=== PATIENT | male | born 1965 | race African-American/Black ===

== ENCOUNTER 2018-01-08 02:46 | Inpatient (IN) | payer OTHER ==
[2018-01-08] VITALS (28 sets, daily range): BP systolic 122–192; BP diastolic 58–96; PULSE 48–85; RESP 16–20; TEMP 98.1–98.7; O2SAT 98–100
[~2018-01-08] VITALS: Ht 190.5 cm; Wt 177.5 kg
[2018-01-08] MEDS ORDERED: METF500T PO (03:04)
[2018-01-08] MEDS ORDERED: LISI-515 PO (03:04)
[2018-01-08] MEDS ORDERED: ATOR20TA15 PO (03:04)
[2018-01-08] MEDS ORDERED: SODIUM CHLORIDE 0.9% FLUSH 10 ML FLUSH IVF PRN (03:30)
[2018-01-08] MEDS ORDERED: ASPIRIN 81 MG CHEW TAB PO ONE (03:30)
[2018-01-08] MEDS ORDERED: ONDANSETRON HCL 4 MG/2 ML VIAL IV PUSH ONE (03:30)
[2018-01-08] MEDS ORDERED: MORPHINE SULFATE 4 MG/ML INJ IV PUSH ONE (03:30)
[2018-01-08] MEDS ORDERED: NALOXONE HCL 0.4 MG/ML AMP ONE (03:46)
--- NOTE | 2018-01-08 03:53 | RADRPT ---
EXAM DATE/TIME: 01/08/2018 03:23 [place] COMPARISON: No previous studies available for comparison. INDICATIONS : Chest pain MEDICAL HISTORY : Hypercholesterolemia. Hypertension Diabetes. SURGICAL HISTORY : None. ENCOUNTER: Initial ACUITY: 1 day PAIN SCORE: 9/10 LOCATION: Bilateral chest Middle. FINDINGS: A single view of the chest demonstrates the lungs to be symmetrically aerated without evidence of mas s, infiltrate or effusion. The cardiomediastinal contours are unremarkable. Osseous structures are intact. CONCLUSION: 1. No acute cardiopulmonary disease. Fredy Packer MD on January 08, 2018 at 3:52 Board Certified Radiologist. This report was verified electronically.
[2018-01-08 04:22] LABS: BICARBONATE 27.3 MEQ/L (21.0-32.0); CALCIUM 8.7 MG/DL (8.5-10.1); CREATININE 1.32 MG/DL (0.60-1.30); MAGNESIUM 1.5 MG/DL (1.5-2.5)
[2018-01-08 04:27] LABS: TROPONIN I 0.03 NG/ML (0.02-0.05)
[2018-01-08 04:30] LABS: AUTOMATED NEUTROPHIL # 5.1 TH/MM3 (1.8-7.7); BASOPHIL % 0.6 % (0.0-2.0); EOSINOPHIL # 0.1 TH/MM3 (0-0.4); HEMATOCRIT 41.3 % (39.0-51.0); HEMOGLOBIN 13.9 GM/DL (13.0-17.0); LYMPH % 15.4 % (9.0-44.0); MEAN CELL VOLUME 81.7 FL (80.0-100.0); MEAN CORPUSCULAR HEMOGLOBIN 27.4 PG (27.0-34.0); MEAN CORPUSCULAR HGB CONC 33.5 % (32.0-36.0); MEAN PLATELET VOLUME 9.3 FL (7.0-11.0); MONO % 6.7 % (0.0-8.0); MONOCYTE # 0.5 TH/MM3 (0-0.9); NEUT % 75.3 % (16.0-70.0); PLATELET COUNT 138 TH/MM3 (150-450); RED BLOOD COUNT 5.05 MIL/MM3 (4.50-5.90); RED CELL DISTRIBUTION WIDTH 15.7 % (11.6-17.2); WHITE BLOOD COUNT 6.8 TH/MM3 (4.0-11.0)
[2018-01-08] MEDS ORDERED: HEPARIN SODIUM - IV 10,000 UNITS/10 ML VIAL IV PUSH ONE (04:30)
[2018-01-08] MEDS ORDERED: NITROGLYCERIN 2% OINT 1 GM PACKET TOPICAL ONE (04:45)
[2018-01-08 04:52] LABS: HEMATOCRIT 41.5 % (39.0-51.0); MEAN CELL VOLUME 82.5 FL (80.0-100.0); MEAN CORPUSCULAR HEMOGLOBIN 27.8 PG (27.0-34.0); MEAN CORPUSCULAR HGB CONC 33.8 % (32.0-36.0); MEAN PLATELET VOLUME 9.3 FL (7.0-11.0); PLATELET COUNT 132 TH/MM3 (150-450); RED BLOOD COUNT 5.03 MIL/MM3 (4.50-5.90); RED CELL DISTRIBUTION WIDTH 15.4 % (11.6-17.2); WHITE BLOOD COUNT 7.3 TH/MM3 (4.0-11.0)
[2018-01-08 04:59] LABS: INTERNATIONAL NORMALIZED RATIO 1.1 RATIO; PROTHROMBIN TIME - PATIENT 11.4 SEC (9.8-11.6)
--- NOTE | 2018-01-08 05:27 | PD ---
HPI . Chest pain Chief Complaint: Cardiac Complaint Time Seen by Provider: 03:18 Travel History International Travel<30 days: No Contact w/Intl Traveler<30days: No Traveled to known affect area: No History of Present Illness HPI Patient presents with a chief complaint of chest pain. Onset was about 2 hours prior to presentation. Patient states that it awakened him from sleep. He states he tried to get up and "walk it off" but was unable to do so. He rates the pain at 8/10. He subsequently presented to us for evaluation. He states that he did have some diaphoresis at the onset of his symptoms. The patient further reports that he has been having some chest pain with exertion for quite some time now. He states that he was evaluated by his primary care provider and underwent a stress test a few months ago which was negative. [facility] Past Medical History High Cholesterol: Yes Diabetes: Yes Patient Takes Glucophage: Yes Hypertension: Yes Past Surgical History Surgical History: No Previous Surgery Social History Alcohol Use: No Tobacco Use: No Substance Use: No Allergies-Medications (Allergen,Severity, Reaction): Coded Allergies: morphine (Verified Adverse Reaction, Severe, Bradycardia , 01/08/18) Hr dropped from 70's to mid 40's-50's along with sweating after 4mg Morphine IV given (01/08/18) Reported Meds & Prescriptions Reported Meds & Active Scripts Active Reported Atorvastatin (Atorvastatin Calcium) 20 Mg Tab Unknown Dose PO HS Lisinopril 20 Mg Tab 20 Mg PO DAILY Metformin (Metformin HCl) 500 Mg Tab 500 Mg PO DAILY With a meal Review of Systems Except as stated in HPI: all other systems reviewed are Neg Cardiovascular: Positive: Chest Pain or Discomfort Respiratory: No: Shortness of Breath Gastrointestinal: No: Nausea, Vomiting Physical Exam Narrative GENERAL: Awake and alert. SKIN: Initially warm/dry. He became diaphoretic following morphine. HEAD: Normocephalic. Atraumatic. EYES: Pupils equal and round. No scleral icterus. No injection or drainage. ENT: No nasal bleeding or discharge. Mucous membranes pink and moist. NECK: Trachea midline. Full range of motion without pain.. CARDIOVASCULAR: Regular rate and rhythm. Heart sounds are normal. RESPIRATORY: No accessory muscle use. Clear to auscultation. Breath sounds equal bilaterally. MUSCULOSKELETAL: No obvious deformities. NEUROLOGICAL: Awake and alert. No obvious cranial nerve deficits. Motor grossly within normal limits. Normal speech. PSYCHIATRIC: Appropriate mood and affect; insight and judgment normal. Data Data Last Documented VS Vital Signs Date Time Temp Pulse Resp B/P (MAP) Pulse Ox O2 Delivery O2 Flow Rate FiO2 01/08/18 06:30 65 20 159/77 (104) 98 Nasal Cannula 2.00 01/08/18 03:01 98.1 Orders Orders Basic Metabolic Panel (Bmp) (01/08/18 03:18) Complete Blood Count With Diff (01/08/18 03:18) Magnesium (Mg) (01/08/18 03:18) Troponin I (01/08/18 03:18) Chest, Single Ap (01/08/18 03:18) Ecg Monitoring (01/08/18 03:18) Iv Access Insert/Monitor (01/08/18 03:18) Oximetry (01/08/18 03:18) Aspirin Chew (Aspirin Chew) (01/08/18 03:30) Sodium Chloride 0.9% Flush (Ns Flush) (01/08/18 03:30) Morphine Inj (Morphine Inj) (01/08/18 03:30) Ondansetron Inj (Zofran Inj) (01/08/18 03:30) Naloxone Inj (Narcan Inj) (01/08/18 03:46) Electrocardiogram (01/08/18 05:15) Heparin Inj (Heparin Inj) (01/08/18 04:30) Heparin Inj (Heparin Inj) (01/08/18 10:30) Heparin Inj (Heparin Inj) (01/08/18 10:30) Heparin-D5w 25,000 U/250 Ml (Heparin-D5w (01/08/18 04:30) Act Partial Throm Time (Ptt) (01/08/18 04:22) Prothrombin Time / Inr (Pt) (01/08/18 04:22) Cbc No Diff, Includes Plts (01/08/18 04:22) Cbc No Diff, Includes Plts (01/11/18 06:00) Act Partial Throm Time (Ptt) (01/08/18 11:22) Occult Blood (Hemoccult) Stool (01/08/18 04:22) Nitroglycerin 2% Oint (Nitroglycerin 2% (01/08/18 04:45) Troponin I (01/08/18 05:04) Potassium Chloride (Kcl) (01/08/18 06:00) Consult Cardiology (01/08/18 ) Admit Order (Ed Use Only) (01/08/18 ) Labs Laboratory Tests Test 01/08/18 03:35 01/08/18 06:00 White Blood Count 7.3 TH/MM3 Red Blood Count 5.03 MIL/MM3 Hemoglobin 14.0 GM/DL Hematocrit 41.5 % Mean Corpuscular Volume 82.5 FL Mean Corpuscular Hemoglobin 27.8 PG Mean Corpuscular Hemoglobin Concent 33.8 % Red Cell Distribution Width 15.4 % Platelet Count 132 TH/MM3 Mean Platelet Volume 9.3 FL Neutrophils (%) (Auto) 75.3 % Lymphocytes (%) (Auto) 15.4 % Monocytes (%) (Auto) 6.7 % Eosinophils (%) (Auto) 2.0 % Basophils (%) (Auto) 0.6 % Neutrophils # (Auto) 5.1 TH/MM3 Lymphocytes # (Auto) 1.0 TH/MM3 Monocytes # (Auto) 0.5 TH/MM3 Eosinophils # (Auto) 0.1 TH/MM3 Basophils # (Auto) 0.0 TH/MM3 CBC Comment DIFF FINAL Differential Comment Prothrombin Time 11.4 SEC Prothromb Time International Ratio 1.1 RATIO Activated Partial Thromboplast Time 21.2 SEC Blood Urea Nitrogen 16 MG/DL Creatinine 1.32 MG/DL Random Glucose 185 MG/DL Calcium Level 8.7 MG/DL Magnesium Level 1.5 MG/DL Sodium Level 141 MEQ/L Potassium Level 3.2 MEQ/L Chloride Level 107 MEQ/L Carbon Dioxide Level 27.3 MEQ/L Anion Gap 7 MEQ/L Estimat Glomerular Filtration Rate 69 ML/MIN Troponin I 0.03 NG/ML 8.16 NG/ML [facility] Medical Decision Making Medical Screen Exam Complete: Yes Emergency Medical Condition: Yes Interpretation(s) His EKG had an intraventricular conduction delay. He has some nonspecific STT wave changes laterally. Differential Diagnosis Differential diagnosis of chest pain includes but is not limited to musculoskeletal pain, pulmonary embolism, acute coronary syndrome, pneumonia, pleurisy Narrative Course The patient presented for chest pain. Chest pain protocol was initiated. He was given aspirin. He was also given morphine. He became diaphoretic and bradycardic following the morphine. A second EKG was done. The second EKG shows some minimal ST segment L in the anterior leads with some reciprocal T- wave inversion. At that point, a STEMI alert was called. However, the patient then reported that he was pain-free. A third EKG was done. The third EKG does show persistence of the minimal ST segment elevation anteriorly with T-wave inversion. Dr. Naylor was then consulted. Since the patient had become pain-free , she asked that he be heparinized and that the EKG be repeated in an hour. This patient's fourth EKG has normalized with the exception of the conduction delay. The patient is pain-free. CBC & BMP Diagram 01/08/18 03:35 Calcium Level 8.7, Magnesium Level 1.5 Initial troponin is 0.03. 2nd trop was 8.16. Dr. Naylor was made aware of this. Arrangements were being made for the patient to be admitted with plans to take him to the [facility]. However, we learned that the patient's insurance had changed from [employer] to [employer]. So, the patient needed to be admitted to [facility] with a consult to the non-CP manager council. I called Dr. Guillen. He asked that I put in a consult to Dr. Fraga. This has been done. In the meantime, the patient has remained pain-free. He has had ASA, NTG and is on heparin. Critical Care Narrative Aggregate critical care time was 60 minutes. Time to perform other separately billable procedures was not included in the critical care time. My time did not include minutes spent treating any other patients simultaneously or on activities that did not directly contribute to the patient's treatment. The services I provided to this patient were to treat and/or prevent clinically significant deterioration due to acute DE I provided critical care services requiring my management, as noted below: Chart data review, documentation time, medication orders and management, vital sign assessments/reviewing monitor data, ordering and reviewing lab tests, ordering and interpreting/reviewing x-rays and diagnostic studies, care of the patient and discussion of the patient with the admitting physicians Diagnosis Primary Impression: Chest pain Qualified Codes: R07.9 - Chest pain, unspecified Additional Impression: NSTEMI (non-ST elevated myocardial infarction) Admitting Information Admitting Physician Requests: Admit Condition: Stable Destinee Henriquez MD Jan 08, 2018 05:27
[2018-01-08] MEDS ORDERED: POTASSIUM CHLORIDE 20 MEQ CONTROLLED RELEASE TAB PO ONE ×2 (06:00→12:30)
[2018-01-08] MEDS: HEPARIN-D5W 25,000 U/250 ML 250 ML IV PRN (06:02)
[2018-01-08] MEDS ORDERED: ATORVASTATIN 40 MG TAB PO ONE (09:15)
[2018-01-08] MEDS ORDERED: GLUCAGON 1 MG/ML VIAL OTHER PRN (09:15)
[2018-01-08] MEDS ORDERED: ALPRAZolam 0.25 MG TAB PO PRN (09:15)
[2018-01-08] MEDS ORDERED: ACETAMINOPHEN 325 MG TAB PO PRN (09:15)
[2018-01-08] MEDS ORDERED: MAGNESIUM HYDROXIDE SUSP 30 ML CUP PO PRN (09:15)
[2018-01-08] MEDS ORDERED: BISACODYL 10 MG SUPP RECTAL PRN (09:15)
[2018-01-08] MEDS ORDERED: NITROGLYCERIN 0.4 MG SL 25 TABS/BTL SL PRN (09:15)
[2018-01-08] MEDS ORDERED: SENNOSIDES 8.6 MG TAB PO PRN (09:15)
[2018-01-08] MEDS ORDERED: NALOXONE HCL 0.4 MG/ML AMP IV PUSH PRN (09:15)
[2018-01-08] MEDS ORDERED: ONDANSETRON HCL 4 MG/2 ML VIAL IV PUSH PRN (09:15)
[2018-01-08] MEDS ORDERED: ZOLPIDEM TARTRATE 5 MG TAB PO PRN (09:15)
[2018-01-08] MEDS ORDERED: SODIUM CHLORIDE 0.9% FLUSH 10 ML FLUSH IV FLUSH PRN ×2 (09:15)
[2018-01-08] MEDS ORDERED: DEXTROSE 50% IN WATER 50 ML VIAL(D50) IV PUSH PRN (09:15)
[2018-01-08] MEDS ORDERED: LACTULOSE SYRUP 20 GM/30 ML CUP PO PRN (09:15)
[2018-01-08] MEDS ORDERED: METOCLOPRAMIDE HCL 10 MG/2 ML VIAL IV PUSH PRN (09:15)
[2018-01-08] MEDS ORDERED: HYDROmorphone HCL PF 0.5 MG/0.5 ML SYRINGE IV PUSH PRN (09:30)
[2018-01-08] MEDS ORDERED: HYDROmorphone HCL PF 2 MG/ML VIAL IV PUSH PRN ×2 (09:30)
[2018-01-08] MEDS: NITROGLYCERIN 2% OINT 1 GM PACKET TOP SCH ×3 (09:55→22:06)
[2018-01-08] MEDS ORDERED: diphenhydrAMINE HCL 50 MG CAP PO SCH (10:00)
[2018-01-08] MEDS ORDERED: DIAZEPAM 10 MG TAB PO SCH (10:00)
[2018-01-08] MEDS ORDERED: MIDAZOLAM HCL 2 MG/2 ML VIAL IV PUSH SCH (10:00)
[2018-01-08 10:16] LABS: ALBUMIN 3.4 GM/DL (3.4-5.0); ALT (GPT) 50 U/L (12-78); AST (GOT) 156 U/L (15-37); BICARBONATE 28.5 MEQ/L (21.0-32.0); BLOOD UREA NITROGEN 15 MG/DL (7-18); CHLORIDE 108 MEQ/L (98-107); CREATININE 1.21 MG/DL (0.60-1.30); GLOMERULAR FILTRATION RATE 77 ML/MIN (>89); GLUCOSE,RANDOM 112 MG/DL (74-106); SODIUM (NA) 141 MEQ/L (136-145)
[2018-01-08 10:18] LABS: ALKALINE PHOSPHATASE 59 U/L (45-117); TOTAL BILIRUBIN ADULT 0.5 MG/DL (0.2-1.0)
--- NOTE | 2018-01-08 10:18 | MB ---
cc: Yefri Guillen MD DATE: 01/08/2018 REASON FOR CONSULTATION: Acute non-ST elevation myocardial infarction. HISTORY OF PRESENT ILLNESS: The patient is a pleasant 52-year-old male with a history of hypertension, diabetes, hyperlipidemia, who was in his usual state of health up until 1 a.m. this morning when he developed fairly severe substernal chest discomfort described as "pressure" associated with diaphoresis. He came to the emergency department for further evaluation and treatment. En route to the emergency department, he was given aspirin and sublingual nitroglycerin with considerable relief of his symptoms, although it persisted. In the emergency department, the chest discomfort once again escalated in intensity. He was given morphine and had an allergic reaction to the drug. The episode of chest discomfort probably lasted about 2-1/2 hours. In retrospect, he notes similar chest discomforts over the past year, although much less intensity and usually never lasting more than a few minutes. He denies pleurisy, dizziness, syncope, near syncope, palpitations, pedal edema, paroxysmal nocturnal dyspnea. Currently, he is resting comfortably, denying any chest discomfort. PAST MEDICAL HISTORY: 1. Hyperlipidemia. 2. Hypertension. 3. Diabetes. CARDIAC MEDICATIONS AT HOME: Atorvastatin 20 mg at bedtime, lisinopril 20 mg daily. ALLERGIES: MORPHINE. FAMILY HISTORY: There is no significant family history of early myocardial infarction. SOCIAL HISTORY: The patient denies any history of alcohol or tobacco abuse. REVIEW OF SYSTEMS: As in the history of present illness, otherwise negative or noncontributory. He also denies headache, visual changes, abdominal pain, melena, dyspepsia, bright red blood per rectum, flu symptoms. PHYSICAL EXAMINATION: VITAL SIGNS: His blood pressure 148/76 with a pulse of 60, respirations 18. GENERAL: He is a well-developed, well-nourished male in no acute distress. NECK: Jugular venous pressure is normal. Carotid pulses are 2+ bilaterally and without bruits. CHEST: Reveals clear lungs gaviria. CARDIAC: He has a bradycardic, regular rhythm without S3, S4, or murmur. ABDOMEN: He has a soft, nontender abdomen. Bowel sounds are present. There is no definite hepatosplenomegaly. EXTREMITIES: Reveals no clubbing, cyanosis or edema. Peripheral pulses are normal throughout. DATA: EKG from 01/08/2018 at 3 a.m. shows normal sinus rhythm, nonspecific ST and T-wave changes. EKG from 01/08/2018 at 3:47 a.m. shows sinus rhythm with anterolateral T-wave inversion suggestive of ischemia. EKG from 01/08/2018 at 5:31 a.m. shows complete resolution of the anterolateral T-wave inversion. LABORATORY DATA: Includes normal CBC, potassium 3.2, BUN 16, creatinine 1.32. Troponin 8.16. Chest x-ray shows no acute disease. IMPRESSION: Acute non-ST elevation myocardial infarction in his A 52-year-old male with a history of hypertension, diabetes, hyperlipidemia. EKGs and cardiac enzymes are consistent with acute myocardial infarction. He is currently chest pain free. There has been no evidence for arrhythmias or congestive heart failure so far. Because of the instability of his symptoms and his multiple risk factors for coronary disease, he has been recommended cardiac catheterization with probable percutaneous coronary intervention, the risks of which have been explained to him including, but not limited to , myocardial infarction, stroke, arrhythmia, bleeding, infection, renal failure. He agrees to proceed. RECOMMENDATIONS: 1. Start low-dose beta keila therapy with monitoring of his heart rate, which at times has been relatively low. 2. Continue his PADMINI inhibitor. 3. Check a fasting lipid profile and continue statin therapy. 4. Cardiac catheterization tomorrow morning. MD TRACY Kinsey/VIMAL , 09:58 AM , 10:17 AM [place]
[2018-01-08] MEDS ORDERED: HEPARIN SODIUM - IV 10,000 UNITS/10 ML VIAL IV PUSH PRN ×2 (10:30)
[2018-01-08] MEDS: CARVEDILOL 3.125 MG TAB PO SCH ×2 (11:03→22:06)
[2018-01-08] MEDS: SODIUM CHLOR 0.9% 1000 ML INJ 1,000 ML IV SCH ×2 (11:04→20:42)
[2018-01-08 11:36] LABS: TROPONIN I GREATER THAN 40.00 NG/ML (0.02-0.05)
[2018-01-08] MEDS: INSULIN ASPART SUPPLEMENTAL SCALE SQ SCH ×3 (12:10→21:00)
--- NOTE | 2018-01-08 12:23 | HHI.HP ---
[facility] Unknown Admission Diagnosis NSTEMI Diagnoses: (1) NSTEMI (non-ST elevated myocardial infarction) Diagnosis: Principal (2) Hypertension Diagnosis: Principal (3) Hyperlipidemia Diagnosis: Principal (4) Diabetes Diagnosis: Principal (5) Obese Diagnosis: Secondary (6) Chest pain Diagnosis: Principal Chief Complaint: Chest pain Travel History International Travel<30 Days: No Contact w/Intl Traveler <30 Da: No Traveled to Known Affected Are: No History of Present Illness Patient is a 52-year-old -[place] gentleman. He presented to the emergency department chief complaint chest pain. Onset was a couple hours prior to presentation. Patient states that it awakened him from sleep. He tried to get up and "walk it off". But was unable to do so. His pain was 8 out of 10 at the most. Therefore he decided to come to the emergency department for evaluation. He did have some diaphoresis at the time of onset his troponins have been positive now. Patient has been having some chest pain with exertion for some time now. Was evaluated by his primary care provider and underwent a stress test he states that was negative Patient now has positive troponins has been seen by cardiology and is scheduled for cardiac catheterization tomorrow Review of Systems Constitutional: COMPLAINS OF: Diaphoretic episodes, Fatigue, DENIES: Fever, Weight gain, Weight loss, Chills, Dizziness, Change in appetite, Night Sweats Endocrine: DENIES: Heat/cold intolerance, Polydipsia, Polyuria, Polyphagia Eyes: DENIES: Blurred vision, Diplopia, Eye inflammation, Eye pain, Vision loss , Photosensitivity, Double Vision Ears, nose, mouth, throat: DENIES: Tinnitus, Hearing loss, Vertigo, Nasal discharge, Oral lesions, Throat pain, Hoarseness, Ear Pain, Running Nose, Epistaxis, Sinus Pain, Toothache Respiratory: DENIES: Apneas, Cough, Snoring, Wheezing, Hemoptysis, Sputum production, Shortness of breath Cardiovascular: COMPLAINS OF: Chest pain, Dyspnea on Exertion, Orthopnea, DENIES: Palpitations, Syncope, PND, Lower Extremity Edema, Claudication Gastrointestinal: DENIES: Abdominal pain, Black stools, Bloody stools, Constipation, Diarrhea, Nausea, Vomiting, Difficulty Swallowing, Anorexia Genitourinary: DENIES: Sexual dysfunction, Urinary frequency, Urinary incontinence, Urgency, Hematuria, Dysuria, Nocturia Musculoskeletal: DENIES: Joint pain, Muscle aches, Stiffness, Joint Swelling, Back pain Integumentary: DENIES: Abnormal pigmentation, Nail changes, Pruritus Hematologic/lymphatic: DENIES: Bruising, Lymphadenopathy Immunologic/allergic: DENIES: Eczema, Urticaria Neurologic: DENIES: Abnormal gait, Headache, Localized weakness, Paresthesias, Seizures, Speech Problems, Tremor Psychiatric: DENIES: Anxiety, Confusion, Mood changes, Depression, Hallucinations, Agitation, Suicidal Ideation Except as stated in HPI: all other systems reviewed are Neg Past Family Social History Past Medical History Diabetes on metformin Hypertension Hyperlipidemia Obesity Chest pain Past Surgical History Denies any procedure Reported Medications Reported Meds & Active Scripts Active Reported Atorvastatin (Atorvastatin Calcium) 20 Mg Tab Unknown Dose PO HS Lisinopril 20 Mg Tab 20 Mg PO DAILY Metformin (Metformin HCl) 500 Mg Tab 500 Mg PO DAILY With a meal Allergies: Coded Allergies: morphine (Verified Adverse Reaction, Severe, Bradycardia , 01/08/18) Hr dropped from 70's to mid 40's-50's along with sweating after 4mg Morphine IV given (01/08/18) Active Ordered Medications Current Medications Aspirin (Aspirin Chew) 324 mg ONCE ONCE PO ; Start 01/08/18 at 03:30; Stop at 03:31; Status DC Sodium Chloride (NS Flush) 2 ml UNSCH PRN IVF FLUSH AFTER USING IV ACCESS Last administered on 01/08/18at 03:36; Start 01/08/18 at 03:30; Stop 01/08/18 at 09:14 ; Status DC Morphine Sulfate (Morphine Inj) 4 mg ONCE ONCE IV PUSH Last administered on at 03:35; Start 01/08/18 at 03:30; Stop 01/08/18 at 03:31; Status DC Ondansetron HCl (Zofran Inj) 4 mg ONCE ONCE IV PUSH Last administered on at 03:36; Start 01/08/18 at 03:30; Stop 01/08/18 at 03:31; Status DC Naloxone HCl (Narcan Inj) 0.4 mg STK-MED ONCE .ROUTE Last administered on at 03:48; Start 01/08/18 at 03:46; Stop 01/08/18 at 03:47; Status DC Heparin Sodium (Porcine) (Heparin Inj) 4,000 units ONCE ONCE IV PUSH Last administered on 01/08/18at 06:01; Start 01/08/18 at 04:30; Stop 01/08/18 at 04:31 ; Status DC Heparin Sodium (Porcine) (Heparin Inj) 5,000 units UNSCH PRN IV PUSH APTT LESS THAN 25; Start 01/08/18 at 10:30 Heparin Sodium (Porcine) (Heparin Inj) 2,500 units UNSCH PRN IV PUSH APTT 25 TO 39; Start 01/08/18 at 10:30 Heparin Sodium/ Dextrose 250 ml @ 10 mls/hr TITRATE PRN IV Coagulation Management Last administered on 01/08/18at 06:02; Start 01/08/18 at 04:30 Nitroglycerin (Nitroglycerin 2% Oint) 1 inch ONCE ONCE TOPICAL Last administered on 01/08/18at 04:54; Start 01/08/18 at 04:45; Stop 01/08/18 at 04:46 ; Status DC Potassium Chloride (KCl) 40 meq ONCE ONCE PO Last administered on 01/08/18at 06 :49; Start 01/08/18 at 06:00; Stop 01/08/18 at 06:01; Status DC Dextrose (D50w (Vial) Inj) 50 ml UNSCH PRN IV PUSH HYPOGLYCEMIA-SEE COMMENTS; Start 01/08/18 at 09:15 Glucagon (Glucagon Inj) 1 mg UNSCH PRN OTHER HYPOGLYCEMIA-SEE COMMENTS; Start 01/08/18 at 09:15 Insulin Aspart (NovoLOG SUPPLEMENTAL SCALE) 1 ACHS SLIDING SCALE SQ ; Start at 12:00 Sodium Chloride (NS Flush) 2 ml BID IV FLUSH ; Start 01/08/18 at 21:00; Stop at 21:00; Status DC Sodium Chloride (NS Flush) 2 ml UNSCH PRN IV FLUSH FLUSH AFTER USING IV ACCESS ; Start 01/08/18 at 09:15; Stop 01/08/18 at 09:15; Status DC Aspirin (Ecotrin Ec) 325 mg DAILY PO ; Start 01/09/18 at 09:00 Nitroglycerin (Nitroglycerin 2% Oint) 1 inch Q6H TOP Last administered on at 09:55; Start 01/08/18 at 10:00 Nitroglycerin (Nitrostat Sl) 0.4 mg Q5M PRN SL CHEST PAIN; Start 01/08/18 at 09 :15 Acetaminophen (Tylenol) 650 mg Q6H PRN PO HEADACHE OR TEMP > 101 F; Start 01/08 at 09:15 Alprazolam (Xanax) 0.25 mg Q8H PRN PO ANXIETY; Start 01/08/18 at 09:15 Ondansetron HCl (Zofran Inj) 4 mg Q6H PRN IV PUSH NAUSEA OR VOMITING; Start at 09:15 Sodium Chloride (NS Flush) 2 ml UNSCH PRN IV FLUSH FLUSH AFTER USING IV ACCESS ; Start 01/08/18 at 09:15 Sodium Chloride (NS Flush) 2 ml BID IV FLUSH ; Start 01/08/18 at 21:00 Metoclopramide HCl (Reglan Inj) 5 mg Q6H PRN IV PUSH NAUSEA OR VOMITING; Start 01/08/18 at 09:15 Zolpidem Tartrate (Ambien) 5 mg HS PRN PO INSOMNIA; Start 01/08/18 at 09:15 Acetaminophen (Tylenol) 650 mg Q6H PRN PO PAIN SCALE 1 TO 2; Start 01/08/18 at 09:15 Oxycodone/ Acetaminophen (Percocet 5-325 Mg) 1 tab Q6H PRN PO PAIN SCALE 3 TO 5; Start 01/08/18 at 09:15 Oxycodone/ Acetaminophen (Percocet 10-325 Mg) 1 tab Q6H PRN PO PAIN SCALE 6 TO 10; Start 01/08/18 at 09:15 Hydromorphone HCl (Dilaudid Pf Inj) 0.5 mg Q3H PRN IV PUSH Pain 3-5; if unable to take PO; Start 01/08/18 at 09:30 Hydromorphone HCl (Dilaudid Pf Inj) 1 mg Q3H PRN IV PUSH Pain 6-10;if unable to take PO; Start 01/08/18 at 09:30 Hydromorphone HCl (Dilaudid Pf Inj) 1 mg Q3H PRN IV PUSH BREAKTHROUGH PAIN; Start 01/08/18 at 09:30 Naloxone HCl (Narcan Inj) 0.4 mg UNSCH PRN IV PUSH SEE LABEL COMMENTS; Start at 09:15 Senna/Docusate Sodium (Rosa-Colace) 1 tab BID PO ; Start 01/08/18 at 21:00 Magnesium Hydroxide (Milk Of Magnesia Liq) 30 ml Q12H PRN PO Mild constipation ; Start 01/08/18 at 09:15 Sennosides (Senokot) 17.2 mg Q12H PRN PO Moderate constipation; Start 01/08/18 at 09:15 Bisacodyl (Dulcolax Supp) 10 mg DAILY PRN RECTAL SEVERE CONSITIPATION; Start at 09:15 Lactulose (Lactulose Liq) 30 ml DAILY PRN PO SEVERE CONSITIPATION; Start at 09:15 Atorvastatin Calcium (Lipitor) 40 mg DAILY PO ; Start 01/09/18 at 09:00 Atorvastatin Calcium (Lipitor) 40 mg ONCE ONCE PO ; Start 01/08/18 at 09:15; Stop 01/08/18 at 09:16; Status DC Lisinopril (Prinivil) 20 mg DAILY PO ; Start 01/09/18 at 09:00 Carvedilol (Coreg) 3.125 mg Q12HR PO Last administered on 01/08/18at 11:03; Start 01/08/18 at 10:00 Sodium Chloride 1,000 ml @ 100 mls/hr Q10H IV Last administered on 01/08/18at 11:04; Start 01/08/18 at 09:58; Stop 01/13/18 at 09:57 Diphenhydramine HCl (Benadryl) 50 mg DIRECTOR OF NUCLEAR MEDICINE PO ; Start 01/08/18 at 10:00; Stop 01/12/18 at 09:59 Diazepam (Valium) 10 mg DIRECTOR OF NUCLEAR MEDICINE PO ; Start 01/08/18 at 10:00; Stop 01/12/18 at 09:59 Midazolam HCl (Versed Inj) 1 mg [employer]OR OF NUCLEAR MEDICINE IV PUSH ; Start 01/08/18 at 10:00; Stop 01/12/18 at 09:59 Family History Mother has diabetes and hypertension Father has no medical problems according to patient Social History Works at the [place] [facility] Denies any tobacco or alcohol or illicit Physical Exam Vital Signs Vital Signs Date Time Temp Pulse Resp B/P (MAP) Pulse Ox O2 Delivery O2 Flow Rate FiO2 01/08/18 11:32 01/08/18 09:50 60 18 148/76 (100) 100 Room Air 01/08/18 09:18 99 Nasal Cannula 2.00 01/08/18 06:30 65 20 159/77 (104) 98 Nasal Cannula 2.00 01/08/18 05:06 73 19 172/89 (116) 100 Nasal Cannula 2.00 01/08/18 04:41 70 20 192/96 (128) 100 Nasal Cannula 2.00 01/08/18 04:01 48 20 130/59 (82) 100 Nasal Cannula 2.00 01/08/18 03:55 100 Nasal Cannula 3.00 01/08/18 03:55 100 3.00 01/08/18 03:53 55 17 126/60 (82) 100 Nasal Cannula 2.00 01/08/18 03:48 54 17 122/58 (79) 100 Nasal Cannula 2.00 01/08/18 03:42 55 20 128/86 (100) 98 Nasal Cannula 2.00 01/08/18 03:40 Room Air 01/08/18 03:01 98.1 71 20 128/66 (86) 99 Room Air Physical Exam GENERAL: This is a well-nourished, well-developed patient, in no apparent distress. Awake alert and oriented 3 talkative and cooperative SKIN: No rashes, ecchymoses or lesions. Cool and dry. HEAD: Atraumatic. Normocephalic. No temporal or scalp tenderness. EYES: Pupils equal round and reactive. Extraocular motions intact. No scleral icterus. No injection or drainage. ENT: Nose without bleeding, purulent drainage or septal hematoma. Throat without erythema, tonsillar hypertrophy or exudate. Uvula midline. Airway patent. NECK: Trachea midline. No JVD or lymphadenopathy. Supple, nontender, no meningeal signs. CARDIOVASCULAR: Regular rate and rhythm without murmurs, gallops, or rubs. S1- S2 no S3 or S4 RESPIRATORY: Clear to auscultation. Breath sounds equal bilaterally. No wheezes , rales, or rhonchi. GASTROINTESTINAL: Abdomen soft, non-tender, nondistended. No hepato-splenomegaly , or palpable masses. No guarding. MUSCULOSKELETAL: Extremities without clubbing, cyanosis, or edema. No joint tenderness, effusion, or edema noted. No calf tenderness. Negative Homans sign bilaterally. NEUROLOGICAL: Awake and alert. Cranial nerves II through XII intact. Motor and sensory grossly within normal limits. Five out of 5 muscle strength in all muscle groups. Normal speech. Insight and judgment is good Mood and behaviors appropriate Laboratory Laboratory Tests Test 01/08/18 03:35 01/08/18 06:00 01/08/18 09:31 White Blood Count 7.3 Red Blood Count 5.03 Hemoglobin 14.0 Hematocrit 41.5 Mean Corpuscular Volume 82.5 Mean Corpuscular Hemoglobin 27.8 Mean Corpuscular Hemoglobin Concent 33.8 Red Cell Distribution Width 15.4 Platelet Count 132 Mean Platelet Volume 9.3 Neutrophils (%) (Auto) 75.3 Lymphocytes (%) (Auto) 15.4 Monocytes (%) (Auto) 6.7 Eosinophils (%) (Auto) 2.0 Basophils (%) (Auto) 0.6 Neutrophils # (Auto) 5.1 Lymphocytes # (Auto) 1.0 Monocytes # (Auto) 0.5 Eosinophils # (Auto) 0.1 Basophils # (Auto) 0.0 CBC Comment DIFF FINAL Differential Comment Prothrombin Time 11.4 Prothromb Time International Ratio 1.1 Activated Partial Thromboplast Time 21.2 Blood Urea Nitrogen 16 15 Creatinine 1.32 1.21 Random Glucose 185 112 Calcium Level 8.7 9.0 Magnesium Level 1.5 Sodium Level 141 141 Potassium Level 3.2 4.0 Chloride Level 107 108 Carbon Dioxide Level 27.3 28.5 Anion Gap 7 5 Estimat Glomerular Filtration Rate 69 77 Troponin I 0.03 8.16 GREATER THAN 40.00 Total Protein 8.0 Albumin 3.4 Alkaline Phosphatase 59 Aspartate Amino Transf (AST/SGOT) 156 Alanine Aminotransferase (ALT/SGPT) 50 Total Bilirubin 0.5 Total Creatine Kinase 970 Creatine Kinase MB 74.1 Creatine Kinase MB % 7.6 Result Diagram: 01/08/18 0335 01/08/18 0931 Imaging Last Impressions Chest X-Ray 01/08/188 Signed Impressions: Service Date/Time: Monday, January 08, 2018 03:23 - CONCLUSION: 1. No acute cardiopulmonary disease. MD Thomas Hendrickson VTE Risk Assessment Caprinandre VTE Risk Assessment: Mod/High Risk (score >= 2) Caprini Risk Assessment Model Point Value = 1 Point Value = 2 Point Value = 3 Point Value = 5 Age 41-60 Minor surgery BMI > 25 kg/m2 Swollen legs Varicose veins or History of unexplained or recurrent spontaneous Oral contraceptives or hormone replacement Sepsis (< 1 month) Serious lung disease, including pneumonia (< 1 month) Abnormal pulmonary function Acute myocardial infarction Congestive heart failure (< 1 month) History of inflammatory bowel disease Medical patient at bed rest Age 61-74 Arthroscopic surgery Major open surgery (> 45 min) Laparoscopic surgery (> 45 min) Malignancy Confined to bed (> 72 hours) Immobilizing plaster cast Central venous access Age >= 75 History of VTE Family history of VTE Factor V Leiden Prothrombin [id number] Lupus anticoagulant Anticardiolipin antibodies Elevated serum homocysteine Heparin-induced thrombocytopenia Other congenital or acquired thrombophilia Stroke (< 1 month) Elective arthroplasty Hip, pelvis, or leg fracture Acute spinal cord injury (< 1 month) Prophylaxis Regimen Total Risk Factor Score Risk Level Prophylaxis Regimen 0-1 Low Early ambulation 2 Moderate Order ONE of the following: *Sequential Compression Device (SCD) *Heparin 5000 units SQ BID 3-4 Higher Order ONE of the following medications: *Heparin 5000 units SQ TID *Enoxaparin/Lovenox 40 mg SQ daily (WT < 150 kg, CrCl > 30 mL/min) *Enoxaparin/Lovenox 30 mg SQ daily (WT < 150 kg, CrCl > 10-29 mL/min) *Enoxaparin/Lovenox 30 mg SQ BID (WT < 150 kg, CrCl > 30 mL/min) AND/OR *Sequential Compression Device (SCD) 5 or more Highest Order ONE of the following medications: *Heparin 5000 units SQ TID (Preferred with Epidurals) *Enoxaparin/Lovenox 40 mg SQ daily (WT < 150 kg, CrCl > 30 mL/min) *Enoxaparin/Lovenox 30 mg SQ daily (WT < 150 kg, CrCl > 10-29 mL/min) *Enoxaparin/Lovenox 30 mg SQ BID (WT < 150 kg, CrCl > 30 mL/min) AND *Sequential Compression Device (SCD) Assessment and Plan Problem List: (1) NSTEMI (non-ST elevated myocardial infarction) ICD Code: I21.4 - Non-ST elevation (NSTEMI) myocardial infarction (2) Hypertension ICD Code: I10 - Essential (primary) hypertension (3) Obese ICD Code: E66.9 - Obesity, unspecified (4) Hyperlipidemia ICD Code: E78.5 - Hyperlipidemia, unspecified (5) Diabetes ICD Code: E11.9 - Type 2 diabetes mellitus without complications Assessment and Plan Non-ST elevation NH scheduled to undergo cardiac catheterization tomorrow with cardiology Has already had positive troponins that have gone up twice already in the 40s now Continue morphine as needed continue nitrates as needed continue on aspirin. Hypertension resume home medications Hyperlipidemia continue on statin Diabetes mellitus continue on sliding scale coverage with Accu-Cheks before meals and at bedtime and diabetic diet N.p.o. after midnight for cardiac catheterization Obesity weight loss recommended Renal insufficiency monitor labs Continue on sliding scale coverage and Accu-Cheks before meals and at bedtime Hypokalemia will replace Code Status FULL CODE Discussed Condition With RN AND PT AND ER AND FAMILY Physician Certification 2 Midnight Certification Type: Admission for Inpatient Services Order for Inpatient Services The services are ordered in accordance with Medicare regulations or non- Medicare payer requirements, as applicable. In the case of services not specified as inpatient-only, they are appropriately provided as inpatient services in accordance with the 2-midnight benchmark. Estimated LOS (days): 2 days is the estimated time the patient will need to remain in the hospital, assuming treatment plan goals are met and no additional complications. Post-Hospital Plan: Home Problem Qualifiers (1) Chest pain: Qualified Codes: R07.9 - Chest pain, unspecified Renard King DO Jan 08, 2018 12:23
[2018-01-08] MEDS ORDERED: PANTOPRAZOLE SOD 40 MG DELAYED RELEASE TAB PO ONE (12:45)
--- NOTE | 2018-01-08 15:53 | EKG ---
Date Performed: 01/08/2018 Time Performed: 03:56:40 PTAGE: 52 years EKG: SINUS BRADYCARDIA MODERATE INTRAVENTRICULAR CONDUCTION DELAY MODERATE T-WAVE ABNORMALITY, C ONSIDER ANTEROLATERAL ISCHEMIA ABNORMAL ECG There is questionable anterior ST elevation. Clinical cor relation suggested. Likely no significant change. PREVIOUS TRACING : 01/08/2018 03.47.51 DOCTOR: Wendy Fraga Interpretating Date/Time 01/08/2018 15:53:10
--- NOTE | 2018-01-08 15:53 | EKG ---
Date Performed: 01/08/2018 Time Performed: 03:47:51 PTAGE: 52 years EKG: SINUS BRADYCARDIA MODERATE INTRAVENTRICULAR CONDUCTION DELAY MODERATE T-WAVE ABNORMALITY, C ONSIDER ANTEROLATERAL ISCHEMIA ABNORMAL ECG Compared to PREVIOUS TRACING , the patient now has what appears to be biphasic anterior T-waves, conc erning for an involving PA. PREVIOUS TRACIN01/08/2018 03.00.21 DOCTOR: Wendy Fraga Interpretating Date/Time 01/08/2018 15:52:14
--- NOTE | 2018-01-08 15:53 | EKG ---
Date Performed: 01/08/2018 Time Performed: 03:00:21 PTAGE: 52 years EKG: Normal Sinus rhythm Intraventricular conduction delay Nonspecific ST & T wave abnormality ABNORMAL ECG NO PREVIOUS TRACING DOCTOR: Wendy Fraga Interpretating Date/Time 01/08/2018 15:51:24
--- NOTE | 2018-01-08 15:55 | EKG ---
Date Performed: 01/08/2018 Time Performed: 09:58:23 PTAGE: 52 years EKG: Sinus rhythm MODERATE INTRAVENTRICULAR CONDUCTION DELAY NONSPECIFIC ST & T-WAVE ABNORMALITY BORDERLINE ECG Since PREVIOUS TRACING , no significant change noted PREVIOUS TRACIN01/08/2018 05.31 DOCTOR: Wendy Fraga Interpretating Date/Time 01/08/2018 15:54:05
--- NOTE | 2018-01-08 15:55 | EKG ---
Date Performed: 01/08/2018 Time Performed: 05:31:05 PTAGE: 52 years EKG: Sinus rhythm MODERATE INTRAVENTRICULAR CONDUCTION DELAY BORDERLINE ECG Compared to PREVIOUS TRACING , the ST segments have improved and are back to baseline. PREVIOUS LEROY N01/08/2018 03.56.40 DOCTOR: Wendy Fraga Interpretating Date/Time 01/08/2018 15:53:50
[2018-01-08 17:30] LABS: TROPONIN I 38.6 NG/ML (0.02-0.05)
[2018-01-08 20:06] LABS: CHOLESTEROL/ HDL RATIO 3.36 RATIO; HDL CHOLESTEROL 47.2 MG/DL (40.0-60.0)
[2018-01-08 20:35] LABS: TROPONIN I 32.6 NG/ML (0.02-0.05)
[2018-01-08] MEDS: SODIUM CHLORIDE 0.9% FLUSH 10 ML FLUSH IV FLUSH SCH (21:00)
[2018-01-08] MEDS: DOCUSATE SODIUM 50 MG/SENNA 8.6 MG TAB PO SCH (21:00)
[2018-01-08] MEDS ORDERED: SODIUM CHLORIDE 0.9% FLUSH 10 ML FLUSH IV FLUSH SCH (21:00)
[2018-01-09] VITALS (27 sets, daily range): BP systolic 135–151; BP diastolic 73–89; PULSE 60–100; RESP 16; TEMP 98.2–99.6; O2SAT 97–100
[2018-01-09 03:03] LABS: AUTOMATED NEUTROPHIL # 4.8 TH/MM3 (1.8-7.7); BASOPHIL % 0.6 % (0.0-2.0); EOSINOPHIL # 0.2 TH/MM3 (0-0.4); EOSINOPHIL % 2.5 % (0.0-4.0); LYMPH % 16.8 % (9.0-44.0); LYMPHOCYTE # 1.1 TH/MM3 (1.0-4.8); MEAN CELL VOLUME 81.6 FL (80.0-100.0); MEAN CORPUSCULAR HGB CONC 34.3 % (32.0-36.0); MEAN PLATELET VOLUME 9.2 FL (7.0-11.0); MONO % 9.5 % (0.0-8.0); MONOCYTE # 0.6 TH/MM3 (0-0.9); NEUT % 70.6 % (16.0-70.0); PLATELET COUNT 124 TH/MM3 (150-450); RED BLOOD COUNT 4.65 MIL/MM3 (4.50-5.90); RED CELL DISTRIBUTION WIDTH 15.4 % (11.6-17.2); WHITE BLOOD COUNT 6.7 TH/MM3 (4.0-11.0)
[2018-01-09 03:13] LABS: ALBUMIN 3.1 GM/DL (3.4-5.0); ALT (GPT) 39 U/L (12-78); AST (GOT) 134 U/L (15-37); BICARBONATE 28.2 MEQ/L (21.0-32.0); BLOOD UREA NITROGEN 13 MG/DL (7-18); CALCIUM 8.6 MG/DL (8.5-10.1); CHLORIDE 109 MEQ/L (98-107); GLOMERULAR FILTRATION RATE 77 ML/MIN (>89); GLUCOSE,RANDOM 118 MG/DL (74-106); MAGNESIUM 1.7 MG/DL (1.5-2.5); PHOSPHORUS 2.9 MG/DL (2.5-4.9); SODIUM (NA) 143 MEQ/L (136-145)
[2018-01-09 03:22] LABS: ALKALINE PHOSPHATASE 48 U/L (45-117); FREE T4 0.98 NG/DL (0.76-1.46); TOTAL BILIRUBIN ADULT 0.5 MG/DL (0.2-1.0)
[2018-01-09] MEDS: NITROGLYCERIN 2% OINT 1 GM PACKET TOP SCH ×4 (04:07→21:45)
[2018-01-09] MEDS: HEPARIN-D5W 25,000 U/250 ML 250 ML IV PRN (04:17)
[2018-01-09] MEDS: SODIUM CHLOR 0.9% 1000 ML INJ 1,000 ML IV SCH ×2 (06:19→15:58)
[2018-01-09] MEDS ORDERED: VERAPAMIL HCL 5 MG/2 ML VIAL ONE (07:11)
[2018-01-09] MEDS ORDERED: HEPARIN-NS/PF FLUSH BAG 2,000 ML IV FLUSH ONE (07:11)
[2018-01-09] MEDS ORDERED: HEPARIN SODIUM - IV 10,000 UNITS/10 ML VIAL ONE (07:11)
[2018-01-09] MEDS ORDERED: MIDAZOLAM HCL 2 MG/2 ML VIAL ONE ×2 (07:11→07:22)
[2018-01-09] MEDS ORDERED: NITROGLYCERIN INJ 5 ML ONE (07:11)
[2018-01-09] MEDS: INSULIN ASPART SUPPLEMENTAL SCALE SQ SCH ×4 (08:00→21:00)
--- NOTE | 2018-01-09 08:11 | PD.CARD.PN ---
Subjective Subjective Remarks No further CP. No dyspnea, dizziness, palpitations. Objective Medications Item Value Date Time Aspirin 325 mg 01/09/18 0900 (Ecotrin Ec) DAILY/PO Atorvastatin 40 mg 01/09/18 0900 Calcium DAILY/PO (Lipitor) Lisinopril 20 mg 01/09/18 0900 (Prinivil) DAILY/PO Carvedilol 3.125 mg 01/08/18 1000 (Coreg) Q12HR/PO 01/08/18 2206 Heparin Sodium/ 250 ml @ 10 mls/hr 01/08/18 0430 Dextrose TITRATE PRN/IV 01/09/18 0417 Current Medications Medications (Trade) Dose Ordered Sig/Jose Route Start Time Stop Time Status Last Admin (Heparin Inj) 5,000 units UNSCH PRN IV PUSH 01/08/18 10:30 (Heparin Inj) 2,500 units UNSCH PRN IV PUSH 01/08/18 10:30 01/08/18 20:42 Heparin Sodium/ Dextrose 250 ml @ 10 mls/hr TITRATE PRN IV 01/08/18 04:30 01/09/18 04:17 (D50w (Vial) Inj) 50 ml UNSCH PRN IV PUSH 01/08/18 09:15 (Glucagon Inj) 1 mg UNSCH PRN OTHER 01/08/18 09:15 (NovoLOG SUPPLEMENTAL SCALE) 1 ACHS SLIDING SCALE SQ 01/08/18 12:00 (Ecotrin Ec) 325 mg DAILY PO 01/09/18 09:00 (Nitroglycerin 2% Oint) 1 inch Q6H TOP 01/08/18 10:00 01/09/18 04:07 (Nitrostat Sl) 0.4 mg Q5M PRN SL 01/08/18 09:15 (Tylenol) 650 mg Q6H PRN PO 01/08/18 09:15 (Xanax) 0.25 mg Q8H PRN PO 01/08/18 09:15 (Zofran Inj) 4 mg Q6H PRN IV PUSH 01/08/18 09:15 (NS Flush) 2 ml UNSCH PRN IV FLUSH 01/08/18 09:15 (NS Flush) 2 ml BID IV FLUSH 01/08/18 21:00 (Reglan Inj) 5 mg Q6H PRN IV PUSH 01/08/18 09:15 (Ambien) 5 mg HS PRN PO 01/08/18 09:15 (Tylenol) 650 mg Q6H PRN PO 01/08/18 09:15 (Percocet 5-325 Mg) 1 tab Q6H PRN PO 01/08/18 09:15 (Percocet 10-325 Mg) 1 tab Q6H PRN PO 01/08/18 09:15 (Dilaudid Pf Inj) 0.5 mg Q3H PRN IV PUSH 01/08/18 09:30 (Dilaudid Pf Inj) 1 mg Q3H PRN IV PUSH 01/08/18 09:30 (Dilaudid Pf Inj) 1 mg Q3H PRN IV PUSH 01/08/18 09:30 (Narcan Inj) 0.4 mg UNSCH PRN IV PUSH 01/08/18 09:15 (Rosa-Colace) 1 tab BID PO 01/08/18 21:00 (Milk Of Magnesia Liq) 30 ml Q12H PRN PO 01/08/18 09:15 (Senokot) 17.2 mg Q12H PRN PO 01/08/18 09:15 (Dulcolax Supp) 10 mg DAILY PRN RECTAL 01/08/18 09:15 (Lactulose Liq) 30 ml DAILY PRN PO 01/08/18 09:15 (Lipitor) 40 mg DAILY PO 01/09/18 09:00 (Prinivil) 20 mg DAILY PO 01/09/18 09:00 (Coreg) 3.125 mg Q12HR PO 01/08/18 10:00 01/08/18 22:06 Sodium Chloride 1,000 ml @ 100 mls/hr Q10H IV 01/08/18 09:58 01/13/18 09:57 01/09/18 06:19 (Benadryl) 50 mg ELECTRON BEAM PHOTO MASK TECHNICIAN PO 01/08/18 10:00 01/12/18 09:59 01/09/18 06:27 (Valium) 10 mg ELECTRON BEAM PHOTO MASK TECHNICIAN PO 01/08/18 10:00 01/12/18 09:59 01/09/18 06:27 (Versed Inj) 1 mg ELECTRON BEAM PHOTO MASK TECHNICIAN IV PUSH 01/08/18 10:00 01/12/18 09:59 Vital Signs / I&O Vital Signs Date Time Temp Pulse Resp B/P (MAP) Pulse Ox O2 Delivery O2 Flow Rate FiO2 01/09/18 06:26 98.5 65 16 143/82 (102) 99 01/09/18 06:00 64 01/09/18 05:00 62 01/09/18 04:10 65 16 135/73 (93) 98 01/09/18 04:00 62 01/09/18 03:00 69 01/09/18 02:00 62 01/09/18 01:00 60 01/09/18 00:00 60 01/08/18 23:30 64 16 134/67 (89) 99 01/08/18 23:00 85 01/08/18 22:08 98 Nasal Cannula 2.00 01/08/18 22:00 66 01/08/18 21:00 66 01/08/18 20:00 64 01/08/18 19:30 98.7 60 16 146/70 (95) 99 01/08/18 19:00 77 01/08/18 18:31 2.00 01/08/18 18:00 54 01/08/18 17:00 62 01/08/18 16:00 56 01/08/18 15:04 98.5 64 18 136/68 (90) 99 01/08/18 15:00 66 01/08/18 14:00 62 01/08/18 13:00 58 01/08/18 12:25 98.5 61 18 135/78 (97) 99 01/08/18 12:00 64 01/08/18 11:32 01/08/18 09:50 60 18 148/76 (100) 100 Room Air 01/08/18 09:18 99 Nasal Cannula 2.00 I/O 01/08/18 01/08/18 01/08/18 01/09/18 01/09/18 01/09/18 07:00 15:00 23:00 07:00 15:00 23:00 Intake Total 1480 ml 490 ml Output Total 550 ml 600 ml Balance 930 ml -110 ml Intake Oral 480 ml 240 ml IV Total 1000 ml 250 ml Output Urine Total 550 ml 600 ml # Voids 2 # Bowel Movements 1 Physical Exam GENERAL: Well developed, well nourished. No acute distress. HEENT: Jugular venous pressure is normal. CHEST: Lungs clear to auscultation anteriorly. CARDIAC: Regular rate and rhythm without S3, S4, or murmur. ABDOMEN: Soft, nontender, no hepatosplenomegaly. Bowel sounds present. EXTREMITIES: No clubbing, cyanosis, or edema. Laboratory Laboratory Tests Test 01/08/18 09:31 01/08/18 13:44 01/08/18 16:22 01/08/18 19:21 Blood Urea Nitrogen 15 MG/DL Creatinine 1.21 MG/DL Random Glucose 112 MG/DL Total Protein 8.0 GM/DL Albumin 3.4 GM/DL Calcium Level 9.0 MG/DL Alkaline Phosphatase 59 U/L Aspartate Amino Transf (AST/SGOT) 156 U/L Alanine Aminotransferase (ALT/SGPT) 50 U/L Total Bilirubin 0.5 MG/DL Sodium Level 141 MEQ/L Potassium Level 4.0 MEQ/L Chloride Level 108 MEQ/L Carbon Dioxide Level 28.5 MEQ/L Anion Gap 5 MEQ/L Estimat Glomerular Filtration Rate 77 ML/MIN Total Creatine Kinase 970 U/L 877 U/L 878 U/L Creatine Kinase MB 74.1 NG/ML 50.7 NG/ML 44.0 NG/ML Creatine Kinase MB % 7.6 % 5.8 % 5.0 % Troponin I GREATER THAN 40.00 NG/ML 38.60 NG/ML 32.60 NG/ML Activated Partial Thromboplast Time 26.5 SEC 28.0 SEC Triglycerides Level 115 MG/DL Cholesterol Level 159 MG/DL LDL Cholesterol 89 MG/DL HDL Cholesterol 47.2 MG/DL Cholesterol/HDL Ratio 3.36 RATIO Test 01/09/18 02:46 White Blood Count 6.7 TH/MM3 Red Blood Count 4.65 MIL/MM3 Hemoglobin 13.0 GM/DL Hematocrit 38.0 % Mean Corpuscular Volume 81.6 FL Mean Corpuscular Hemoglobin 28.0 PG Mean Corpuscular Hemoglobin Concent 34.3 % Red Cell Distribution Width 15.4 % Platelet Count 124 TH/MM3 Mean Platelet Volume 9.2 FL Neutrophils (%) (Auto) 70.6 % Lymphocytes (%) (Auto) 16.8 % Monocytes (%) (Auto) 9.5 % Eosinophils (%) (Auto) 2.5 % Basophils (%) (Auto) 0.6 % Neutrophils # (Auto) 4.8 TH/MM3 Lymphocytes # (Auto) 1.1 TH/MM3 Monocytes # (Auto) 0.6 TH/MM3 Eosinophils # (Auto) 0.2 TH/MM3 Basophils # (Auto) 0.0 TH/MM3 CBC Comment DIFF FINAL Differential Comment Activated Partial Thromboplast Time 39.6 SEC Blood Urea Nitrogen 13 MG/DL Creatinine 1.20 MG/DL Random Glucose 118 MG/DL Total Protein 7.0 GM/DL Albumin 3.1 GM/DL Calcium Level 8.6 MG/DL Phosphorus Level 2.9 MG/DL Magnesium Level 1.7 MG/DL Alkaline Phosphatase 48 U/L Aspartate Amino Transf (AST/SGOT) 134 U/L Alanine Aminotransferase (ALT/SGPT) 39 U/L Total Bilirubin 0.5 MG/DL Sodium Level 143 MEQ/L Potassium Level 4.0 MEQ/L Chloride Level 109 MEQ/L Carbon Dioxide Level 28.2 MEQ/L Anion Gap 6 MEQ/L Estimat Glomerular Filtration Rate 77 ML/MIN Free Thyroxine 0.98 NG/DL Thyroid Stimulating Hormone 3rd Gen 0.896 uIU/ML Assessment and Plan Problem List: (1) NSTEMI (non-ST elevated myocardial infarction) ICD Codes: I21.4 - Non-ST elevation (NSTEMI) myocardial infarction Status: Acute Plan: Stable overnight. Cardiac enzymes c/w acute non-STEMI. Cath today shows severe RCA and LAD disease. Distal RCA disease not amenable to PCI. EF 60%. REC CABG, grafts to LAD, PDA, PL continue beta keila, PADMINI-I, ASA (2) Hypertension ICD Codes: I10 - Essential (primary) hypertension Status: Chronic Plan: Mildly hypertensive. Rec optimize medical regimen. (3) Hyperlipidemia ICD Codes: E78.5 - Hyperlipidemia, unspecified Status: Chronic Plan: Suboptimal LDL level. Desirable <<< 70. Continue atorvastatin at higher dosing. Code Status full code Discussed Condition With patient and his Problem Qualifiers (1) Hypertension: Qualified Codes: I10 - Essential (primary) hypertension (2) Hyperlipidemia: Qualified Codes: E78.00 - Pure hypercholesterolemia, unspecified Yefri Guillen MD Jan 09, 2018 08:11
--- NOTE | 2018-01-09 08:11 | CATHPROC ---
CLIPPATE HIS Report Study Information Study Number Admission Scheduled Start Study Start [id number] Jan 08 2018 7:54AM 01/08/2018 Jan 09 2018 6:50AM [facility] Cardiac Catheterization Admit Source Facility Department Emergency department [facility] - [facility] Physician and Clinical Staff Initial Yefri Jeter Apprentice Ailyn Chávez,DEON Apprentice Rad Deshpande RN Recorder Marcela Solares,RT(R) Scrub Marylin Andre,DELIVERY DEPARTMENT SUPERVISOR TECH2 Procedures Performed Procedure Location (Site) Vessel Name Angiogram LV LV Ventricle Coronary Angiograms LCA Left Coronary Coronary Angiograms RCA Right Coronary L Heart Cath Equipment Time Professor Of Engineering Description Size Mfg Part Number Used/Scraped TRANSDUCER, TRUWAVE [id number] 06:53 LY GONZALEZ * Used W/STOCKCOCK *[id number] *[id number] *[id number] [id number] *[id number] 06:53 MALLINCKRODT SYRINGE, ANGIOMAT 150ML 150ML *[id number] Used 2S [employer] CONCEPT DRAPE, RADIAL FEMORAL FULL 06:53 * [id number] *[id number] Used DEVELOPMENT BODY [id number] 06:53 [employer] PACK, CCL CUSTOM * Used *[id number] 06:53 [employer] SUPPORT, ARTERIAL ADULT [id number] *[id number] Used [id number] 06:53 griddig PACER PEN, SKIN DUAL W/ RULER * Used *[id number] BAND, RADIAL COMPRESSION TR [id number] 08:00 [employer] MEDICAL 29CM Used LARGE 29 *[id number] SHEATH, FR6 RADIAL PRELUDE 06:53 [employer] FR 6 [id number] Used EASE 11CM [id number] 07:55 [employer] MEDICAL WIRE, EXCHANGE 260CM .035 260CM Used *[id number] 06:53 [employer] MEDICAL WIRE, EXCHANGE 260CM 3MMJ 260CM Used *[id number] 06:53 NAMIC MANIFOLD, 4 PORT * Used *[id number] 07:56 NAMIC TUBING, HIGH PRESSURE 48" 48" Used *[id number] 06:53 [employer] OMNIPAQUE, 350 MG, 150ML 150ML [id number] Used 07:57 [employer] OMNIPAQUE, 350 MG, 50ML 50ML [id number] Used [id number] 06:53 [employer] MED[employer] BLANKET,WARM AIR CCL * Used *[id number] CATHETER, FR5 OPTITORQUE [id number] 07:30 Birthday Gorilla FR 5 Used RADIAL TIG 4.0 *[id number] History: Current Medications Medication Dosage/Unit Route Frequency Last Date/Time Taken Statins (any) Beta Freedom Glucophage History: Allergies Allergy Reaction morphine Bradycardia History: Risk Factors Family History of Hypertension Dyslipidemia Previous CT Previous Heart Failure Premature CAD Yes Yes No No No Prior Valve Prior PCI Prior CABG Surgery No No No Cerebrovascular Peripheral Artery Chronic Lung On Dialysis Diabetes Diabetes Therapy Disease Disease Disease No No No No Yes Oral History: Symptoms/Diagnosis Selection Items Chest pain History: Stress Tests Stress or Imaging Studies Performed No Labs Hgb (g/dl) Hct (%) WBC (l/cumm) Platelets (thousands) 11.60-17.00 35.00-51.00 4.00-11.00 150.00-450.00 13.0 38 6.7 124 Glucose (mg/dl) BUN (mg/dl) Creatinine (mg/dl) BUN:Creatinine (1:x) 74.00-106.00 7.00-18.00 0.50-1.30 10.00-20.00 118 13 1.2 10.8 Na (meq/l) K (meq/l) 136.00-145.00 3.50-5.10 143 4 INR (PTT:PT) 0.90-1.10 1.1 Troponin I (ng/ml) CPK (u/l) CPK-MB (ng/ML) 0.02-0.05 26.00-308.00 0.50-3.60 32.6 878 44.0 Medication Medication Total Dose (Bolus/Oral) Medication Total Dosage/Unit 1% XYLOCAINE 10 mL FENTANYL 25 mcg RADIAL COCKTAIL 5 mL (Bolus) VERSED 2 mg Medications (Bolus/Oral) Medication Time Given Dosage/Unit Administered By Reason 1% XYLOCAINE 01/09/2018 7:39:21 AM 10 mL Yefri Guillen 10 mL 1% XYLOCAINE given in lab by Yefri Guillen in Right Radial via Subcutaneous. Ordered by Marlene Guillen. RADIAL COCKTAIL 01/09/2018 7:41:57 AM 5 mL (Bolus) Yefri Guillen 5 mL (Bolus) RADIAL COCKTAIL given in lab by Yefri Guillen via Radial. Using [Solution Name]. Ordered by Yefri Guillen. 200 nitro, 2500 heparin, 2.5 verapamil VERSED 01/09/2018 7:44:32 AM 2 mg Charlee, Rad 2 mg VERSED given in lab by Rad Deshpande RN in Left Antecubital via Peripheral IV. Ordered by Yefri Guillen. FENTANYL 01/09/2018 7:46:09 AM 25 mcg Charlee, Rad 25 mcg FENTANYL given in lab by Rad Deshpande RN in Left Antecubital via Peripheral IV. Ordered by Yefri Lopez. Medication (Drip) Medication Time Given Dosage/Unit Concentration/Unit Diluent (ml) Solution HEPARIN DRIP STOPPED 01/09/2018 6:55:00 AM 12 units/hr 0 12 units/hr HEPARIN DRIP STOPPED given in lab by Ailyn Chávez RN via Peripheral IV. Pump/Drip Brayden w = 0 ml/hr using [Solution Name]. IV Solutions 01/09/2018 7:06:26 AM 50 mL (IV) NaCl .9 IV Solutions given in lab by Ailyn Chávez RN in Left Antecubital via Peripheral IV. Pump/Drip Brayden w using NaCl .9. Initial Case Assessment Cardiovascular HR Rhythm NIBP Chest Pain 70 SR 157/98 0 Skin color Skin Normal Warm Dry Circulatory - Right Pulses Dorsalis Pedis Femoral Radial 2 2 2 Scale (0,1,2,3,4,d) Circulatory - Left Pulses Dorsalis Pedis Femoral Radial 2 2 Scale (0,1,2,3,4,d) Neurological State Oriented to time-place- Alert Moves all extremities person Respiration - General Respiration Rate SpO2 (%) (B/min) 9 99 Chronological Log Time Study Chronological Log 12 units/hr HEPARIN DRIP STOPPED given in lab by Ailyn Chávez RN via Peripheral IV. Pump/ Drip Flow = 0 ml/hr 6:55:00 using [Solution Name]. 7:06:09 Patient arrived via Bed. 7:06:10 Patient Name, D.O.B, / Armband Verified By R.N. 7:06:10 Consent signed by the physician and the patient and verified by the [facility] staff. 7:06:10 Pre-op and post- op instructions given; patient acknowledges understanding of instructions. 7:06:12 Verbal Stimulation=2 Physical Stimulation=2 Airway=2 Respiration=2 TOTAL=8. (0=absent, 1=aden ited, 2=present) 7:06:15 Presedation assessment performed by [facility] RN. 7:06:16 Allens test performed on the right radial and ulnar artery. 7:06:18 Patient has been NPO for More than 6Hrs. 7:06:18 Skin Breakdown- none per pt 7:06:19 Patient Warmer Placed on the Table. 7::20 Willie Prominences Protected 7:: A # 18 IV was noted in the Antecubital (left). Grade = 0 7:06: A # 20 IV was noted in the Antecubital (right). Grade = 0 7:: IV Solutions given in lab by Ailyn Chávez RN in Left Antecubital via Peripheral IV. Pump /Drip Flow using NaCl .9. 7:06:27 History and physical on the chart or being dictated. Assessment: Initial Case, HR=70 BPM, Rhythm=SR, WUWC=467/98 mmhg, Chest Pain=0, Color=Normal, Sk in = Warm, Dry Right Pulses: Enrike Ped=2, Femoral=2, Radial=2 7:06:28 Left Pulses: Enrike Ped=2, Femoral=2 Neurological: State=Alert, Ox3, STEWART Respiration: Resp=9 B/min, SpO2=99 % Vitals capture started with the following parameters, Patient=Adult, Interval=5 min, Initial Pre cylsp=033 mmHg, 7:14:04 Deflation Rate=5 mmHg, Cuff placed on Unknown 7:15:07 Reference ECG taken 7:15:23 HR=72 bpm, YVXE=023/98 mmhg, SpO2=99.0 %, Resp=9 B/min 7:19:28 Right Radial and right groin prepped with 2% chlorhexidine, and draped after a 3 min. waitin g time. 7:19:41 HR=74 bpm, HYIZ=669/97 mmhg, SpO2=99.0 %, Resp=17 B/min 7:24:44 HR=70 bpm, BMQX=359/92 mmhg, SpO2=97.0 %, Resp=18 B/min, Pain=0, Anayeli=10, Lin=2 7:26:17 Pressure channel 1 zeroed. 7:26:28 MD paged 7:29:51 HR=72 bpm, JWYV=736/58 mmhg, SpO2=98.0 %, Resp=17 B/min, Pain=0, Anayeli=10, Lin=2 7:34:42 HR=73 bpm, JLWY=334/97 mmhg, SpO2=96.0 %, Resp=12 B/min, Pain=0, Anayeli=10, Lin=2 Time Out. Correct patient, correct procedure, correct physician, power injector loaded with cont rast with surgical team 7:37:48 present. Time Out Concurred by MD and individual staff in procedure. 7:38:49 Case Start 7:39:21 10 mL 1% XYLOCAINE given in lab by Yefri Guillen in Right Radial via Subcutaneous. Ordered by Yefri Guillen. 7:39:41 HR=72 bpm, EDZG=363/97 mmhg, SpO2=98.0 %, Resp=17 B/min, Pain=0, Anayeli=10, Lin=2 7:41:20 Access site was Radial Artery. A SHEATH, FR6 RADIAL PRELUDE EASE 11CM FR 6 was advanced into the Radial (right) using the Modif ied Seldinger 7:41:32 technique. 5 mL (Bolus) RADIAL COCKTAIL given in lab by Yefri Guillen via Radial. Using [Solution Name]. Ord ered by Mindy, 7:41:57 Yefri. 200 nitro, 2500 heparin, 2.5 verapamil A CATHETER, FR5 OPTITORQUE RADIAL TIG 4.0 FR 5 was advanced over a wire. OMNIPAQUE, 350 MG, 150M L 150ML 7:42:32 was used for injections. Recorded Pressure: Ao, HR=81, Condition=Condition 1 7:43:30 (Aorta) Ao 115/74/92 7:43:45 The LCA was injected and visualized at various angles. OMNIPAQUE, 350 MG, 150ML 150ML use d. 7:44:32 2 mg VERSED given in lab by Rad Deshpande, RN in Left Antecubital via Peripheral IV. Ordere d by Yefri Guillen. 7:44:44 HR=83 bpm, CQGC=224/99 mmhg, SpO2=95 %, Resp=19 B/min, Pain=0, Anayeli=10, Lin=2 7:46:09 25 mcg FENTANYL given in lab by Rad Deshpande, RN in Left Antecubital via Peripheral IV. Or dered by Yefri Guillen. After removing the current catheter a JR 5.0 INFINITI CATHETER FR 6 was advanced over a WIRE, EXCHANGE 260CM 7:46:59 3MMJ 260CM. 7:49:41 HR=80 bpm, VJBJ=768/93 mmhg, SpO2=92.0 %, Resp=18 B/min 7:50:32 The RCA was injected and visualized at various angles. OMNIPAQUE, 350 MG, 150ML 150ML use d. After removing the current catheter a PIGTAIL STR INFINITI CATHETER FR 6 was advanced over a W MARK, EXCHANGE 7:54:04 260CM 3MMJ 260CM. 7:54:44 HR=82 bpm, CBWG=092/103 mmhg, SpO2=97.0 %, Resp=20 B/min Recorded Pressure: LV, HR=77, Condition=Condition 1 7:54:51 (Left Ventricle) LV 138/11/21 7:57:00 The LV was injected at 12 cc/sec for a total of 42. OMNIPAQUE, 350 MG, 50ML 50ML used. Recorded Pressure: LV, Ao, HR=77, Condition=Condition 1 7:57:23 (Left Ventricle) LV 144/11/20, (Aorta) Ao 140/78/107 7:57:46 Catheter was removed 7:58:03 Case End 7:58:43 No case complications noted. 7:58:44 Cine recording checked. 7:58:51 Bedside Report will be given. 7:58:59 A Left Heart Cath was performed. 7:59:43 HR=76 bpm, NNGM=348/97 mmhg, SpO2=97.0 %, Resp=13 B/min Radial Compression Device Used. 15 mLs of air placed in BAND, RADIAL COMPRESSION TR LARGE 29 2 9CM. Affected 7:59:50 hand 97 % O2 saturation. 8:04:42 HR=73 bpm, RBDM=798/95 mmhg, SpO2=98.0 %, Resp=11 B/min 8:08:21 Vitals capture stopped. 8:10:45 Patient moved to stretcher End Study - Contrast Media Used In Study Contrast Total Opened (mL) Total Used (mL) Total Wasted (mL) Omnipaque 85 85 0 End Study - Maximum Contrast Load Max Contrast Load (mL) 675.0 End Study - Radiation Exposure Fluoro Time (minutes) 5.2 End Study - Patient Disposition Complications Transferred To Interventional Outcome No Telemetry Bed No attempt made
[2018-01-09] MEDS ORDERED: MISC INFORMATION XX ONE (08:15)
--- NOTE | 2018-01-09 08:18 | MA ---
cc: Yefri Guillen MD DATE: 01/09/2018 PROCEDURE: Left heart catheterization, selective coronary angiography, left ventriculography. PROCEDURE NOTES: The patient was brought to the cardiac catheterization laboratory in a fasting state after having signed informed consent. The right radial region was prepped and draped as per policy and anesthetized with 1% lidocaine. Arterial access was obtained via the right radial artery and a 6-Bermudian sheath placed. Coronary arteriography was performed using 6-Bermudian Ollie right 5.0 to engage the right coronary and a [place] catheter to engage the left main. Left ventriculography was done using a standard 6-Bermudian pigtail. There were no apparent, immediate complications. A radial artery compression band was applied to the right wrist at the end of the case to achieve good hemostasis. HEMODYNAMIC DATA: Left ventricle 144 with an end-diastolic pressure of 11. Aorta 140/78 with a mean of 107. There was no significant transvalvular aortic gradient on pullback of the pigtail catheter. CORONARY ARTERIOGRAPHY: The left main has 30% mid to distal disease. The left anterior descending is a large vessel giving rise to 2 medium sized diagonals which overall have minimal luminal irregularities. In the proximal LAD, there is 90% stenosis. The mid to distal LAD has minimal luminal irregularities. The left circumflex is a medium-sized vessel giving rise to a fairly large obtuse marginal. Just after the takeoff of this obtuse marginal, the left circumflex has 40% stenosis. The obtuse marginal has minimal luminal irregularities. The right coronary artery is a large, dominant vessel with diffuse proximal to mid disease. There is up to 95% stenosis very proximally. In the distal coronary, right before the takeoff of the posterior descending artery, there is 90 to 95% stenosis. In the very distal right coronary, there is 85% stenosis. Minimal left to right collaterals are evident. The posterior descending artery is a large caliber vessel with 25% ostial stenosis. LEFT VENTRICULOGRAPHY: Contrast injection of the left ventricle reveals no segmental wall motion abnormalities. Ejection fraction is estimated at 60%. CONCLUSIONS: 1. Severe 2-vessel coronary artery disease. 2. Right dominant system. 3. Normal left ventricular function with estimated ejection fraction of 60%. DISCUSSION: The patient's distal right coronary disease would not be readily amenable to percutaneous coronary intervention. The patient will be referred for bypass surgery. Bypass grafts could be placed to the LAD, posterior descending artery, and posterolateral branch of the right coronary. MD TRACY Kinsey/PARISA , 08:05 AM , 08:17 AM BRUNILDA
[2018-01-09] MEDS ORDERED: IOHEXOL 350 MG/ML 100 ML BTL (for Cath Lab) OTHER ONE (08:31)
[2018-01-09] MEDS: DOCUSATE SODIUM 50 MG/SENNA 8.6 MG TAB PO SCH ×2 (09:00→21:00)
[2018-01-09] MEDS ORDERED: LISINOPRIL 20 MG TAB PO SCH (09:00)
[2018-01-09] MEDS: ATORVASTATIN 40 MG TAB PO SCH (09:55)
[2018-01-09] MEDS: ASPIRIN EC 325 MG TABEC PO SCH (09:55)
[2018-01-09] MEDS: CARVEDILOL 3.125 MG TAB PO SCH ×2 (09:55→21:45)
[2018-01-09] MEDS: SODIUM CHLORIDE 0.9% FLUSH 10 ML FLUSH IV FLUSH SCH ×2 (09:56→21:45)
[2018-01-09] MEDS ORDERED: INSULIN REGULAR (IV INFUSION) 100 UNITS in SODIUM CHLORIDE 0.9% INJ 99 ML IV PRN (12:00)
[2018-01-09] MEDS ORDERED: DEXTROSE 50% IN WATER 50 ML VIAL(D50) IV PUSH PRN (12:00)
[2018-01-09] MEDS ORDERED: ceFAZolin 2 GM PREMIX 50 ML IV SCH (12:00)
[2018-01-09] MEDS ORDERED: CEFAZOLIN INJ 500 MG in SODIUM CHLORIDE 0.9% IRR BTL 500 ML IRRIGATION SCH (12:00)
[2018-01-09] MEDS ORDERED: METOPROLOL TARTRATE 25 MG TAB PO SCH (12:00)
[2018-01-09] MEDS ORDERED: SODIUM CHLORIDE 0.9% FLUSH 10 ML FLUSH IV FLUSH PRN (12:00)
[2018-01-09] MEDS ORDERED: PAPAVERINE INJ 60 MG, NITROGLYCERIN INJ 100 MCG, VERAPAMIL INJ 100 MG in SODIUM CHLORID... IRRIGATION SCH (12:00)
[2018-01-09] MEDS ORDERED: CHLORHEXIDINE GLUCONATE 4% SOLN 120 ML BTL TOPICAL SCH (12:00)
--- NOTE | 2018-01-09 12:11 | PD.CAR.PN ---
CVT Progress Note Subjective/Hospital Course: pt seen and evaluated, full consult dictated eval timing for CABG pt will need HEME consult to eval for strong family hx of Factor 9 deficiency sts data discussed with pt RISK SCORES About the STS Risk Calculator Procedure: CAB Only Risk of Mortality: 0.5% Morbidity or Mortality: 13.122% Long Length of Stay: 3.852% Short Length of Stay: 53.151% Permanent Stroke: 0.362% Prolonged Ventilation: 8.711% DSW Infection: 0.511% Renal Failure: 4.028% Reoperation: 3.813% Objective: Vital Signs Date Time Temp Pulse Resp B/P (MAP) Pulse Ox O2 Delivery O2 Flow Rate FiO2 01/09/18 11:45 68 16 143/82 (102) 97 01/09/18 08:33 98.2 68 16 151/89 (109) 97 01/09/18 07:00 100 01/09/18 06:26 98.5 65 16 143/82 (102) 99 01/09/18 06:00 64 01/09/18 05:00 62 01/09/18 04:10 65 16 135/73 (93) 98 01/09/18 04:00 62 01/09/18 03:00 69 01/09/18 02:00 62 01/09/18 01:00 60 01/09/18 00:00 60 01/08/18 23:30 64 16 134/67 (89) 99 01/08/18 23:00 85 01/08/18 22:08 98 Nasal Cannula 2.00 01/08/18 22:00 66 01/08/18 21:00 66 01/08/18 20:00 64 01/08/18 19:30 98.7 60 16 146/70 (95) 99 01/08/18 19:00 77 01/08/18 18:31 2.00 01/08/18 18:00 54 01/08/18 17:00 62 01/08/18 16:00 56 01/08/18 15:04 98.5 64 18 136/68 (90) 99 01/08/18 15:00 66 01/08/18 14:00 62 01/08/18 13:00 58 01/08/18 12:25 98.5 61 18 135/78 (97) 99 Labs: Laboratory Tests Test 01/09/18 02:46 01/09/18 10:24 White Blood Count 6.7 TH/MM3 (4.0-11.0) Red Blood Count 4.65 MIL/MM3 (4.50-5.90) Hemoglobin 13.0 GM/DL (13.0-17.0) Hematocrit 38.0 % (39.0-51.0) Mean Corpuscular Volume 81.6 FL (80.0-100.0) Mean Corpuscular Hemoglobin 28.0 PG (27.0-34.0) Mean Corpuscular Hemoglobin Concent 34.3 % (32.0-36.0) Red Cell Distribution Width 15.4 % (11.6-17.2) Platelet Count 124 TH/MM3 (150-450) Mean Platelet Volume 9.2 FL (7.0-11.0) Neutrophils (%) (Auto) 70.6 % (16.0-70.0) Lymphocytes (%) (Auto) 16.8 % (9.0-44.0) Monocytes (%) (Auto) 9.5 % (0.0-8.0) Eosinophils (%) (Auto) 2.5 % (0.0-4.0) Basophils (%) (Auto) 0.6 % (0.0-2.0) Neutrophils # (Auto) 4.8 TH/MM3 (1.8-7.7) Lymphocytes # (Auto) 1.1 TH/MM3 (1.0-4.8) Monocytes # (Auto) 0.6 TH/MM3 (0-0.9) Eosinophils # (Auto) 0.2 TH/MM3 (0-0.4) Basophils # (Auto) 0.0 TH/MM3 (0-0.2) CBC Comment DIFF FINAL Differential Comment Activated Partial Thromboplast Time 39.6 SEC (24.3-30.1) 24.7 SEC (24.3-30.1) Blood Urea Nitrogen 13 MG/DL (7-18) Creatinine 1.20 MG/DL (0.60-1.30) Random Glucose 118 MG/DL (74-106) Total Protein 7.0 GM/DL (6.4-8.2) Albumin 3.1 GM/DL (3.4-5.0) Calcium Level 8.6 MG/DL (8.5-10.1) Phosphorus Level 2.9 MG/DL (2.5-4.9) Magnesium Level 1.7 MG/DL (1.5-2.5) Alkaline Phosphatase 48 U/L (45-117) Aspartate Amino Transf (AST/SGOT) 134 U/L (15-37) Alanine Aminotransferase (ALT/SGPT) 39 U/L (12-78) Total Bilirubin 0.5 MG/DL (0.2-1.0) Sodium Level 143 MEQ/L (136-145) Potassium Level 4.0 MEQ/L (3.5-5.1) Chloride Level 109 MEQ/L (98-107) Carbon Dioxide Level 28.2 MEQ/L (21.0-32.0) Anion Gap 6 MEQ/L (5-15) Estimat Glomerular Filtration Rate 77 ML/MIN (>89) Free Thyroxine 0.98 NG/DL (0.76-1.46) Thyroid Stimulating Hormone 3rd Gen 0.896 uIU/ML (0.358-3.740) Result Diagram: 01/09/18 0246 01/09/18 0246 (1) NSTEMI (non-ST elevated myocardial infarction) (2) Hypertension (3) Hyperlipidemia Problem Qualifiers (1) Hypertension: Qualified Codes: I10 - Essential (primary) hypertension (2) Hyperlipidemia: Qualified Codes: E78.00 - Pure hypercholesterolemia, unspecified Betty Sloan Jan 09, 2018 12:11
--- NOTE | 2018-01-09 12:34 | MB ---
cc: Betty Sloan Cary H MD DATE: 01/09/2018 HISTORY OF PRESENT ILLNESS: A 52-year-old male admitted 01/08/2018 at 0700. Apparently woke up earlier that morning with chest pressure associated with some diaphoresis, presented to the emergency room. He did receive some aspirin and sublingual nitro with some relief. Chest pain occurred again. He was given some morphine and had an allergic reaction to the drug. He says he has had some chest discomfort over the past year, but with much less intensity. Denies any palpitations. No shortness of breath, no paroxysmal nocturnal dyspnea. He was found to have an acute non-ST segment MN, underwent cardiac catheterization this morning which showed an ejection fraction of 60%, left main disease of 30%, the proximal LAD 90%, circumflex was 40% and the RCA 95%. We were consulted to evaluate for coronary artery bypass grafting. PAST MEDICAL HISTORY: Includes hyperlipidemia, hypertension, diabetes mellitus on oral medication. 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 PAST SURGICAL HISTORY: The patient has had no past surgical history. ALLERGIES: HE HAS ALLERGIES TO MORPHINE. HOME MEDICATIONS: Include: 1. Metformin. 1. Atorvastatin. 2. Lisinopril. FAMILY HISTORY: The father has factor IX deficiency. Mother is a diabetic with hypertension. SOCIAL HISTORY: , 2 children, works at a [employer] facility, works out in the yard, works out at a gym, fairly active. REVIEW OF SYSTEMS: As above in the HPI, other 12 systems unremarkable. PHYSICAL EXAMINATION: VITAL SIGNS: Blood pressure 150/80, heart rate is 68, temperature 98.2. GENERAL: The patient is awake and alert in no acute distress. HEENT: Head is normocephalic, atraumatic. Pupils equal and reactive. Oral mucosa pink and moist. NECK: Supple. No JVD. CARDIOVASCULAR: Heart sounds S1, S2. Regular rate and rhythm. No rubs, murmurs or gallops. LUNGS: Clear to auscultation. No wheezes, rales or rhonchi. ABDOMEN: Obese, soft, nontender. No masses or organomegaly. EXTREMITIES: No cyanosis, clubbing, or edema. LABORATORY DATA: Shows hemoglobin 13, hematocrit 38, white cell count of 6.7, platelet count of 124. Sodium 143, potassium 4.0, BUN of 13, creatinine 1.20. Troponin peaked at 40. His triglycerides are 115, cholesterol 159, LDL 89, HDL of 47. TSH is 0.89. INR 1.1. Chest x-ray is unremarkable. IMPRESSION: This is a 52-year-old male with 2-vessel coronary disease that has an STS risk score of 0.5%. The cardiac films will be evaluated by Dr. Kelsea Zapien. PLAN: Timing for surgery will be then evaluated. He will also have a hematology consult with a strong family history on his father's side of factor IX deficiency to clear for surgery. RAMONA Johnson MD JRDalia/DL , 12:16 PM , 12:32 PM
--- NOTE | 2018-01-09 13:40 | RADRPT ---
EXAM DATE/TIME: 01/09/2018 13:06 [facility] COMPARISON: No previous studies available for comparison. INDICATIONS : Evaluate for communicable diseases, pneumonia, pneumothorax. MEDICAL HISTORY : Hypertension. SURGICAL HISTORY : None. ENCOUNTER: Initial ACUITY: 1 day PAIN SCORE: 0/10 LOCATION: Bilateral chest FINDINGS: PA and lateral views of the chest demonstrate the lungs to be symmetrically aerated without evidence of mass, infiltrate or effusion. The cardiomediastinal contours are unremarkable. Osseous structure s are intact. CONCLUSION: No acute disease. Renard Flores MD FACR on January 09, 2018 at 13:38 Board Certified Radiologist. This report was verified electronically.
[2018-01-09 15:57] LABS: HEMOGLOBIN A1C 5.8 % (4.3-6.0)
--- NOTE | 2018-01-09 16:32 | RADRPT ---
EXAM DATE/TIME: 01/09/2018 15:34 [facility] COMPARISON: No previous studies available for comparison. INDICATIONS : Preop cardiac surgery. MEDICAL HISTORY : Hypercholesterol. Hypertension. Diabetes. SURGICAL HISTORY : None. ENCOUNTER: Initial ACUITY: 1 day PAIN SCORE: 0/10 LOCATION: Bilateral leg. TECHNIQUE: Venous ultrasound of the left and right leg was performed from the inguinal ligament to the proximal calf. Real-time, color Doppler and spectral tracing, compression and augmentation techniques were us ed. FINDINGS: RIGHT LEG: There is normal compressibility of the deep venous system from the inguinal region to the proximal ca lf. No echogenic clot is seen in the lumen of the common femoral, femoral, popliteal, and posterior tibial veins. There is a normal response of the venous system to proximal and distal augmentation an d respiration. LEFT LEG: There is normal compressibility of the deep venous system from the inguinal region to the proximal ca lf. No echogenic clot is seen in the lumen of the common femoral, femoral, popliteal, and posterior tibial veins. There is a normal response of the venous system to proximal and distal augmentation an d respiration. CONCLUSION: Negative exam. No sonographic or Doppler findings of deep venous thrombosis. Skyler Ha MD on January 09, 2018 at 16:29 Board Certified Radiologist. This report was verified electronically.
--- NOTE | 2018-01-09 16:33 | RADRPT ---
EXAM DATE/TIME: 01/09/2018 15:53 [facility] COMPARISON: No previous studies available for comparison. INDICATIONS : Preop cardiac surgery. MEDICAL HISTORY : Hypercholesterol. Hypertension. Diabetes. SURGICAL HISTORY : None. ENCOUNTER: Initial ACUITY: 1 day PAIN SCORE: 0/10 LOCATION: Bilateral leg. GREATER SAPHENOUS VEIN THIGH: PROXIMAL: Right 7 mm Left 8 mm MID: Right 5 mm Left 5 mm DISTAL: Right 3 mm Left 3 mm CALF: PROXIMAL: Right 3 mm Left 2 mm MID: Right 2 mm Left 2 mm DISTAL: Right 2 mm Left 2 mm FINDINGS: The venous system of the lower extremities are patent by color Doppler imaging. Measurements of the leg veins (in mm) are listed above. CONCLUSION: Greater saphenous veins are patent throughout bilaterally. Measurements as above. Skyler Ha MD on January 09, 2018 at 16:31 Board Certified Radiologist. This report was verified electronically.
--- NOTE | 2018-01-09 16:34 | RADRPT ---
EXAM DATE/TIME: 01/09/2018 14:58 [facility] COMPARISON: No previous studies available for comparison. INDICATIONS : Preop cardiac surgery. MEDICAL HISTORY : Hypercholesterol. Hypertension. Diabetes. SURGICAL HISTORY : None. ENCOUNTER: Initial ACUITY: 1 day PAIN SCORE: 0/10 LOCATION: Bilateral neck PEAK SYSTOLIC VELOCITIES (cm/sec): ICA/CCA RATIO: Right: 0.7 Left: 0.6 ICA: Right: 72.5 Left: 67.2 CCA: Right: 97.8 Left: 108.2 ECA: Right: 108.1 Left: 157.1 VERTEBRAL: Right: 57.0 antegrade Left: 33.9 antegrade Elevated flow velocities and ICA/CCA ratios have been found to correlate with increased degrees of vessel stenosis, calculated as percentage of diameter relative to a normal segment of distal ICA/CCA FINDINGS: RIGHT CAROTID: No significant stenosis is visualized. The waveforms are within normal limits. LEFT CAROTID: No significant stenosis is visualized. The waveforms are within normal limits. VERTEBRAL ARTERIES: Antegrade flow is seen in both vertebral arteries. MISCELLANEOUS: None. CONCLUSION: No hemodynamically significant stenosis in either carotid artery. Christopher Almanza MD on January 09, 2018 at 16:32 Board Certified Radiologist. This report was verified electronically.
[2018-01-09 16:43] LABS: INTERNATIONAL NORMALIZED RATIO 1.1 RATIO; PROTHROMBIN TIME - PATIENT 11.4 SEC (9.8-11.6)
--- NOTE | 2018-01-09 17:11 | EKG ---
Date Performed: 01/08/2018 Time Performed: 16:28:24 PTAGE: 52 years EKG: Sinus bradycardia with interpolated PVC(s). Since the PREVIOUS TRACING , no significant change noted Normal ECG except for rate PREVIOUS TRACIN 01/08/2018 09.58 DOCTOR: Fredy Modi Interpretating Date/Time 01/09/2018 17:09:53
--- NOTE | 2018-01-09 19:31 | ECHRPT ---
Indication: Chest pain CONCLUSIONS The left ventricular systolic function is low normal with an estimated ejection fraction in the rang e of 50- 55%. Mild concentric left ventricular hypertrophy. Mszgl-xs-gkyb mitral valve regurgitation. Trace aortic valve regurgitation. Trivial pulmonary valve regurgitation. Mildly dilated proximal ascending aorta (4.2 cm). BP: 143 / 82 HR: 65 Rhythm: Sinus MEASUREMENTS (Male / Female) Normal Values Technical Quality:Fair 2D ECHO LV Diastolic Diameter PLAX 6.3 cm 4.2 - 5.9 / 3.9 - 5.3 cm LV Systolic Diameter PLAX 4.6 cm IVS Diastolic Thickness 1.3 cm 0.6 - 1.0 / 0.6 - 0.9 cm LVPW Diastolic Thickness 1.3 cm 0.6 - 1.0 / 0.6 - 0.9 cm LV Relative Wall Thickness 0.4 RV Internal Dim ED PLAX 3.6 cm LVOT Diameter 2.2 cm LA Systolic Diameter LX 4.5 cm 3.0 - 4.0 / 2.7 - 3.8 cm M-MODE Aortic Root Diameter MM 3.3 cm LA Systolic Diameter MM 4.9 cm LA Ao Ratio MM 1.5 AV Cusp Separation MM 2.5 cm DOPPLER AV Peak Velocity 165.0 cm/s AV Peak Gradient 10.9 mmHg LVOT Peak Velocity 142.0 cm/s LVOT Peak Gradient 8.1 mmHg AV Area Cont Eq pk 3.3 cm MV Area PHT 3.7 cm Mitral E Point Velocity 88.4 cm/s Mitral A Point Velocity 66.1 cm/s Mitral E to A Ratio 1.3 FINDINGS LEFT VENTRICLE The left ventricular systolic function is low normal with an estimated ejection fraction in the rang e of 50- 55%. Mild concentric left ventricular hypertrophy. Mildly dilated left ventricle. RIGHT VENTRICLE Normal right ventricular size and systolic function. LEFT ATRIUM The left atrial size is sxks-ua-amjzytbfuw dilated. RIGHT ATRIUM The right atrial size is normal. ATRIAL SEPTUM Normal atrial septal thickness AORTA Mildly dilated proximal ascending aorta (4.2 cm) MITRAL VALVE Structurally normal mitral valve. Wvugc-ge-sjhq mitral valve regurgitation. No mitral valve stenosis. AORTIC VALVE Trileaflet aortic valve. Trace aortic valve regurgitation. No aortic valve stenosis. TRICUSPID VALVE Structurally normal tricuspid valve. No tricuspid valve stenosis or regurgitation. PULMONARY VALVE Trivial pulmonary valve regurgitation. VESSELS The inferior vena cava is normal in size. PERICARDIUM No pericardial effusion. Abebe Maldonado DO (Electronically Signed) Final Date:09 January 2018 19:30 Amended: 09 January 2018 20:00
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
--- NOTE | 2018-01-09 20:32 | HHI.PR ---
Subjective Remarks 52-year-old male who presented with chest pain and was found to have extensive RCA and LAD vessel disease. This level of occlusion will require him to undergo open heart surgery. He had a few questions about recovery time today. Objective Vitals Vital Signs Date Time Temp Pulse Resp B/P (MAP) Pulse Ox O2 Delivery O2 Flow Rate FiO2 01/09/18 18:00 78 01/09/18 17:00 64 01/09/18 16:00 72 01/09/18 15:45 99.6 80 16 142/79 (100) 100 01/09/18 15:00 83 01/09/18 14:00 76 01/09/18 12:26 2.00 01/09/18 12:00 74 01/09/18 11:45 68 16 143/82 (102) 97 01/09/18 11:00 72 01/09/18 10:00 72 01/09/18 09:00 68 01/09/18 08:33 98.2 68 16 151/89 (109) 97 01/09/18 07:00 100 01/09/18 06:26 98.5 65 16 143/82 (102) 99 01/09/18 06:00 64 01/09/18 05:00 62 01/09/18 04:10 65 16 135/73 (93) 98 01/09/18 04:00 62 01/09/18 03:00 69 01/09/18 02:00 62 01/09/18 01:00 60 01/09/18 00:00 60 01/08/18 23:30 64 16 134/67 (89) 99 01/08/18 23:00 85 01/08/18 22:08 98 Nasal Cannula 2.00 01/08/18 22:00 66 01/08/18 21:00 66 I/O 01/08/18 01/08/18 01/08/18 01/09/18 01/09/18 01/09/18 07:00 15:00 23:00 07:00 15:00 23:00 Intake Total 1480 ml 490 ml 600 ml Output Total 550 ml 600 ml 1200 ml Balance 930 ml -110 ml -600 ml Intake Oral 480 ml 240 ml 600 ml IV Total 1000 ml 250 ml Output Urine Total 550 ml 600 ml 1200 ml # Voids 2 # Bowel Movements 1 Result Diagram: 01/09/18 0246 01/09/18 0246 Objective Remarks GENERAL: Obese man who is lying comfortably in bed SKIN: Warm and dry. HEAD: Normocephalic. EYES: No scleral icterus. No injection or drainage. NECK: Supple, trachea midline. No JVD or lymphadenopathy. CARDIOVASCULAR: Regular rate and rhythm without murmurs, gallops, or rubs. RESPIRATORY: Breath sounds equal bilaterally. No accessory muscle use. GASTROINTESTINAL: Abdomen soft, non-tender, nondistended. EXTREMITIES: No cyanosis, or edema. NEUROLOGICAL: Awake, alert, and oriented x 3. Non-focal. A/P Problem List: (1) NSTEMI (non-ST elevated myocardial infarction) ICD Code: I21.4 - Non-ST elevation (NSTEMI) myocardial infarction Status: Acute (2) Hypertension ICD Code: I10 - Essential (primary) hypertension Status: Chronic (3) Obese ICD Code: E66.9 - Obesity, unspecified (4) Hyperlipidemia ICD Code: E78.5 - Hyperlipidemia, unspecified Status: Chronic (5) Diabetes ICD Code: E11.9 - Type 2 diabetes mellitus without complications Assessment and Plan NSTEMI Cardiac catheterization revealed extensive disease in the RCA and LAD that was not able to be fixed with stenting He was seen by cardiothoracic surgery today, and will be a slight delay with the surgical date due To workup for factor IX deficiency Continue beta-keila, PADMINI inhibitor, aspirin Appreciate cardiothoracic surgery consult Appreciate cardiology consult Appreciate hematology consult Hypertension, hyperlipidemia Continue home medications Type 2 diabetes Sliding scale insulin coverage with Accu-Cheks Diabetic diet DVT prophylaxis Heparin Problem Qualifiers (1) Hypertension: Qualified Codes: I10 - Essential (primary) hypertension (2) Hyperlipidemia: Qualified Codes: E78.00 - Pure hypercholesterolemia, unspecified Ray Borrego MD Jan 09, 2018 20:32
[2018-01-09] MEDS ORDERED: SODIUM CHLORIDE 0.9% FLUSH 10 ML FLUSH IV FLUSH SCH (21:00)
[2018-01-10] VITALS (29 sets, daily range): BP systolic 118–156; BP diastolic 67–91; PULSE 64–80; RESP 16–18; TEMP 98.7–100; O2SAT 95–100
[2018-01-10 01:24] LABS: BILIRUBIN, URINE NEG (NEG); BLOOD, URINE NEG (NEG); GLUCOSE,URINE NEG (NEG); KETONE, URINE NEG (NEG); MUCUS URINE FEW /lpf (OCC); NITRITE,URINE NEG (NEG); PH, URINE 6.5 (5.0-8.5); SQUAMOUS EPITHELIAL CELL URINE <1 /hpf (0-5); URINE COLOR LIGHT-YELLOW (YELLW/STRAW); URINE LEUKOCYTE ESTERASE NEG (NEG)
[2018-01-10] MEDS: ACETAMINOPHEN 325 MG TAB PO PRN (02:03)
[2018-01-10] MEDS: NITROGLYCERIN 2% OINT 1 GM PACKET TOP SCH ×4 (03:38→21:26)
[2018-01-10 06:30] LABS: BICARBONATE 26.4 MEQ/L (21.0-32.0); BLOOD UREA NITROGEN 12 MG/DL (7-18); CALCIUM 8.9 MG/DL (8.5-10.1); CHLORIDE 106 MEQ/L (98-107); CREATININE 1.23 MG/DL (0.60-1.30); GLOMERULAR FILTRATION RATE 75 ML/MIN (>89); GLUCOSE,RANDOM 102 MG/DL (74-106); SODIUM (NA) 140 MEQ/L (136-145)
[2018-01-10] MEDS: INSULIN ASPART SUPPLEMENTAL SCALE SQ SCH ×4 (08:00→21:00)
--- NOTE | 2018-01-10 08:04 | PD.CARD.PN ---
Subjective Subjective Remarks No further CP. No dyspnea, dizziness, palpitations, wrist pain. Objective Medications Item Value Date Time Aspirin 325 mg 01/09/18 0900 (Ecotrin Ec) DAILY/PO 01/09/18 0955 Atorvastatin 40 mg 01/09/18 0900 Calcium DAILY/PO 01/09/18 0955 (Lipitor) Lisinopril 20 mg 01/09/18 0900 (Prinivil) DAILY/PO 01/09/18 0956 Carvedilol 3.125 mg 01/08/18 1000 (Coreg) Q12HR/PO 01/09/18 2145 Nitroglycerin 1 inch 01/08/18 1000 (Nitroglycerin Q6H/TOP 01/10/18 0338 2% Oint) Current Medications Medications (Trade) Dose Ordered Sig/Jose Route Start Time Stop Time Status Last Admin (D50w (Vial) Inj) 50 ml UNSCH PRN IV PUSH 01/08/18 09:15 (Glucagon Inj) 1 mg UNSCH PRN OTHER 01/08/18 09:15 (NovoLOG SUPPLEMENTAL SCALE) 1 ACHS SLIDING SCALE SQ 01/08/18 12:00 (Ecotrin Ec) 325 mg DAILY PO 01/09/18 09:00 01/09/18 09:55 (Nitroglycerin 2% Oint) 1 inch Q6H TOP 01/08/18 10:00 01/10/18 03:38 (Nitrostat Sl) 0.4 mg Q5M PRN SL 01/08/18 09:15 (Tylenol) 650 mg Q6H PRN PO 01/08/18 09:15 01/10/18 02:03 (Xanax) 0.25 mg Q8H PRN PO 01/08/18 09:15 (Zofran Inj) 4 mg Q6H PRN IV PUSH 01/08/18 09:15 (NS Flush) 2 ml UNSCH PRN IV FLUSH 01/08/18 09:15 (NS Flush) 2 ml BID IV FLUSH 01/08/18 21:00 01/09/18 21:45 (Reglan Inj) 5 mg Q6H PRN IV PUSH 01/08/18 09:15 (Ambien) 5 mg HS PRN PO 01/08/18 09:15 (Tylenol) 650 mg Q6H PRN PO 01/08/18 09:15 (Percocet 5-325 Mg) 1 tab Q6H PRN PO 01/08/18 09:15 (Percocet 10-325 Mg) 1 tab Q6H PRN PO 01/08/18 09:15 (Dilaudid Pf Inj) 0.5 mg Q3H PRN IV PUSH 01/08/18 09:30 (Dilaudid Pf Inj) 1 mg Q3H PRN IV PUSH 01/08/18 09:30 (Dilaudid Pf Inj) 1 mg Q3H PRN IV PUSH 01/08/18 09:30 (Narcan Inj) 0.4 mg UNSCH PRN IV PUSH 01/08/18 09:15 (Rosa-Colace) 1 tab BID PO 01/08/18 21:00 (Milk Of Magnesia Liq) 30 ml Q12H PRN PO 01/08/18 09:15 (Senokot) 17.2 mg Q12H PRN PO 01/08/18 09:15 (Dulcolax Supp) 10 mg DAILY PRN RECTAL 01/08/18 09:15 (Lactulose Liq) 30 ml DAILY PRN PO 01/08/18 09:15 (Lipitor) 40 mg DAILY PO 01/09/18 09:00 01/09/18 09:55 (Prinivil) 20 mg DAILY PO 01/09/18 09:00 01/09/18 09:56 (Coreg) 3.125 mg Q12HR PO 01/08/18 10:00 01/09/18 21:45 (Benadryl) 50 mg MECHANICAL INSPECTOR PO 01/08/18 10:00 01/12/18 09:59 01/09/18 06:27 (Valium) 10 mg MECHANICAL INSPECTOR PO 01/08/18 10:00 01/12/18 09:59 01/09/18 06:27 (Versed Inj) 1 mg MECHANICAL INSPECTOR IV PUSH 01/08/18 10:00 01/12/18 09:59 Papaverine HCl 60 mg/Nitroglycerin 100 mcg/Verapamil HCl 100 mg/Sodium Chloride 100 ml @ 0 mls/hr MECHANICAL INSPECTOR IRRIGATION 01/09/18 12:00 01/16/18 11:59 Cefazolin Sodium 500 mg/Sodium Chloride 505 ml @ 0 mls/hr MECHANICAL INSPECTOR IRRIGATION 01/09/18 12:00 01/16/18 11:59 Cefazolin Sodium/ Dextrose 50 ml @ 100 mls/hr MECHANICAL INSPECTOR IV 01/09/18 12:00 01/16/18 11:59 (Lopressor) 12.5 mg MECHANICAL INSPECTOR PO 01/09/18 12:00 01/16/18 11:59 (Hibiclens 4% Top Soln) 1 applic MECHANICAL INSPECTOR TOPICAL 01/09/18 12:00 01/16/18 11:59 Insulin Human Regular 100 units/ Sodium Chloride 100 ml @ 3 mls/hr TITRATE PRN IV 01/09/18 12:00 01/16/18 11:59 (D50w (Vial) Inj) 50 ml UNSCH PRN IV PUSH 01/09/18 12:00 Vital Signs / I&O Vital Signs Date Time Temp Pulse Resp B/P (MAP) Pulse Ox O2 Delivery O2 Flow Rate FiO2 01/10/18 06:00 64 01/10/18 05:00 67 01/10/18 04:00 67 01/10/18 03:30 98.8 77 16 118/67 (84) 95 01/10/18 03:00 77 01/10/18 02:00 68 01/10/18 01:00 80 01/10/18 00:00 100.0 75 16 153/76 (101) 96 01/10/18 00:00 75 01/09/18 23:00 69 01/09/18 22:00 80 01/09/18 21:00 72 01/09/18 20:00 70 01/09/18 20:00 99.5 70 16 137/80 (99) 100 01/09/18 19:00 72 01/09/18 18:00 78 01/09/18 17:00 64 01/09/18 16:00 72 01/09/18 15:45 99.6 80 16 142/79 (100) 100 01/09/18 15:00 83 01/09/18 14:00 76 01/09/18 12:26 2.00 01/09/18 12:00 74 01/09/18 11:45 68 16 143/82 (102) 97 01/09/18 11:00 72 01/09/18 10:00 72 01/09/18 09:00 68 01/09/18 08:33 98.2 68 16 151/89 (109) 97 I/O 01/09/18 01/09/18 01/09/18 01/10/18 01/10/18 01/10/18 07:00 15:00 23:00 07:00 15:00 23:00 Intake Total 490 ml 600 ml 720 ml Output Total 600 ml 1200 ml 1300 ml Balance -110 ml -600 ml -580 ml Intake Oral 240 ml 600 ml 720 ml IV Total 250 ml Output Urine Total 600 ml 1200 ml 1300 ml # Voids 2 # Bowel Movements 1 0 Physical Exam GENERAL: Well developed, well nourished. No acute distress. HEENT: Jugular venous pressure is normal. CHEST: Lungs clear to auscultation anteriorly. CARDIAC: Regular rate and rhythm without S3, S4, or murmur. ABDOMEN: Soft, nontender, no hepatosplenomegaly. Bowel sounds present. EXTREMITIES: No clubbing, cyanosis, or edema. Right radial arteriotomy site stable, normal radial pulse. Laboratory Laboratory Tests Test 01/09/18 10:24 01/09/18 16:15 01/09/18 23:40 01/10/18 05:25 Activated Partial Thromboplast Time 24.7 SEC 25.6 SEC Prothrombin Time 11.4 SEC Prothromb Time International Ratio 1.1 RATIO Urine Color LIGHT-YELLOW Urine Turbidity CLEAR Urine pH 6.5 Urine Specific [place] 1.009 Urine Protein NEG mg/dL Urine Glucose (UA) NEG mg/dL Urine Ketones NEG mg/dL Urine Occult Blood NEG Urine Nitrite NEG Urine Bilirubin NEG Urine Urobilinogen LESS THAN 2.0 MG/DL Urine Leukocyte Esterase NEG Urine WBC LESS THAN 1 /hpf Urine Squamous Epithelial Cells <1 /hpf Urine Mucus FEW /lpf Microscopic Urinalysis Comment CULT NOT INDICATED Nasal Screen MRSA (PCR) MRSA NOT DETECTED Blood Urea Nitrogen 12 MG/DL Creatinine 1.23 MG/DL Random Glucose 102 MG/DL Calcium Level 8.9 MG/DL Sodium Level 140 MEQ/L Potassium Level 3.7 MEQ/L Chloride Level 106 MEQ/L Carbon Dioxide Level 26.4 MEQ/L Anion Gap 8 MEQ/L Estimat Glomerular Filtration Rate 75 ML/MIN Assessment and Plan Problem List: (1) NSTEMI (non-ST elevated myocardial infarction) ICD Codes: I21.4 - Non-ST elevation (NSTEMI) myocardial infarction Status: Acute Plan: Severe 2 vessel CAD on cath yesterday. Stable overnight. No further angina. EF normal by cath and echo. Await CABG. Will f/u as needed rest of hospital stay. (2) Hypertension ICD Codes: I10 - Essential (primary) hypertension Status: Chronic Plan: Fluctuating BP's. Rec continue to monitor. (3) Hyperlipidemia ICD Codes: E78.5 - Hyperlipidemia, unspecified Status: Chronic Plan: Suboptimal LDL level. Desirable <<< 70. Continue atorvastatin at higher dosing. Code Status full code Discussed Condition With patient Problem Qualifiers (1) Hypertension: Qualified Codes: I10 - Essential (primary) hypertension (2) Hyperlipidemia: Qualified Codes: E78.00 - Pure hypercholesterolemia, unspecified Yefri Guillen MD Jan 10, 2018 08:04
[2018-01-10] MEDS: DOCUSATE SODIUM 50 MG/SENNA 8.6 MG TAB PO SCH ×2 (08:52→21:00)
[2018-01-10] MEDS: CARVEDILOL 3.125 MG TAB PO SCH ×2 (08:53→21:26)
[2018-01-10] MEDS: ATORVASTATIN 40 MG TAB PO SCH (08:53)
[2018-01-10] MEDS: SODIUM CHLORIDE 0.9% FLUSH 10 ML FLUSH IV FLUSH SCH ×2 (08:53→21:25)
[2018-01-10] MEDS: ASPIRIN EC 325 MG TABEC PO SCH (08:53)
[2018-01-10] MEDS: amLODIPine BESYLATE 5 MG TAB PO SCH (08:54)
--- NOTE | 2018-01-10 09:30 | PD.CAR.PN ---
CVT Progress Note Subjective/Hospital Course: A 52-year-old male admitted 01/08/2018 at 0700. Apparently woke up earlier that morning with chest pressure associated receive some aspirin and sublingual nitro with some relief. Chest pain occurred again. He was given some morphine and had an allergic reaction to the drug. He says he has had some chest discomfort over the past year, but with much less intensity. Denies any palpitations. No shortness of breath, no paroxysmal nocturnal dyspnea. He was found to have an acute non-ST segment [place], underwent cardiac catheterization this morning which showed an ejection fraction of 60%, left main disease of 30%, the proximal LAD 90%, circumflex was 40% and the RCA 95%. We were consulted to evaluate for coronary artery bypass grafting. PAST MEDICAL HISTORY: Includes hyperlipidemia, hypertension, diabetes mellitus on oral medication. 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 01/10 appreciate assistance from Hematology, Factor 9 lab pending will schedule for surgery once cleared by Heme/ Dr Zapien spoke with pt and daughter no chest pain last night Objective: GENERAL: SKIN: Warm and dry. HEAD: Normocephalic. EYES: No scleral icterus. No injection or drainage. NECK: Supple, trachea midline. No JVD or lymphadenopathy. CARDIOVASCULAR: Regular rate and rhythm without murmurs, gallops, or rubs. RESPIRATORY: Breath sounds equal bilaterally. No accessory muscle use. GASTROINTESTINAL: Abdomen soft, non-tender, nondistended. MUSCULOSKELETAL: No cyanosis, or edema. BACK: Nontender without obvious deformity. No CVA tenderness. Vital Signs Date Time Temp Pulse Resp B/P (MAP) Pulse Ox O2 Delivery O2 Flow Rate FiO2 01/10/18 08:58 97 21 01/10/18 06:00 64 01/10/18 05:00 67 01/10/18 04:00 67 01/10/18 03:30 98.8 77 16 118/67 (84) 95 01/10/18 03:00 77 01/10/18 02:00 68 01/10/18 01:00 80 01/10/18 00:00 100.0 75 16 153/76 (101) 96 01/10/18 00:00 75 01/09/18 23:00 69 01/09/18 22:00 80 01/09/18 21:00 72 01/09/18 20:00 70 01/09/18 20:00 99.5 70 16 137/80 (99) 100 01/09/18 19:00 72 01/09/18 18:00 78 01/09/18 17:00 64 01/09/18 16:00 72 01/09/18 15:45 99.6 80 16 142/79 (100) 100 01/09/18 15:00 83 01/09/18 14:00 76 01/09/18 12:26 2.00 01/09/18 12:00 74 01/09/18 11:45 68 16 143/82 (102) 97 01/09/18 11:00 72 01/09/18 10:00 72 Labs: Laboratory Tests Test 01/09/18 23:40 01/10/18 05:25 Urine Color LIGHT-YELLOW (YELLW/STRAW) Urine Turbidity CLEAR (CLEAR) Urine pH 6.5 (5.0-8.5) Urine Specific [place] 1.009 (1.002-1.035) Urine Protein NEG mg/dL (NEG-TRACE) Urine Glucose (UA) NEG mg/dL (NEG) Urine Ketones NEG mg/dL (NEG) Urine Occult Blood NEG (NEG) Urine Nitrite NEG (NEG) Urine Bilirubin NEG (NEG) Urine Urobilinogen LESS THAN 2.0 MG/DL (LESS Urine Leukocyte Esterase NEG (NEG) Urine WBC LESS THAN 1 /hpf (0-5) Urine Squamous Epithelial Cells <1 /hpf (0-5) Urine Mucus FEW /lpf (OCC) Microscopic Urinalysis Comment CULT NOT INDICATED Nasal Screen MRSA (PCR) MRSA NOT DETECTED (NOT Blood Urea Nitrogen 12 MG/DL (7-18) Creatinine 1.23 MG/DL (0.60-1.30) Random Glucose 102 MG/DL (74-106) Calcium Level 8.9 MG/DL (8.5-10.1) Sodium Level 140 MEQ/L (136-145) Potassium Level 3.7 MEQ/L (3.5-5.1) Chloride Level 106 MEQ/L (98-107) Carbon Dioxide Level 26.4 MEQ/L (21.0-32.0) Anion Gap 8 MEQ/L (5-15) Estimat Glomerular Filtration Rate 75 ML/MIN (>89) Result Diagram: 01/09/18 0246 01/10/18 0525 (1) NSTEMI (non-ST elevated myocardial infarction) Plan: Severe 2 vessel CAD on cath yesterday. Stable overnight. No further angina. EF normal by cath and echo. timing for CABG pending clearance from Hematology (2) Hypertension Plan: Fluctuating BP's. Rec continue to monitor. (3) Hyperlipidemia Plan: Suboptimal LDL level. Desirable <<< 70. Continue atorvastatin at higher dosing. Problem Qualifiers (1) Hypertension: Qualified Codes: I10 - Essential (primary) hypertension (2) Hyperlipidemia: Qualified Codes: E78.00 - Pure hypercholesterolemia, unspecified Betty Sloan Jan 10, 2018 09:30
[2018-01-10 10:49] LABS: HEMOGLOBIN A1C 5.9 % (4.3-6.0)
--- NOTE | 2018-01-10 13:24 | PD.ONC.PN ---
Subjective Subjective Remarks Afebrile overnight. Patient resting in bed in nad. denies chest pain. no bleeding. sitting with father at bedside. Objective Data Date Time Temp Pulse Resp B/P (MAP) Pulse Ox O2 Delivery O2 Flow Rate FiO2 01/10/18 12:01 74 01/10/18 11:15 98.8 76 18 152/85 (107) 97 01/10/18 11:00 70 01/10/18 10:00 76 01/10/18 09:00 68 01/10/18 08:58 97 21 01/10/18 08:45 99.2 75 18 156/81 (106) 97 01/10/18 08:00 78 01/10/18 07:00 72 01/10/18 06:00 64 01/10/18 05:00 67 01/10/18 04:00 67 01/10/18 03:30 98.8 77 16 118/67 (84) 95 01/10/18 03:00 77 01/10/18 02:00 68 01/10/18 01:00 80 01/10/18 00:00 100.0 75 16 153/76 (101) 96 01/10/18 00:00 75 01/09/18 23:00 69 01/09/18 22:00 80 01/09/18 21:00 72 01/09/18 20:00 70 01/09/18 20:00 99.5 70 16 137/80 (99) 100 01/09/18 19:00 72 01/09/18 18:00 78 01/09/18 17:00 64 01/09/18 16:00 72 01/09/18 15:45 99.6 80 16 142/79 (100) 100 01/09/18 15:00 83 01/09/18 14:00 76 01/10/18 01/10/18 01/10/18 06:59 14:59 22:59 Intake Total 720 ml Output Total 1300 ml Balance -580 ml Result Diagram: 01/09/18 0246 01/10/18 0525 Laboratory Results Laboratory Tests Test 01/09/18 16:15 01/09/18 23:40 01/10/18 05:25 Prothrombin Time 11.4 SEC Prothromb Time International Ratio 1.1 RATIO Activated Partial Thromboplast Time 25.6 SEC Urine Color LIGHT-YELLOW Urine Turbidity CLEAR Urine pH 6.5 Urine Specific [place] 1.009 Urine Protein NEG mg/dL Urine Glucose (UA) NEG mg/dL Urine Ketones NEG mg/dL Urine Occult Blood NEG Urine Nitrite NEG Urine Bilirubin NEG Urine Urobilinogen LESS THAN 2.0 MG/DL Urine Leukocyte Esterase NEG Urine WBC LESS THAN 1 /hpf Urine Squamous Epithelial Cells <1 /hpf Urine Mucus FEW /lpf Microscopic Urinalysis Comment CULT NOT INDICATED Nasal Screen MRSA (PCR) MRSA NOT DETECTED Blood Urea Nitrogen 12 MG/DL Creatinine 1.23 MG/DL Random Glucose 102 MG/DL Calcium Level 8.9 MG/DL Sodium Level 140 MEQ/L Potassium Level 3.7 MEQ/L Chloride Level 106 MEQ/L Carbon Dioxide Level 26.4 MEQ/L Anion Gap 8 MEQ/L Estimat Glomerular Filtration Rate 75 ML/MIN Culture Results Microbiology Date/Time Source Procedure Growth Status 01/08/18 19:15 Stool Stool Stool Occult Blood (EDMUNDO) - Final HEMOCCULT NEGATIVE Complete Administered Medications Medications (Trade) Dose Ordered Sig/Jose Route PRN Reason Start Time Stop Time Status Last Admin Dose Admin Aspirin (Ecotrin Ec) 325 mg DAILY PO 01/09/18 09:00 01/10/18 08:53 Nitroglycerin (Nitroglycerin 2% Oint) 1 inch Q6H TOP 01/08/18 10:00 01/10/18 11:28 Acetaminophen (Tylenol) 650 mg Q6H PRN PO HEADACHE OR TEMP > 101 F 01/08/18 09:15 01/10/18 02:03 Sodium Chloride (NS Flush) 2 ml BID IV FLUSH 01/08/18 21:00 01/10/18 08:53 Senna/Docusate Sodium (Rosa-Colace) 1 tab BID PO 01/08/18 21:00 01/10/18 08:52 Atorvastatin Calcium (Lipitor) 40 mg DAILY PO 01/09/18 09:00 01/10/18 08:53 Lisinopril (Prinivil) 20 mg DAILY PO 01/09/18 09:00 Future Hold 01/09/18 09:56 Carvedilol (Coreg) 3.125 mg Q12HR PO 01/08/18 10:00 01/10/18 08:53 Diphenhydramine HCl (Benadryl) 50 mg JERKER PO 4/15/18 10:00 01/12/18 09:59 01/09/18 06:27 Diazepam (Valium) 10 mg JERKER PO 01/08/18 10:00 01/12/18 09:59 01/09/18 06:27 Amlodipine Besylate (Norvasc) 5 mg DAILY PO 01/10/18 09:00 01/10/18 08:54 Objective Remarks GENERAL: Middle aged male, sitting up in bed in nad. SKIN: Warm and dry. HEAD: Normocephalic. EYES: No injection or drainage. NECK: Supple, trachea midline. CARDIOVASCULAR: Regular rate and rhythm RESPIRATORY: Breath sounds equal bilaterally. No accessory muscle use. GASTROINTESTINAL: Abdomen soft, non-tender, nondistended. EXTREMITIES: No cyanosis NEUROLOGICAL: awake and alert. normal speech. moving all extremities. 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 discussed that the only way to have obtained it is if his mother was a carrier. discussed that the Factor IX test is still pending and will wait on result prior to hematology clearance for surgery. --patient has never been tested for factor IX deficiency --no personal h/o excess bleeding --per father multiple men on paternal side of family (several of patient's father's brothers, i.e. uncles) with factor IX deficiency --father was diagnosed after car accident. (2) CAD (coronary artery disease) ICD Codes: I25.10 - Atherosclerotic heart disease of [place] coronary artery without angina pectoris Plan: --CTS plans to do CABG once cleared by hematology --RCA not stentable. Assessment 52y/o male with severe CAD. 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 h/o Hypertension, diabetes mellitus, hypercholesterolemia, morbid obesity. Marilee Celestin Jan 10, 2018 13:24
--- NOTE | 2018-01-10 16:19 | HHI.PR ---
Subjective Remarks Patient is resting comfortably denies any chest pain, nausea, vomiting. Objective Vitals Vital Signs Date Time Temp Pulse Resp B/P (MAP) Pulse Ox O2 Delivery O2 Flow Rate FiO2 01/10/18 15:30 98.7 76 18 138/67 (90) 100 01/10/18 12:01 74 01/10/18 11:15 98.8 76 18 152/85 (107) 97 01/10/18 11:00 70 01/10/18 10:00 76 01/10/18 09:00 68 01/10/18 08:58 97 21 01/10/18 08:45 99.2 75 18 156/81 (106) 97 01/10/18 08:00 78 01/10/18 07:00 72 01/10/18 06:00 64 01/10/18 05:00 67 01/10/18 04:00 67 01/10/18 03:30 98.8 77 16 118/67 (84) 95 01/10/18 03:00 77 01/10/18 02:00 68 01/10/18 01:00 80 01/10/18 00:00 100.0 75 16 153/76 (101) 96 01/10/18 00:00 75 01/09/18 23:00 69 01/09/18 22:00 80 01/09/18 21:00 72 01/09/18 20:00 70 01/09/18 20:00 99.5 70 16 137/80 (99) 100 01/09/18 19:00 72 01/09/18 18:00 78 01/09/18 17:00 64 I/O 01/09/18 01/09/18 01/09/18 01/10/18 01/10/18 01/10/18 06:59 14:59 22:59 06:59 14:59 22:59 Intake Total 490 ml 600 ml 720 ml Output Total 600 ml 1200 ml 1300 ml Balance -110 ml -600 ml -580 ml Intake Oral 240 ml 600 ml 720 ml IV Total 250 ml Output Urine Total 600 ml 1200 ml 1300 ml # Voids 2 # Bowel Movements 1 0 Result Diagram: 01/09/18 0246 01/10/18 0525 Objective Remarks GENERAL: Obese man who is lying comfortably in bed SKIN: Warm and dry. HEAD: Normocephalic. EYES: No scleral icterus. No injection or drainage. NECK: Supple, trachea midline. No JVD or lymphadenopathy. CARDIOVASCULAR: Regular rate and rhythm without murmurs, gallops, or rubs. RESPIRATORY: Breath sounds equal bilaterally. No accessory muscle use. GASTROINTESTINAL: Abdomen soft, non-tender, nondistended. EXTREMITIES: No cyanosis, or edema. NEUROLOGICAL: Awake, alert, and oriented x 3. Non-focal. A/P Problem List: (1) NSTEMI (non-ST elevated myocardial infarction) ICD Code: I21.4 - Non-ST elevation (NSTEMI) myocardial infarction Status: Acute (2) Hypertension ICD Code: I10 - Essential (primary) hypertension Status: Chronic (3) Obese ICD Code: E66.9 - Obesity, unspecified (4) Hyperlipidemia ICD Code: E78.5 - Hyperlipidemia, unspecified Status: Chronic (5) Diabetes ICD Code: E11.9 - Type 2 diabetes mellitus without complications Assessment and Plan NSTEMI Cardiac catheterization revealed extensive disease in the RCA and LAD that was not able to be fixed with stenting He was seen by cardiothoracic surgery today, and will be a slight delay with the surgical date due To workup for factor IX deficiency Continue beta-keila, PADMINI inhibitor, aspirin Appreciate cardiothoracic surgery consult Appreciate cardiology consult Appreciate hematology consult h/o Factor IX abnormality Factor IX level ordered with general coagulopathy panel Open heart surgery delayed until workup and recommendations completed Appreciate Oncology's assistance with this work up Hypertension, hyperlipidemia Continue home medications Type 2 diabetes Sliding scale insulin coverage with Accu-Cheks Diabetic diet DVT prophylaxis Heparin Problem Qualifiers (1) Hypertension: Qualified Codes: I10 - Essential (primary) hypertension (2) Hyperlipidemia: Qualified Codes: E78.00 - Pure hypercholesterolemia, unspecified Ray Borrego MD Jan 10, 2018 16:19
[2018-01-11] VITALS (25 sets, daily range): BP systolic 130–165; BP diastolic 72–91; PULSE 56–88; RESP 16–22; TEMP 97.5–99.4; O2SAT 97–100
[2018-01-11] MEDS: NITROGLYCERIN 2% OINT 1 GM PACKET TOP SCH ×4 (03:23→21:53)
[2018-01-11] MEDS: ACETAMINOPHEN 325 MG TAB PO PRN (03:23)
[2018-01-11 06:48] LABS: HEMATOCRIT 38.1 % (39.0-51.0); HEMOGLOBIN 13.1 GM/DL (13.0-17.0); MEAN CELL VOLUME 79.9 FL (80.0-100.0); MEAN CORPUSCULAR HEMOGLOBIN 27.4 PG (27.0-34.0); MEAN CORPUSCULAR HGB CONC 34.3 % (32.0-36.0); MEAN PLATELET VOLUME 8.8 FL (7.0-11.0); PLATELET COUNT 143 TH/MM3 (150-450); RED BLOOD COUNT 4.77 MIL/MM3 (4.50-5.90); RED CELL DISTRIBUTION WIDTH 15.1 % (11.6-17.2); WHITE BLOOD COUNT 5.9 TH/MM3 (4.0-11.0)
[2018-01-11] MEDS: INSULIN ASPART SUPPLEMENTAL SCALE SQ SCH ×4 (08:00→20:58)
[2018-01-11] MEDS: DOCUSATE SODIUM 50 MG/SENNA 8.6 MG TAB PO SCH ×2 (09:00→21:00)
[2018-01-11] MEDS: ASPIRIN EC 325 MG TABEC PO SCH (09:02)
[2018-01-11] MEDS: CARVEDILOL 3.125 MG TAB PO SCH ×2 (09:02→20:06)
[2018-01-11] MEDS: ATORVASTATIN 40 MG TAB PO SCH (09:03)
[2018-01-11] MEDS: SODIUM CHLORIDE 0.9% FLUSH 10 ML FLUSH IV FLUSH SCH ×2 (09:03→21:54)
[2018-01-11] MEDS: amLODIPine BESYLATE 5 MG TAB PO SCH (09:03)
--- NOTE | 2018-01-11 11:50 | PD.CAR.PN ---
CVT Progress Note Subjective/Hospital Course: A 52-year-old male admitted 01/08/2018 at 0700. Apparently woke up earlier that morning with chest pressure associated receive some aspirin and sublingual nitro with some relief. Chest pain occurred again. He was given some morphine and had an allergic reaction to the drug. He says he has had some chest discomfort over the past year, but with much less intensity. Denies any palpitations. No shortness of breath, no paroxysmal nocturnal dyspnea. He was found to have an acute non-ST segment [place], underwent cardiac catheterization this morning which showed an ejection fraction of 60%, left main disease of 30%, the proximal LAD 90%, circumflex was 40% and the RCA 95%. We were consulted to evaluate for coronary artery bypass grafting. PAST MEDICAL HISTORY: Includes hyperlipidemia, hypertension, diabetes mellitus on oral medication. 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 01/10 appreciate assistance from Hematology, Factor 9 lab pending will schedule for surgery once cleared by Donn/ Dr Zapien spoke with pt and daughter no chest pain last night 01/11 waiting on facto 9 lab results/ spoke with Donn WELFARE INTERVIEWER, may not be available until tuesday apparently this is a x-linked mutation. discussed that the only way to have obtained it is if his mother was a carrier ( per Donn ) pt anxious to proceed with surgery Objective: GENERAL: SKIN: Warm and dry. HEAD: Normocephalic. EYES: No scleral icterus. No injection or drainage. NECK: Supple, trachea midline. No JVD or lymphadenopathy. CARDIOVASCULAR: Regular rate and rhythm without murmurs, gallops, or rubs. RESPIRATORY: Breath sounds equal bilaterally. No accessory muscle use. GASTROINTESTINAL: Abdomen soft, non-tender, nondistended. MUSCULOSKELETAL: No cyanosis, or edema. BACK: Nontender without obvious deformity. No CVA tenderness. Vital Signs Date Time Temp Pulse Resp B/P (MAP) Pulse Ox O2 Delivery O2 Flow Rate FiO2 01/11/18 10:05 97 21 01/11/18 07:00 66 01/11/18 07:00 98.5 75 18 130/73 (92) 98 01/11/18 06:00 71 01/11/18 05:00 72 01/11/18 04:00 68 01/11/18 03:00 62 01/11/18 03:00 99.4 79 16 134/80 (98) 98 01/11/18 02:00 81 01/11/18 01:00 65 01/11/18 00:00 99.1 83 16 139/72 (94) 97 01/11/18 00:00 72 01/10/18 23:00 80 01/10/18 22:00 74 01/10/18 21:00 68 01/10/18 20:00 72 01/10/18 20:00 99.8 71 16 152/91 (111) 98 01/10/18 19:00 68 01/10/18 18:00 74 01/10/18 17:00 72 01/10/18 16:01 66 01/10/18 15:30 98.7 76 18 138/67 (90) 100 01/10/18 15:00 77 01/10/18 14:00 68 01/10/18 13:00 70 01/10/18 12:01 74 Labs: Laboratory Tests Test 01/11/18 06:19 White Blood Count 5.9 TH/MM3 (4.0-11.0) Red Blood Count 4.77 MIL/MM3 (4.50-5.90) Hemoglobin 13.1 GM/DL (13.0-17.0) Hematocrit 38.1 % (39.0-51.0) Mean Corpuscular Volume 79.9 FL (80.0-100.0) Mean Corpuscular Hemoglobin 27.4 PG (27.0-34.0) Mean Corpuscular Hemoglobin Concent 34.3 % (32.0-36.0) Red Cell Distribution Width 15.1 % (11.6-17.2) Platelet Count 143 TH/MM3 (150-450) Mean Platelet Volume 8.8 FL (7.0-11.0) Result Diagram: 01/11/18 0619 01/10/18 0525 (1) NSTEMI (non-ST elevated myocardial infarction) Plan: Severe 2 vessel CAD on cath yesterday. Stable overnight. No further angina. EF normal by cath and echo. timing for CABG pending clearance from Hematology (2) Hypertension Plan: Fluctuating BP's. Rec continue to monitor. (3) Hyperlipidemia Plan: Suboptimal LDL level. Desirable <<< 70. Continue atorvastatin at higher dosing. Problem Qualifiers (1) Hypertension: Qualified Codes: I10 - Essential (primary) hypertension (2) Hyperlipidemia: Qualified Codes: E78.00 - Pure hypercholesterolemia, unspecified Betty Sloan Jan 11, 2018 11:50
--- NOTE | 2018-01-11 12:43 | PD.ONC.PN ---
Subjective Subjective Remarks Tmax 99.8 last night Patient anxious to learn what the results are of his factor IX test Objective Data Date Time Temp Pulse Resp B/P (MAP) Pulse Ox O2 Delivery O2 Flow Rate FiO2 01/11/18 10:05 97 21 01/11/18 07:00 66 01/11/18 07:00 98.5 75 18 130/73 (92) 98 01/11/18 06:00 71 01/11/18 05:00 72 01/11/18 04:00 68 01/11/18 03:00 62 01/11/18 03:00 99.4 79 16 134/80 (98) 98 01/11/18 02:00 81 01/11/18 01:00 65 01/11/18 00:00 99.1 83 16 139/72 (94) 97 01/11/18 00:00 72 01/10/18 23:00 80 01/10/18 22:00 74 01/10/18 21:00 68 01/10/18 20:00 72 01/10/18 20:00 99.8 71 16 152/91 (111) 98 01/10/18 19:00 68 01/10/18 18:00 74 01/10/18 17:00 72 01/10/18 16:01 66 01/10/18 15:30 98.7 76 18 138/67 (90) 100 01/10/18 15:00 77 01/10/18 14:00 68 01/10/18 13:00 70 01/11/18 01/11/18 01/11/18 06:59 14:59 22:59 Intake Total 480 ml Output Total 1200 ml Balance -720 ml Result Diagram: 01/11/1819 01/10/18 0525 Laboratory Results Laboratory Tests Test 01/11/18 06:19 White Blood Count 5.9 TH/MM3 Red Blood Count 4.77 MIL/MM3 Hemoglobin 13.1 GM/DL Hematocrit 38.1 % Mean Corpuscular Volume 79.9 FL Mean Corpuscular Hemoglobin 27.4 PG Mean Corpuscular Hemoglobin Concent 34.3 % Red Cell Distribution Width 15.1 % Platelet Count 143 TH/MM3 Mean Platelet Volume 8.8 FL Culture Results Microbiology Date/Time Source Procedure Growth Status 01/08/18 19:15 Stool Stool Stool Occult Blood (EDMUNDO) - Final HEMOCCULT NEGATIVE Complete Administered Medications Medications (Trade) Dose Ordered Sig/Jose Route PRN Reason Start Time Stop Time Status Last Admin Dose Admin Insulin Aspart (NovoLOG SUPPLEMENTAL SCALE) 1 ACHS SLIDING SCALE SQ 01/08/18 12:00 01/10/18 17:00 Aspirin (Ecotrin Ec) 325 mg DAILY PO 01/09/18 09:00 01/11/18 09:02 Nitroglycerin (Nitroglycerin 2% Oint) 1 inch Q6H TOP 01/08/18 10:00 01/11/18 09:03 Acetaminophen (Tylenol) 650 mg Q6H PRN PO HEADACHE OR TEMP > 101 F 01/08/18 09:15 01/11/18 03:23 Sodium Chloride (NS Flush) 2 ml BID IV FLUSH 01/08/18 21:00 01/11/18 09:03 Senna/Docusate Sodium (Rosa-Colace) 1 tab BID PO 01/08/18 21:00 01/10/18 08:52 Atorvastatin Calcium (Lipitor) 40 mg DAILY PO 01/09/18 09:00 01/11/18 09:03 Lisinopril (Prinivil) 20 mg DAILY PO 01/09/18 09:00 Future Hold 01/09/18 09:56 Carvedilol (Coreg) 3.125 mg Q12HR PO 01/08/18 10:00 01/11/18 09:02 Diphenhydramine HCl (Benadryl) 50 mg DRAFTING TEACHER PO 01/08/18 10:00 01/12/18 09:59 01/09/18 06:27 Diazepam (Valium) 10 mg DRAFTING TEACHER PO 01/08/18 10:00 01/12/18 09:59 01/09/18 06:27 Amlodipine Besylate (Norvasc) 5 mg DAILY PO 01/10/18 09:00 01/11/18 09:03 Objective Remarks GENERAL: Middle-aged male sitting up in chair at bedside in no obvious distress SKIN: Warm and dry. HEAD: Normocephalic. EYES: No injection or drainage. NECK: Supple, trachea midline. CARDIOVASCULAR: Regular rate and rhythm without murmurs. RESPIRATORY: Clear posteriorly. Breathing unlabored at rest. GASTROINTESTINAL: Abdomen soft, non-tender, nondistended. EXTREMITIES: No cyanosis, or edema. MUSCULOSKELETAL: Adequate muscle tone. NEUROLOGICAL: No obvious focal deficit. Awake, alert, and oriented x3. 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 --patient has never been tested for factor IX deficiency --no personal h/o excess bleeding --per father multiple men on paternal side of family (several of patient's father's brothers, i.e. uncles) with factor IX deficiency --father was diagnosed after car accident. (2) CAD (coronary artery disease) ICD Codes: I25.10 - Atherosclerotic heart disease of [place] coronary artery without angina pectoris Plan: --CTS plans to do CABG once cleared by hematology --RCA not stentable. Assessment 52y/o male with severe CAD. 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 h/o Hypertension, diabetes mellitus, hypercholesterolemia, morbid obesity. Attending Statement The exam, history, and the medical decision-making described in the above note were completed with the assistance of the mid-level provider. I reviewed and agree with the findings presented. I attest that I had a [id number] encounter with the patient on the same day, and personally performed and documented my assessment and findings in the medical record. Denies CP/SOB Anxiously waiting for heart surgery. D/W Dima (Tech in Processing) . She has called [facility]. They received the specimen today. They do the test for Factor IX three times a week ( , and tue ) . They will set it up tomorrow and result will be ready on Tuesday. 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 His father can not pass his bad X gene to him. His father gave him Y gene and mother gave him X gene.. 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 So his X gene is normal which came from mom. His father can not pass X gene to sons. He can pass to his daughters and they are the carriers of hemophilia. 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 Also clinically he does not manifest any signs and symptoms of hemophilia. He denies any excess bleeding with multiple accidental cuts, trauma, falls, contact sports ( Basketball and Football), circumcision, multiple teeth extractions on separate occasions (last year had 7 teeth extracted in single sitting). So patient is cleared for CABG from hematological standpoint. Pt understood our discussion and wishes to proceed with surgery as soon as possible. His questions were answered in simple language and he is satisfied. I have discuss with Thoracic surgeon Dr Woodward over the phone and advice him that he can proceed with surgery from my standpoint. His surgery is schedule for this Tuesday. Pt is happy !!. Myrtle De Luna Jan 11, 2018 12:43 Quita Driver MD Jan 11, 2018 22:46
--- NOTE | 2018-01-11 16:57 | HHI.PR ---
Subjective Remarks Patient is resting comfortably in bed with a friend. He has no complaints. Objective Vitals Vital Signs Date Time Temp Pulse Resp B/P (MAP) Pulse Ox O2 Delivery O2 Flow Rate FiO2 01/11/18 16:00 66 01/11/18 15:30 97.9 72 18 139/80 (99) 100 01/11/18 15:00 65 01/11/18 14:00 66 01/11/18 13:00 76 01/11/18 12:00 88 01/11/18 11:30 97.5 76 18 142/84 (103) 98 01/11/18 11:00 74 01/11/18 10:05 97 21 01/11/18 10:00 74 01/11/18 09:00 74 01/11/18 08:00 82 01/11/18 07:00 66 01/11/18 07:00 98.5 75 18 130/73 (92) 98 01/11/18 06:00 71 01/11/18 05:00 72 01/11/18 04:00 68 01/11/18 03:00 62 01/11/18 03:00 99.4 79 16 134/80 (98) 98 01/11/18 02:00 81 01/11/18 01:00 65 01/11/18 00:00 99.1 83 16 139/72 (94) 97 01/11/18 00:00 72 01/10/18 23:00 80 01/10/18 22:00 74 01/10/18 21:00 68 01/10/18 20:00 72 01/10/18 20:00 99.8 71 16 152/91 (111) 98 01/10/18 19:00 68 01/10/18 18:00 74 01/10/18 17:00 72 I/O 01/10/18 01/10/18 01/10/18 01/11/18 01/11/18 01/11/18 07:00 15:00 23:00 07:00 15:00 23:00 Intake Total 720 ml 720 ml 480 ml Output Total 1300 ml 1200 ml 1200 ml Balance -580 ml -480 ml -720 ml Intake Oral 720 ml 720 ml 480 ml Output Urine Total 1300 ml 1200 ml 1200 ml # Voids 4 # Bowel Movements 0 1 1 Result Diagram: 01/11/18 0619 01/10/18 0525 Objective Remarks GENERAL: Obese man who is lying comfortably in bed SKIN: Warm and dry. HEAD: Normocephalic. EYES: No scleral icterus. No injection or drainage. NECK: Supple, trachea midline. No JVD or lymphadenopathy. CARDIOVASCULAR: Regular rate and rhythm without murmurs, gallops, or rubs. RESPIRATORY: Breath sounds equal bilaterally. No accessory muscle use. GASTROINTESTINAL: Abdomen soft, non-tender, nondistended. EXTREMITIES: No cyanosis, or edema. NEUROLOGICAL: Awake, alert, and oriented x 3. Non-focal. A/P Problem List: (1) NSTEMI (non-ST elevated myocardial infarction) ICD Code: I21.4 - Non-ST elevation (NSTEMI) myocardial infarction Status: Acute (2) Hypertension ICD Code: I10 - Essential (primary) hypertension Status: Chronic (3) Obese ICD Code: E66.9 - Obesity, unspecified (4) Hyperlipidemia ICD Code: E78.5 - Hyperlipidemia, unspecified Status: Chronic (5) Diabetes ICD Code: E11.9 - Type 2 diabetes mellitus without complications Assessment and Plan NSTEMI Cardiac catheterization revealed extensive disease in the RCA and LAD that was not able to be fixed with stenting He was seen by cardiothoracic surgery today, and will be a slight delay with the surgical date due To workup for factor IX deficiency Continue beta-keila, PADMINI inhibitor, aspirin Appreciate cardiothoracic surgery consult Appreciate cardiology consult Appreciate hematology consult h/o Factor IX abnormality Factor IX level ordered with general coagulopathy panel Open heart surgery delayed until workup and recommendations completed Per [facility] this laboratory level could take until Tuesday to return Appreciate Oncology's assistance with this work up Hypertension, hyperlipidemia Continue home medications Type 2 diabetes Sliding scale insulin coverage with Accu-Cheks Diabetic diet DVT prophylaxis Heparin Problem Qualifiers (1) Hypertension: Qualified Codes: I10 - Essential (primary) hypertension (2) Hyperlipidemia: Qualified Codes: E78.00 - Pure hypercholesterolemia, unspecified Ray Borrego MD Jan 11, 2018 16:57
[2018-01-12] VITALS (24 sets, daily range): BP systolic 133–156; BP diastolic 79–90; PULSE 62–90; RESP 18–20; TEMP 98.1–99; O2SAT 97–99
[2018-01-12] MEDS: INSULIN ASPART SUPPLEMENTAL SCALE SQ SCH ×4 (08:00→21:00)
[2018-01-12] MEDS: SODIUM CHLORIDE 0.9% FLUSH 10 ML FLUSH IV FLUSH SCH ×2 (08:14→21:51)
[2018-01-12] MEDS: ATORVASTATIN 40 MG TAB PO SCH (08:14)
[2018-01-12] MEDS: CARVEDILOL 3.125 MG TAB PO SCH ×2 (08:15→21:51)
[2018-01-12] MEDS: amLODIPine BESYLATE 5 MG TAB PO SCH (08:15)
[2018-01-12] MEDS: ASPIRIN EC 325 MG TABEC PO SCH (08:15)
[2018-01-12] MEDS: DOCUSATE SODIUM 50 MG/SENNA 8.6 MG TAB PO SCH ×2 (08:16→21:00)
[2018-01-12] MEDS: NITROGLYCERIN 2% OINT 1 GM PACKET TOP SCH ×3 (08:46→22:00)
--- NOTE | 2018-01-12 08:58 | PD.ONC.PN ---
Subjective Subjective Remarks Afebrile overnight. Patient resting in bed. glad that he is going for surgery tomorrow. no bleeding. denies pain. Objective Data Date Time Temp Pulse Resp B/P (MAP) Pulse Ox O2 Delivery O2 Flow Rate FiO2 01/12/18 04:01 69 01/12/18 04:00 98.1 66 20 133/79 (97) 97 01/12/18 00:01 62 01/12/18 00:00 98.2 70 20 140/79 (99) 99 01/11/18 20:03 73 01/11/18 20:00 98.9 75 22 165/91 (115) 98 01/11/18 19:44 100 01/11/18 18:00 74 01/11/18 17:00 68 01/11/18 16:00 66 01/11/18 15:30 97.9 72 18 139/80 (99) 100 01/11/18 15:00 65 01/11/18 14:00 66 01/11/18 13:00 76 01/11/18 12:00 88 01/11/18 11:30 97.5 76 18 142/84 (103) 98 01/11/18 11:00 74 01/11/18 10:05 97 21 01/11/18 10:00 74 01/11/18 09:00 74 01/12/18 01/12/18 01/12/18 07:00 15:00 23:00 Intake Total 240 ml Balance 240 ml Result Diagram: 01/11/18 0601/10/18 0525 Administered Medications Medications (Trade) Dose Ordered Sig/Jose Route PRN Reason Start Time Stop Time Status Last Admin Dose Admin Insulin Aspart (NovoLOG SUPPLEMENTAL SCALE) 1 ACHS SLIDING SCALE SQ 01/08/18 12:00 01/10/18 17:00 Aspirin (Ecotrin Ec) 325 mg DAILY PO 01/09/18 09:00 01/12/18 08:15 Nitroglycerin (Nitroglycerin 2% Oint) 1 inch Q6H TOP 01/08/18 10:00 01/12/18 08:46 Acetaminophen (Tylenol) 650 mg Q6H PRN PO HEADACHE OR TEMP > 101 F 01/08/18 09:15 01/11/18 03:23 Sodium Chloride (NS Flush) 2 ml BID IV FLUSH 01/08/18 21:00 01/12/18 08:14 Senna/Docusate Sodium (Rosa-Colace) 1 tab BID PO 01/08/18 21:00 01/10/18 08:52 Atorvastatin Calcium (Lipitor) 40 mg DAILY PO 01/09/18 09:00 01/12/18 08:14 Lisinopril (Prinivil) 20 mg DAILY PO 01/09/18 09:00 Future Hold 01/09/18 09:56 Carvedilol (Coreg) 3.125 mg Q12HR PO 01/08/18 10:00 01/12/18 08:15 Diphenhydramine HCl (Benadryl) 50 mg MEDICAL CERTIFICATION SPECIALIST PO 01/08/18 10:00 01/12/18 09:59 01/09/18 06:27 Diazepam (Valium) 10 mg MEDICAL CERTIFICATION SPECIALIST PO 01/08/18 10:00 01/12/18 09:59 01/09/18 06:27 Amlodipine Besylate (Norvasc) 5 mg DAILY PO 01/10/18 09:00 01/12/18 08:15 Objective Remarks GENERAL: Middle aged male, lying in bed in nad. SKIN: Warm and dry. HEAD: Normocephalic. EYES: No injection or drainage. NECK: Supple, trachea midline. CARDIOVASCULAR: Regular rate and rhythm RESPIRATORY: Breath sounds equal bilaterally. No accessory muscle use. GASTROINTESTINAL: Abdomen soft, non-tender, nondistended. EXTREMITIES: No cyanosis NEUROLOGICAL: awake and alert. normal speech. moving extremities. 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 again reviewed the x-linked nature of hemophilia. --patient has never been tested for factor IX deficiency --no personal h/o excess bleeding --per father multiple men on paternal side of family (several of patient's father's brothers, i.e. uncles) with factor IX deficiency --father was diagnosed after car accident. (2) CAD (coronary artery disease) ICD Codes: I25.10 - Atherosclerotic heart disease of [place] coronary artery without angina pectoris Plan: --CTS plans to do CABG Tuesday --RCA not stentable. Assessment 52y/o male with severe CAD. 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 h/o Hypertension, diabetes mellitus, hypercholesterolemia, morbid obesity. Attending Statement The exam, history, and the medical decision-making described in the above note were completed with the assistance of the mid-level provider. I reviewed and agree with the findings presented. I attest that I had a [id number] encounter with the patient on the same day, and personally performed and documented my assessment and findings in the medical record. No more CP stable. Ready for CABG tomorrow. will follow. Marilee Celestin Jan 12, 2018 08:58 Quita Driver MD Jan 12, 2018 23:09
--- NOTE | 2018-01-12 14:50 | PD.CAR.PN ---
CVT Progress Note Subjective/Hospital Course: A 52-year-old male admitted 01/08/2018 at 0700. Apparently woke up earlier that morning with chest pressure associated receive some aspirin and sublingual nitro with some relief. Chest pain occurred again. He was given some morphine and had an allergic reaction to the drug. He says he has had some chest discomfort over the past year, but with much less intensity. Denies any palpitations. No shortness of breath, no paroxysmal nocturnal dyspnea. He was found to have an acute non-ST segment VA, underwent cardiac catheterization this morning which showed an ejection fraction of 60%, left main disease of 30%, the proximal LAD 90%, circumflex was 40% and the RCA 95%. We were consulted to evaluate for coronary artery bypass grafting. PAST MEDICAL HISTORY: Includes hyperlipidemia, hypertension, diabetes mellitus on oral medication. 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 01/10 appreciate assistance from Hematology, Factor 9 lab pending will schedule for surgery once cleared by Donn/ Dr Zapien spoke with pt and daughter no chest pain last night 01/11 waiting on facto 9 lab results/ spoke with Donn ALUMINUM CAN COLLECTOR, may not be available until tuesday apparently this is a x-linked mutation. discussed that the only way to have obtained it is if his mother was a carrier ( per Donn ) pt anxious to proceed with surgery 01/12 scheduled for surgery in am Objective: GENERAL: SKIN: Warm and dry. HEAD: Normocephalic. EYES: No scleral icterus. No injection or drainage. NECK: Supple, trachea midline. No JVD or lymphadenopathy. CARDIOVASCULAR: Regular rate and rhythm without murmurs, gallops, or rubs. RESPIRATORY: Breath sounds equal bilaterally. No accessory muscle use. GASTROINTESTINAL: Abdomen soft, non-tender, nondistended. MUSCULOSKELETAL: No cyanosis, or edema. BACK: Nontender without obvious deformity. No CVA tenderness. Vital Signs Date Time Temp Pulse Resp B/P (MAP) Pulse Ox O2 Delivery O2 Flow Rate FiO2 01/12/18 12:20 73 01/12/18 11:00 99.0 65 18 136/79 (98) 97 01/12/18 11:00 63 01/12/18 10:00 66 01/12/18 09:55 97 21 01/12/18 09:00 68 4/19/18 08:00 72 01/12/18 07:00 99.0 80 18 147/90 (109) 98 01/12/18 07:00 66 01/12/18 04:01 69 01/12/18 04:00 98.1 66 20 133/79 (97) 97 01/12/18 00:01 62 01/12/18 00:00 98.2 70 20 140/79 (99) 99 01/11/18 20:03 73 01/11/18 20:00 98.9 75 22 165/91 (115) 98 01/11/18 19:44 100 01/11/18 18:00 74 01/11/18 17:00 68 01/11/18 16:00 66 01/11/18 15:30 97.9 72 18 139/80 (99) 100 01/11/18 15:00 65 Result Diagram: 01/11/18 0619 01/10/18 0525 (1) NSTEMI (non-ST elevated myocardial infarction) Plan: Severe 2 vessel CAD on cath . Stable overnight. No further angina. EF normal by cath and echo. for surgery in am (2) Hypertension Plan: Fluctuating BP's. Rec continue to monitor. (3) Hyperlipidemia Plan: Suboptimal LDL level. Desirable <<< 70. Continue atorvastatin at higher dosing. Problem Qualifiers (1) Hypertension: Qualified Codes: I10 - Essential (primary) hypertension (2) Hyperlipidemia: Qualified Codes: E78.00 - Pure hypercholesterolemia, unspecified Betty Sloan Jan 12, 2018 14:50
--- NOTE | 2018-01-12 18:17 | HHI.PR ---
Subjective Remarks Patient states that his father has factor IX deficiency, but he learned recently that this is an X-linked chromosome which makes the possibility of him having it nearly impossible. Objective Vitals Vital Signs Date Time Temp Pulse Resp B/P (MAP) Pulse Ox O2 Delivery O2 Flow Rate FiO2 01/12/18 15:00 98.3 80 18 156/85 (108) 97 01/12/18 15:00 77 01/12/18 14:00 68 01/12/18 13:00 64 01/12/18 12:20 73 01/12/18 11:00 99.0 65 18 136/79 (98) 97 01/12/18 11:00 63 01/12/18 10:00 66 01/12/18 09:55 97 21 01/12/18 09:00 68 01/12/18 08:00 72 01/12/18 07:00 99.0 80 18 147/90 (109) 98 01/12/18 07:00 66 01/12/18 04:01 69 01/12/18 04:00 98.1 66 20 133/79 (97) 97 01/12/18 00:01 62 01/12/18 00:00 98.2 70 20 140/79 (99) 99 01/11/18 20:03 73 01/11/18 20:00 98.9 75 22 165/91 (115) 98 01/11/18 19:44 100 I/O 01/11/18 01/11/18 01/11/18 01/12/18 01/12/18 01/12/18 07:00 15:00 23:00 07:00 15:00 23:00 Intake Total 480 ml 840 ml 240 ml Output Total 1200 ml 1200 ml Balance -720 ml -360 ml 240 ml Intake Oral 480 ml 840 ml 240 ml Output Urine Total 1200 ml 1200 ml # Voids 3 # Bowel Movements 1 1 Result Diagram: 01/11/18 0619 01/10/18 0525 Objective Remarks GENERAL: Obese man who is lying comfortably in bed SKIN: Warm and dry. HEAD: Normocephalic. EYES: No scleral icterus. No injection or drainage. NECK: Supple, trachea midline. No JVD or lymphadenopathy. CARDIOVASCULAR: Regular rate and rhythm without murmurs, gallops, or rubs. RESPIRATORY: Breath sounds equal bilaterally. No accessory muscle use. GASTROINTESTINAL: Abdomen soft, non-tender, nondistended. EXTREMITIES: No cyanosis, or edema. NEUROLOGICAL: Awake, alert, and oriented x 3. Non-focal. A/P Problem List: (1) NSTEMI (non-ST elevated myocardial infarction) ICD Code: I21.4 - Non-ST elevation (NSTEMI) myocardial infarction Status: Acute (2) Hypertension ICD Code: I10 - Essential (primary) hypertension Status: Chronic (3) Obese ICD Code: E66.9 - Obesity, unspecified (4) Hyperlipidemia ICD Code: E78.5 - Hyperlipidemia, unspecified Status: Chronic (5) Diabetes ICD Code: E11.9 - Type 2 diabetes mellitus without complications Assessment and Plan NSTEMI Cardiac catheterization revealed extensive disease in the RCA and LAD that was not able to be fixed with stenting Coronary bypass surgery scheduled for tomorrow Continue beta-keila, PADMINI inhibitor, aspirin Appreciate cardiothoracic surgery consult Appreciate cardiology consult Appreciate hematology consult h/o Factor IX abnormality Factor IX level ordered with general coagulopathy panel Per [facility] this laboratory level could take until Tuesday to return Factor IX deficiency is an X-linked chromosome, therefore if his father has it he likely does not (Y chromosome from father) Appreciate Oncology's assistance with clearing of the details of this condition Open heart surgery scheduled for tomorrow Hypertension, hyperlipidemia Continue home medications Type 2 diabetes Sliding scale insulin coverage with Accu-Cheks Diabetic diet DVT prophylaxis Heparin Problem Qualifiers (1) Hypertension: Qualified Codes: I10 - Essential (primary) hypertension (2) Hyperlipidemia: Qualified Codes: E78.00 - Pure hypercholesterolemia, unspecified Ray Borrego MD Jan 12, 2018 18:17
[2018-01-13] VITALS (17 sets, daily range): BP systolic 101–146; BP diastolic 61–84; PULSE 58–79; RESP 14–18; TEMP 97.5–98.4; O2SAT 92–99
[2018-01-13] MEDS: NITROGLYCERIN 2% OINT 1 GM PACKET TOP SCH (05:05)
[2018-01-13] MEDS: CARVEDILOL 3.125 MG TAB PO SCH (05:05)
[2018-01-13] MEDS ORDERED: METOPROLOL TARTRATE 25 MG TAB PO PRN (06:00)
[2018-01-13] MEDS ORDERED: CHLORHEXIDINE GLUCONATE 2 % 1 PACK (2 CLOTHS) TOPICAL PRN (06:00)
[2018-01-13] MEDS ORDERED: LACTATED RINGER'S 1000 ML IV PRN (06:00)
[2018-01-13] MEDS ORDERED: POVIDONE IODINE 5% (ANTISEPSIS KIT) 4 APPLICATIONS EACH NARE PRN (06:00)
[2018-01-13] MEDS ORDERED: methylPREDNISolone SOD SUCC 125 MG/2 ML VIAL ONE (06:13)
[2018-01-13] MEDS ORDERED: ceFAZolin 2 GM PREMIX 50 ML ONE (06:13)
[2018-01-13] MEDS ORDERED: HEPARIN SODIUM - SQ 10,000 UNITS/ML VIAL ONE (06:13)
[2018-01-13] MEDS ORDERED: VANCOMYCIN HCL 1000 MG VIAL ONE (06:13)
[2018-01-13] MEDS ORDERED: CARDIOPLEGIC IRR 2,000 ML ONE (06:51)
[2018-01-13] MEDS ORDERED: POTASSIUM CHLOR 40 MEQ PREMIX 200 ML ONE (06:52)
[2018-01-13] MEDS ORDERED: MANNITOL INJ 100 ML ONE (06:52)
[2018-01-13] MEDS ORDERED: HEPARIN SODIUM - IV 10,000 UNITS/10 ML VIAL ONE (06:53)
[2018-01-13] MEDS ORDERED: ALBUMIN 25% INJ 50 ML IV ONE (06:54)
[2018-01-13] MEDS ORDERED: VECURONIUM BROMIDE 20 MG VIAL ONE (08:49)
[2018-01-13] MEDS: amLODIPine BESYLATE 5 MG TAB PO SCH (09:00)
[2018-01-13] MEDS: DOCUSATE SODIUM 50 MG/SENNA 8.6 MG TAB PO SCH ×2 (09:00→21:15)
[2018-01-13] MEDS: ATORVASTATIN 40 MG TAB PO SCH (09:00)
[2018-01-13] MEDS ORDERED: ceFAZolin INJ 1,000 MG VIAL ONE (11:24)
[2018-01-13] MEDS ORDERED: CALCIUM CHLORIDE INJ 1 GM in SODIUM CHLORIDE 0.9% INJ 100 ML IV PRN (11:45)
[2018-01-13] MEDS ORDERED: POTASSIUM CHLORIDE 20 MEQ CONTROLLED RELEASE TAB PO PRN ×2 (11:45)
[2018-01-13] MEDS ORDERED: SODIUM CHLORIDE 0.9% FLUSH 10 ML FLUSH IV FLUSH PRN (11:45)
[2018-01-13] MEDS ORDERED: CALCIUM CHLORIDE 10% 1 GRAM/10 ML VIAL IV PUSH PRN (11:45)
[2018-01-13] MEDS ORDERED: ACETAMINOPHEN 325 MG TAB PO PRN (11:45)
[2018-01-13] MEDS ORDERED: MAGNESIUM SULFATE INJ 2 GM in SODIUM CHLORIDE 0.9% INJ 100 ML IV PRN ×4 (11:45)
[2018-01-13] MEDS ORDERED: RESP: RACEPINEPHRINE 2.25% 0.5 ML NEB NEB PRN (11:45)
[2018-01-13] MEDS ORDERED: ACETAMINOPHEN 650 MG SUPP RECTAL PRN (11:45)
[2018-01-13] MEDS ORDERED: Post-op Orders (for Pharmacy) OTHER ONE (11:45)
[2018-01-13] MEDS ORDERED: CLEVIDIPINE INJ 50 ML IV PRN (11:45)
[2018-01-13] MEDS ORDERED: RESP: ALBUTEROL 2.5 MG/IPRATROPIUM 0.5 MG NEB (PRN) NEB (11:45)
[2018-01-13] MEDS ORDERED: DEXTROSE 50% IN WATER 50 ML VIAL(D50) IV PUSH PRN (11:45)
[2018-01-13] MEDS ORDERED: DEXMEDETOMIDINE INJ 200 MCG in SODIUM CHLORIDE 0.9% INJ 50 ML IV PRN (11:45)
[2018-01-13] MEDS ORDERED: METOPROLOL TARTRATE 5 MG/5 ML VIAL IV PUSH PRN (11:45)
[2018-01-13] MEDS ORDERED: hydrALAZINE HCL 20 MG/ML VIAL IV PUSH PRN (11:45)
[2018-01-13] MEDS ORDERED: ONDANSETRON HCL 4 MG/2 ML VIAL IV PUSH PRN (11:45)
[2018-01-13] MEDS ORDERED: SODIUM BICARBONATE 8.4% SOLN 50 MEQ/50 ML VIAL IV PUSH PRN ×2 (11:45)
[2018-01-13] MEDS ORDERED: POTASSIUM CHLOR 20 MEQ PREMIX 100 ML IV PRN ×3 (11:45)
[2018-01-13] MEDS ORDERED: HEPARIN SODIUM - SQ 10,000 UNITS/ML VIAL OTHER ONE (12:00)
[2018-01-13] MEDS ORDERED: MAGNESIUM SULFATE 1 GM/2 ML VIAL IV ONE (12:00)
[2018-01-13] MEDS ORDERED: VECURONIUM BROMIDE 10 MG VIAL IV ONE (12:00)
[2018-01-13] MEDS ORDERED: PROPOFOL 500 MG/50 ML BTL IV ONE (12:00)
[2018-01-13] MEDS ORDERED: SODIUM CHLOR 0.9% 250 ML INJ 250 ML IV ONE (12:00)
[2018-01-13] MEDS ORDERED: DEXMEDETOMIDINE HCL 200 MCG/2 ML VIAL IV ONE (12:00)
[2018-01-13] MEDS ORDERED: PHENYLEPH/NS 1000 MCG/10 ML SYR IV ONE (12:00)
[2018-01-13] MEDS ORDERED: SODIUM CHLOR 0.9% 1000 ML INJ 2,000 ML IV ONE (12:00)
[2018-01-13] MEDS ORDERED: PROTAMINE SULFATE 250 MG/25 ML VIAL IV ONE (12:00)
[2018-01-13] MEDS ORDERED: SODIUM BICARBONATE 8.4% INJ 50 MEQ/50 ML SYR IV ONE (12:00)
[2018-01-13] MEDS ORDERED: ePHEDrine/NS 25 MG/5 ML SYRINGE IV ONE (12:00)
[2018-01-13] MEDS ORDERED: CALCIUM CHLORIDE 10% SOLN 1 GRAM/10 ML SYR IV ONE (12:00)
[2018-01-13] MEDS ORDERED: PHENYLEPHRINE HCL 10 MG/ML VIAL IV ONE (12:00)
[2018-01-13] MEDS ORDERED: NS 100 ML (PAB BAG) 100 ML IV ONE (12:00)
[2018-01-13] MEDS ORDERED: LIDOCAINE HCL 1% PF 5 ML SYRINGE OTHER ONE (12:00)
[2018-01-13] MEDS ORDERED: AMINOCAPROIC ACID INJ 250 MG/ML 20 ML VIAL IV ONE (12:00)
--- NOTE | 2018-01-13 12:03 | PD.OP ---
cc: Kelsea Zapien MD; MaldonadoAbebe winters Marlene Operative Report Date of Surgery: Jan 13, 2018 Preoperative Diagnosis: (1) Morbid obesity (2) NSTEMI (non-ST elevated myocardial infarction) (3) CAD (coronary artery disease) Postoperative Diagnosis: same Procedure: CABG x 2 MIRELES to LAD - good SVG to PDA - good EVH External fixation of the sternum with plates Anesthesia: Dr. Reed Surgeon: Kelsea Zapien Client Services Administrator(s): HOWIE Dennsi Operation and Findings: The risks, benefits, complications, treatment options, and expected outcomes were discussed with the patient. The possibilities of reaction to medication, pulmonary aspiration, perforation of viscus, bleeding, recurrent infection, the need for additional procedures, failure to diagnose a condition, and creating a complication requiring transfusion or operation were discussed with the patient. The patient concurred with the proposed plan, giving informed consent. The site of surgery properly noted/marked. The patient was taken to Operating Room, identified as Bird Rodriguez and the procedure verified as CABG, EVH. A Time Out was held and the above information confirmed. Standard monitoring lines and Gamez catheter were placed. General anesthesia was induced. The patient was prepped and draped in a sterile fashion. A median sternotomy was performed and electrocautery was used to obtain hemostasis. The left internal mammary artery was procured as a pedicle from the 7th rib to the 1st rib in the usual manner. Simultaneously left greater saphenous vein was procured from the left leg using a minimally invasive endoscopic technique. The vein was prepared for anastomosis and the leg wound was irrigated and closed in 2 layers. The pericardium was opened and a pericardial sling was created using interrupted 0 silk sutures. The patient was heparinized for cardiopulmonary bypass and the distal mammary pedicle was instrumented for anastomosis. The heart was instrumented for cardiopulmonary bypass in the usual manner. Antegrade blood cardioplegia was employed. The patient was placed on cardiopulmonary bypass. An aortic cross-clamp was applied and the heart was arrested using cold blood cardioplegia. Antegrade cardioplegia was administered after he each anastomosis. After adequate arrest, the distal right coronary circulation was investigated and the PDA was opened with a [place] blade and found to be a 1.5 millimeter good target. Saphenous vein was approximated to the PDA artery using a running 7 0 Prolene suture. The graft was measured for length and orientation and was suspended from the pericardium. The distal LAD was opened with a [place] blade and found to be a 1.5 millimeter good target. The left internal mammary artery was approximated to the LAD using a running 7 0 Prolene suture. The pedicle was attached to the epicardium using interrupted 5 0 silk suture. The patient was systemically rewarmed and received a hotshot dose of warm blood cardioplegia. The aorta was vented and the proximal anastomosis to the PDA graft was accomplished using a running 5 0 Prolene suture after creating an aortotomy was a 5 millimeter punch. The cross-clamp was removed and all proximal and distal anastomoses were examined for hemostasis. The patient was weaned from cardiopulmonary bypass. Protamine was given. There was no adverse reaction. Decannulation was carried out without incident. Wound was checked for hemostasis which was obtained using electrocautery. A 36 Italian mediastinal and 32 Italian left pleural chest was were placed and secured to the skin with 0 silk suture. The sternum was closed with stainless steel wire and a sternal plating system due to the patient's morbid obesity. . The fascia was closed with 1. PDS. The subcutaneous tissue was closed using a running 2-0 Vicryl suture. The skin was closed with 4-0 Monocryl. Sterile dressings were placed. At the end of the operation, all sponge, instruments, and needle counts were correct. The patient was transferred to the CVICU in stable condition. Findings: good distal targets, technically more difficult secondary to patient's body habitus XC: 36 min CPB: 43 min Drains: mediastinal x 1 pleural x 1 Complications: none Disposition: to CVICU in stable condition Kelsea Zapien MD Jan 13, 2018 12:03
--- NOTE | 2018-01-13 13:03 | HHI.FF ---
Face to Face Verification Diagnosis: (1) Chest pain (2) Diabetes (3) Obese (4) Hyperlipidemia (5) Hypertension (6) NSTEMI (non-ST elevated myocardial infarction) (7) Morbid obesity Home Health Nursing Order: Signs/symptoms of disease process Medication education-adverse effect Wound care and dressing changes Nursing assessment with vital signs Instructions: Heart and Vascular Surgery patients *Special attention to sternal dressing Mandatory frequency Assess and evaluation, 4 days in a row The next week 3X week 2 times a week for 4 weeks 1 time a week for 5 weeks Schedule Heart and Vascular patients for full 60 day certification period Initial visit Review Open Heart Surgery Discharge Instructions (Sternal precautions, Activity, Elastic hose, Incision care, Driving, Incentive spirometry, Smoking, [place], Work and other) Need Betadine to paint incision Medication reconciliation Importance of follow up care/ check on appointments Make calendar record temperature daily When to call [facility] nurse, review instructions, phone list Incentive Spirometry, demonstration Visit 1- Begin discharge instruction for patient family and/ or caregiver using teach back method- Signs and symptoms of infection Disease characteristics Medicines and side effects Foods and nutrition/ appetite Infection control/ hand washing/ hygiene Visit 2- Continue teaching Discharge instructions- include additional information on smoking cessation , sternal dressing (sternal vac) Visit 3- Continue teaching- Cough and deep breathing, incision monitoring. Choose my plate Visit 4- Continue teaching- Discuss limitations Discuss how they are feeling Discuss progress toward goals Remaining visits- continue teaching and monitoring For any questions please call : Tuesday 8am-5pm Heart & Vascular Surgery Office ( Dr. Watson & Dr. Zapien), After Hours / Nights (5pm -8am) Weekends and Holidays Please call [facility] Card[facility] ([facility]) Charge Nurse PREVENA Single Use Negative Wound Therapy System Caregiver Instruction Sheet 1. A Prevena dressing system was applied to the chest incision during surgery , to promote wound healing. It works via a suction device (negative pressure wound therapy) to remove low to moderate levels of exudate (drainage) and infectious materials. We recommend that the device stay in place for up to seven days, from day of surgery. 2. Day of Surgery____4/ Day of Removal ____4/ 3. The dressing should only be removed by a health home care coordinator. Please arrange removal of device to coincide with Home Health visit and or with Nursing staff at Rehab 4. If skin reddening or irritation of skin occurs, or excessive drainage, please notify the Cardiovascular Surgeons office at [phone]. 5. Light showering is permissible; however the pump should be disconnected and placed in safe location, where it will not get wet. The dressing should not be exposed to direct spray or submerged in water. No bath tub / shower only. Ensure the end of the tubing attached to the dressing is facing down so that water does not enter the top of the tube. 6. To remove Prevena dressing: press purple button to turn off device / remove the suction. Then disconnect the tubing from the pump. The fixation strips should be stretched away from the skin and the dressing lifted at one corner and peeled back until it has been fully removed. 7. After removal, it is ok to shower daily using liquid dial soap and clean wash cloth, rinse and pat dry, and leave incision open to air dry. For any concerns regarding Prevena dressing, and or wounds, please contact Xin Gusman, patient navigator at [phone] or notify the Cardiovascular Surgeons office at [phone]. Incentive spirometry Q1 hr x 10, while awake, also use acapella device hourly whole awake Sternal Breast Bone Precautions: NO pushing or pulling, ( pt must use sternal pillow to support chest with all activities and with coughing ( takes up to 3 months breast bone to heal ) All females to wear sternal bra , launder as needed Daily incision care: ok to shower daily, no tub bath. Wash all incisions with liquid dial soap, clean wash cloth to each site, rinse and pat dry. Observe for any signs of infection, such as drainage which is dark yellow, russo, green or foul smelling. Immediately report to the surgeon any drainage from the chest incision, or legs, and for any abnormal drainage from the chest tube sites. Notify surgeon if any temp >101.5 degrees F. When specialty dressing removed/ or if you do not have one, continue to shower daily as above, then rinse and pat incision dry and paint with betadine daily x 5 days. Allow steri strips to fall off if you have any. Avoid lotions, creams, salves, oils, etc. for the first month Please see attached forms for additional instructions regarding post Open Heart specialty wound vacuum dressings. JOHN or Prevena , Dressing to be removed by Nursing staff on _01/20/[address] Zapien patients , please obtain CBC, BMP, PA & Lat CXR in 2 weeks, results to Dr. Zapien ( prescription will be given) ( ) (Tele: [phone]) , F/U appointment: as per DC instructions: PCP in 2 weeks, CV surgeon 2 weeks, Electrician Outside 3-4 weeks For any questions regarding incisions/ dressing / meds / post op care or above Symptoms, Tuesday 8am-5pm Heart & Vascular Surgery Office ( Dr. Watson & Dr. Zapien), After Hours / Nights (5pm -8am) Weekends and Holidays Please call [facility] Cardiac [facility] Unit ([facility]IC) Charge Nurse I have seen patient Bird Rodriguez on 01/13/18. My clinical findings support the need for the requested home health care services because: Deconditioned w/ increased weakness I certify that my clinical findings support that this patient is homebound because: Post-op weakness Betty Sloan Jan 13, 2018 13:03
[2018-01-13] MEDS ORDERED: fentaNYL CITRATE 250 MCG/5 ML AMP ONE (13:07)
[2018-01-13] MEDS ORDERED: MIDAZOLAM HCL 2 MG/2 ML VIAL ONE ×2 (13:07)
[2018-01-13] MEDS: METOCLOPRAMIDE HCL 10 MG/2 ML VIAL IV PUSH SCH ×3 (13:10→21:15)
[2018-01-13] MEDS: LACTATED RINGER'S 1000 ML INJ 500 ML IV PRN ×2 (13:11→17:53)
[2018-01-13] MEDS: ALBUMIN 5% INJ 250 ML IV PRN (13:11)
--- NOTE | 2018-01-13 13:15 | RADRPT ---
EXAM DATE/TIME: 01/13/2018 12:42 [facility] COMPARISON: CHEST SINGLE AP, January 08, 2018, 3:23. INDICATIONS : Post CABG MEDICAL HISTORY : Hypertension. SURGICAL HISTORY : CABG ENCOUNTER: Subsequent ACUITY: 1 day PAIN SCORE: Non-responsive. LOCATION: Bilateral chest FINDINGS: A single view of the chest demonstrates diminished lung volumes. Minimal left basilar density. Right lung relatively clear. Endotracheal tube with tip 4.5 cm above the regino. Nasogastric tube with tip in the distal esophagus. Left-sided chest tube without pneumothorax.. Osseous structures are intact. CONCLUSION: 1. Status post CABG. 2. Nasogastric tube with tip in distal esophagus. 3. Left basilar atelectasis. Christopher Almanza MD on January 13, 2018 at 13:06 Board Certified Radiologist. This report was verified electronically.
--- NOTE | 2018-01-13 13:29 | PD.ONC.PN ---
Subjective Subjective Remarks Afebrile overnight. Patient is intubated, but awake, s/p CABG this AM. No bleeding complications during surgery per nursing staff. Objective Data Date Time Temp Pulse Resp B/P (MAP) Pulse Ox O2 Delivery O2 Flow Rate FiO2 01/13/18 12:25 95 50 01/13/18 05:01 98.2 68 18 136/84 (101) 99 01/13/18 05:00 70 01/13/18 04:01 62 01/13/18 03:00 66 01/13/18 02:00 58 01/13/18 01:00 60 01/13/18 00:00 70 01/13/18 00:00 98.4 72 18 140/76 (97) 99 01/12/18 23:00 90 01/12/18 22:00 72 01/12/18 21:42 98.3 70 18 141/79 (99) 99 01/12/18 21:00 70 01/12/18 20:00 70 01/12/18 19:54 99 21 01/12/18 19:00 82 01/12/18 18:00 70 01/12/18 17:00 66 01/12/18 16:00 74 01/12/18 15:00 98.3 80 18 156/85 (108) 97 01/12/18 15:00 77 01/12/18 14:00 68 01/13/18 01/13/18 01/13/18 07:00 15:00 23:00 Intake Total 240 ml 3900 ml Output Total 750 ml Balance 240 ml 3150 ml Result Diagram: 01/11/18 0619 01/10/18 0525 Imaging Studies Last 24 hours Impressions Chest X-Ray 01/13/18 0000 Signed Impressions: Service Date/Time: Saturday, January 13, 2018 12:42 - CONCLUSION: 1. Status post CABG. 2. Nasogastric tube with tip in distal esophagus. 3. Left basilar atelectasis. Christopher Almanza MD Administered Medications Medications (Trade) Dose Ordered Sig/Jose Route PRN Reason Start Time Stop Time Status Last Admin Dose Admin Senna/Docusate Sodium (Rosa-Colace) 1 tab BID PO 01/08/18 21:00 01/10/18 08:52 Atorvastatin Calcium (Lipitor) 40 mg DAILY PO 01/09/18 09:00 01/12/18 08:14 Lisinopril (Prinivil) 20 mg DAILY PO 01/09/18 09:00 Future Hold 01/09/18 09:56 Papaverine HCl 60 mg/Nitroglycerin 100 mcg/Verapamil HCl 100 mg/Sodium Chloride 100 ml @ 0 mls/hr DIRECTOR OF PLANNING IRRIGATION 01/09/18 12:00 01/16/18 11:59 01/13/18 09:30 Cefazolin Sodium 500 mg/Sodium Chloride 505 ml @ 0 mls/hr DIRECTOR OF PLANNING IRRIGATION 01/09/18 12:00 01/16/18 11:59 01/13/18 09:29 Amlodipine Besylate (Norvasc) 5 mg DAILY PO 01/10/18 09:00 01/12/18 08:15 Albumin Human 250 ml @ 250 mls/hr UNSCH PRN IV SEE LABEL COMMENTS 01/13/18 11:45 01/13/18 13:11 Lactated Ringer's 500 ml @ 500 mls/hr Q1H PRN IV SEE LABEL COMMENTS 01/13/18 11:38 01/13/18 13:11 Metoclopramide HCl (Reglan Inj) 10 mg ACHS IV PUSH 01/13/18 12:30 01/13/18 13:10 Calcium Chloride 1 gm/Sodium Chloride 110 ml @ 100 mls/hr UNSCH PRN IV SEE LABEL COMMENTS 01/13/18 11:45 01/13/18 13:10 Objective Remarks GENERAL: Intubated, male, supine in bed. SKIN: Warm and dry. HEAD: Normocephalic. EYES: No injection or drainage. NECK: Supple, trachea midline. CARDIOVASCULAR: Regular rate and rhythm RESPIRATORY: anterior gaviria clear. GASTROINTESTINAL: Abdomen nondistended. EXTREMITIES: No cyanosis NEUROLOGICAL: awake, intubated, following commands. 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 will continue to monitor, see as needed. --patient has never been tested for factor IX deficiency --no personal h/o excess bleeding --per father multiple men on paternal side of family (several of patient's father's brothers, i.e. uncles) with factor IX deficiency --father was diagnosed after car accident. (2) CAD (coronary artery disease) ICD Codes: I25.10 - Atherosclerotic heart disease of [place] coronary artery without angina pectoris Plan: --s/p CABG --RCA not stentable. Assessment 52y/o male with severe CAD. 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 h/o Hypertension, diabetes mellitus, hypercholesterolemia, morbid obesity. Attending Statement The exam, history, and the medical decision-making described in the above note were completed with the assistance of the mid-level provider. I reviewed and agree with the findings presented. I attest that I had a [id number] encounter with the patient on the same day, and personally performed and documented my assessment and findings in the medical record. Pt just came to CVICU from OR. Intubated , on vent No excessive bleeding per nursing staff. will follow Marilee Adams Jan 13, 2018 13:29 Quita Driver MD Jan 13, 2018 20:49
[2018-01-13] MEDS: ACETAMINOPHEN 1000 MG/100 ML 100 ML IV SCH ×2 (13:54→20:09)
[2018-01-13] MEDS: INSULIN REGULAR (IV INFUSION) 100 UNITS in SODIUM CHLORIDE 0.9% INJ 99 ML IV PRN ×2 (15:00→16:00)
[2018-01-13] MEDS: oxyCODONE/ACETAMINOPHEN 10 MG/325 MG TAB PO PRN ×2 (15:07→23:51)
[2018-01-13] MEDS: AMIODARONE 200 MG TAB PO SCH ×2 (15:07→21:15)
--- NOTE | 2018-01-13 18:30 | HHI.PR ---
Subjective Remarks Patient is awake following open heart surgery. He requests to be shifted in bed. He does not complain about any excessive pain. Objective Vitals Vital Signs Date Time Temp Pulse Resp B/P (MAP) Pulse Ox O2 Delivery O2 Flow Rate FiO2 01/13/18 17:51 95 Nasal Cannula 2.00 01/13/18 16:00 79 01/13/18 16:00 97.8 75 14 116/76 (89) 96 124/66 (85) 01/13/18 16:00 16 01/13/18 15:00 97.8 01/13/18 14:30 16 01/13/18 14:05 96 Nasal Cannula 4.00 01/13/18 14:00 95 Nasal Cannula 4 01/13/18 14:00 40 01/13/18 13:35 Nasal Cannula 40 01/13/18 12:30 70 01/13/18 12:30 97.9 01/13/18 12:30 97.9 70 14 101/64 (76) 95 115/62 (79) 01/13/18 12:30 50 01/13/18 12:25 95 50 01/13/18 05:01 98.2 68 18 136/84 (101) 99 01/13/18 05:00 70 01/13/18 04:01 62 01/13/18 03:00 66 01/13/18 02:00 58 01/13/18 01:00 60 01/13/18 00:00 70 01/13/18 00:00 98.4 72 18 140/76 (97) 99 01/12/18 23:00 90 01/12/18 22:00 72 01/12/18 21:42 98.3 70 18 141/79 (99) 99 01/12/18 21:00 70 01/12/18 20:00 70 01/12/18 19:54 99 21 01/12/18 19:00 82 I/O 01/12/18 01/12/18 01/12/18 01/13/18 01/13/18 01/13/18 07:00 15:00 23:00 07:00 15:00 23:00 Intake Total 240 ml 980 ml 240 ml 4850 ml 1050 ml Output Total 1100 ml 750 ml 1400 ml Balance 240 ml -120 ml 240 ml 4100 ml -350 ml Intake Oral 240 ml 980 ml 240 ml 250 ml IV Total 950 ml 800 ml Autotransfusion 800 ml Other 3100 ml Output Urine Total 1100 ml 550 ml 1100 ml Gastric Drainage Total 0 ml Chest Tube Drainage Total 300 ml Estimated Blood Loss 200 ml # Voids 3 2 # Bowel Movements 0 Result Diagram: 01/11/18 0619 01/10/18 0525 Objective Remarks GENERAL: Obese man who underwent open heart surgery SKIN: Vertical incision under surgical bandage HEAD: Normocephalic. EYES: No scleral icterus. No injection or drainage. NECK: Supple, trachea midline. No JVD or lymphadenopathy. CARDIOVASCULAR: Regular rate and rhythm without murmurs, gallops, or rubs. RESPIRATORY: Breath sounds equal bilaterally. No accessory muscle use. GASTROINTESTINAL: Abdomen soft, non-tender, nondistended. EXTREMITIES: No cyanosis, or edema. NEUROLOGICAL: Awake, alert, and oriented x 3. Non-focal. A/P Problem List: (1) NSTEMI (non-ST elevated myocardial infarction) ICD Code: I21.4 - Non-ST elevation (NSTEMI) myocardial infarction Status: Acute (2) Hypertension ICD Code: I10 - Essential (primary) hypertension Status: Chronic (3) Obese ICD Code: E66.9 - Obesity, unspecified (4) Hyperlipidemia ICD Code: E78.5 - Hyperlipidemia, unspecified Status: Chronic (5) Diabetes ICD Code: E11.9 - Type 2 diabetes mellitus without complications Assessment and Plan NSTEMI Cardiac catheterization revealed extensive disease in the RCA and LAD that was not able to be fixed with stenting Coronary bypass surgery performed today, patient doing well postop Continue beta-keila, PADMINI inhibitor when p.o. 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
[2018-01-13] MEDS: ceFAZolin 2 GM PREMIX 50 ML IV SCH (20:09)
[2018-01-13] MEDS: SODIUM CHLORIDE 0.9% FLUSH 10 ML FLUSH IV FLUSH SCH (21:00)
[2018-01-14] VITALS (11 sets, daily range): BP systolic 84–124; BP diastolic 44–70; PULSE 63–96; RESP 16–18; TEMP 97.9–98.7; O2SAT 90–97
[2018-01-14] MEDS: ACETAMINOPHEN 1000 MG/100 ML 100 ML IV SCH ×2 (02:00→09:37)
[2018-01-14] MEDS: ceFAZolin 2 GM PREMIX 50 ML IV SCH ×3 (04:00→21:27)
[2018-01-14 04:46] LABS: HEMATOCRIT 36.3 % (39.0-51.0); HEMOGLOBIN 12.3 GM/DL (13.0-17.0); MEAN CELL VOLUME 81.2 FL (80.0-100.0); MEAN CORPUSCULAR HEMOGLOBIN 27.6 PG (27.0-34.0); MEAN PLATELET VOLUME 9.5 FL (7.0-11.0); PLATELET COUNT 160 TH/MM3 (150-450); RED BLOOD COUNT 4.46 MIL/MM3 (4.50-5.90); RED CELL DISTRIBUTION WIDTH 14.9 % (11.6-17.2); WHITE BLOOD COUNT 10.9 TH/MM3 (4.0-11.0)
[2018-01-14 05:00] LABS: BICARBONATE 25.1 MEQ/L (21.0-32.0); CALCIUM 8.6 MG/DL (8.5-10.1); CREATININE 1.19 MG/DL (0.60-1.30); MAGNESIUM 2.2 MG/DL (1.5-2.5)
--- NOTE | 2018-01-14 06:14 | RADRPT ---
EXAM DATE/TIME: 01/14/2018 05:08 [facility] COMPARISON: CHEST SINGLE AP, January 13, 2018, 12:42. INDICATIONS : Shortness of breath, possible pulmonary disease. MEDICAL HISTORY : Hypertension. SURGICAL HISTORY : CABG. ENCOUNTER: Subsequent ACUITY: 2 days PAIN SCORE: 8/10 LOCATION: Bilateral chest FINDINGS: Left thoracostomy tube and right-sided central line. Endotracheal tube and nasogastric tube have been removed. No pneumothorax. Low lung volumes noted. Bibasilar consolidation has progressed. No effusio ns. Heart is mildly enlarged. Median sternotomy wires. CONCLUSION: 1. Interval extubation. 2. Worsening bibasilar consolidations. 3. Cardiomegaly. Wallace Peraza Jr., MD on January 14, 2018 at 6:11 Board Certified Radiologist. This report was verified electronically.
[2018-01-14] MEDS: AMIODARONE 200 MG TAB PO SCH ×3 (06:18→21:28)
[2018-01-14] MEDS: oxyCODONE/ACETAMINOPHEN 10 MG/325 MG TAB PO PRN ×3 (06:18→18:00)
[2018-01-14] MEDS: PANTOPRAZOLE SOD 40 MG DELAYED RELEASE TAB PO SCH (06:18)
[2018-01-14] MEDS: ALBUMIN 5% INJ 250 ML IV PRN (07:07)
--- NOTE | 2018-01-14 08:03 | PD.CAR.PN ---
CVT Progress Note CVT: POD #: 1 Subjective/Hospital Course: A 52-year-old male admitted 01/08/2018 at 0700. Apparently woke up earlier that morning with chest pressure associated receive some aspirin and sublingual nitro with some relief. Chest pain occurred again. He was given some morphine and had an allergic reaction to the drug. He says he has had some chest discomfort over the past year, but with much less intensity. Denies any palpitations. No shortness of breath, no paroxysmal nocturnal dyspnea. He was found to have an acute non-ST segment CA, underwent cardiac catheterization this morning which showed an ejection fraction of 60%, left main disease of 30%, the proximal LAD 90%, circumflex was 40% and the RCA 95%. We were consulted to evaluate for coronary artery bypass grafting. PAST MEDICAL HISTORY: Includes hyperlipidemia, hypertension, diabetes mellitus on oral medication. 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 01/10 appreciate assistance from Hematology, Factor 9 lab pending will schedule for surgery once cleared by Donn/ Dr Zapien spoke with pt and daughter no chest pain last night 01/11 waiting on facto 9 lab results/ spoke with Donn [facility] SPECIALIST, may not be available until tuesday apparently this is a x-linked mutation. discussed that the only way to have obtained it is if his mother was a carrier ( per Donn ) pt anxious to proceed with surgery 01/12 scheduled for surgery in am 01/14/18 c/o being uncomfortable in chair. Objective: Vital Signs Date Time Temp Pulse Resp B/P (MAP) Pulse Ox O2 Delivery O2 Flow Rate FiO2 01/14/18 06:30 18 01/14/18 03:00 71 01/14/18 03:00 97.9 71 18 124/70 (88) 96 110/58 (75) 01/14/18 02:30 18 01/14/18 01:00 18 01/13/18 23:00 98.2 74 18 123/71 (88) 96 146/73 (97) 01/13/18 23:00 74 01/13/18 21:14 96 Nasal Cannula 4.00 01/13/18 19:00 74 01/13/18 19:00 97.5 74 18 128/77 (94) 92 117/61 (79) 01/13/18 17:51 95 Nasal Cannula 2.00 01/13/18 16:00 79 01/13/18 16:00 97.8 75 14 116/76 (89) 96 124/66 (85) 01/13/18 15:00 97.8 01/13/18 14:05 96 Nasal Cannula 4.00 01/13/18 14:00 95 Nasal Cannula 4 01/13/18 14:00 40 01/13/18 13:35 Nasal Cannula 40 01/13/18 12:30 70 01/13/18 12:30 97.9 01/13/18 12:30 97.9 70 14 101/64 (76) 95 115/62 (79) 01/13/18 12:30 50 01/13/18 12:25 95 50 Labs: Laboratory Tests Test 01/14/18 04:10 White Blood Count 10.9 TH/MM3 (4.0-11.0) Red Blood Count 4.46 MIL/MM3 (4.50-5.90) Hemoglobin 12.3 GM/DL (13.0-17.0) Hematocrit 36.3 % (39.0-51.0) Mean Corpuscular Volume 81.2 FL (80.0-100.0) Mean Corpuscular Hemoglobin 27.6 PG (27.0-34.0) Mean Corpuscular Hemoglobin Concent 34.0 % (32.0-36.0) Red Cell Distribution Width 14.9 % (11.6-17.2) Platelet Count 160 TH/MM3 (150-450) Mean Platelet Volume 9.5 FL (7.0-11.0) Blood Urea Nitrogen 14 MG/DL (7-18) Creatinine 1.19 MG/DL (0.60-1.30) Random Glucose 121 MG/DL (74-106) Calcium Level 8.6 MG/DL (8.5-10.1) Magnesium Level 2.2 MG/DL (1.5-2.5) Sodium Level 137 MEQ/L (136-145) Potassium Level 4.6 MEQ/L (3.5-5.1) Chloride Level 106 MEQ/L (98-107) Carbon Dioxide Level 25.1 MEQ/L (21.0-32.0) Anion Gap 6 MEQ/L (5-15) Estimat Glomerular Filtration Rate 78 ML/MIN (>89) Result Diagram: 01/14/18 0410 01/14/18409 Imaging: Last 24 hours Impressions Chest X-Ray 01/14/18 0500 Signed Impressions: Service Date/Time: Tuesday, January 14, 2018 05:08 - CONCLUSION: 1. Interval extubation. 2. Worsening bibasilar consolidations. 3. Cardiomegaly. Wallace Peraza Jr., MD Cardiovascular: RRR Telemetry: NSR Pulmonary: CTA GI/: NABS Incision: dry and intact CT: 250ml/12hrs Plan: Transfer to stepdown remove kerns advance diet Encourage ambulation Continue chest tubes Add Toradol for pain (1) NSTEMI (non-ST elevated myocardial infarction) Plan: Severe 2 vessel CAD on cath . Stable overnight. No further angina. EF normal by cath and echo. for surgery in am (2) Hypertension Plan: Fluctuating BP's. Rec continue to monitor. (3) Hyperlipidemia Plan: Suboptimal LDL level. Desirable <<< 70. Continue atorvastatin at higher dosing. Problem Qualifiers (1) Hypertension: Qualified Codes: I10 - Essential (primary) hypertension (2) Hyperlipidemia: Qualified Codes: E78.00 - Pure hypercholesterolemia, unspecified Kelsea Zapien MD Jan 14, 2018 08:03
[2018-01-14] MEDS ORDERED: DEXTROSE 50% IN WATER 50 ML VIAL(D50) IV PUSH PRN (08:15)
[2018-01-14] MEDS ORDERED: BISACODYL 10 MG SUPP RECTAL PRN (08:15)
[2018-01-14] MEDS ORDERED: SOD PHOSPHATE/SOD BIPHOSPHATE (ADULT) ENEMA 133ML RECTAL PRN (08:15)
[2018-01-14] MEDS ORDERED: GLUCAGON 1 MG/ML VIAL OTHER PRN (08:15)
[2018-01-14] MEDS: MULTIVITAMINS/MINERALS THERAPEUTIC TAB PO SCH (09:37)
[2018-01-14] MEDS: DOCUSATE SODIUM 50 MG/SENNA 8.6 MG TAB PO SCH ×2 (09:37→21:00)
[2018-01-14] MEDS: MAGNESIUM HYDROXIDE SUSP 30 ML CUP PO SCH (09:37)
[2018-01-14] MEDS: ATORVASTATIN 40 MG TAB PO SCH (09:38)
[2018-01-14] MEDS: ASPIRIN 81 MG CHEW TAB PO SCH (09:38)
[2018-01-14] MEDS: METOCLOPRAMIDE HCL 10 MG/2 ML VIAL IV PUSH SCH ×4 (09:39→21:00)
[2018-01-14] MEDS: SODIUM CHLORIDE 0.9% FLUSH 10 ML FLUSH IV FLUSH SCH ×2 (09:39→21:30)
[2018-01-14] MEDS: INSULIN ASPART SUPPLEMENTAL SCALE SQ SCH ×4 (11:08→22:05)
[2018-01-14] MEDS: KETOROLAC TROMETHAMINE 60 MG/2 ML (IM) VIAL IM SCH ×2 (11:10→17:59)
--- NOTE | 2018-01-14 17:28 | HHI.PR ---
Subjective Remarks Patient is up in chair today, pain seems well controlled, he is cognitively intact and return to his baseline regarding his mental status (no longer sedated ). He states he has already walked down the hallway and is able to get out of bed without assistance. Objective Vitals Vital Signs Date Time Temp Pulse Resp B/P (MAP) Pulse Ox O2 Delivery O2 Flow Rate FiO2 01/14/18 16:00 76 01/14/18 16:00 98.6 76 16 99/52 (68) 91 01/14/18 14:20 16 01/14/18 12:10 16 01/14/18 11:00 63 01/14/18 11:00 97.9 63 16 89/44 (59) 96 84/48 (60) 01/14/18 10:00 16 01/14/18 09:15 97 Nasal Cannula 3.00 01/14/18 08:00 63 01/14/18 08:00 97.9 63 16 89/44 (59) 96 84/48 (60) 01/14/18 06:30 18 01/14/18 03:00 71 01/14/18 03:00 97.9 71 18 124/70 (88) 96 110/58 (75) 01/13/18 23:00 98.2 74 18 123/71 (88) 96 146/73 (97) 01/13/18 23:00 74 01/13/18 21:14 96 Nasal Cannula 4.00 01/13/18 19:00 74 01/13/18 19:00 97.5 74 18 128/77 (94) 92 117/61 (79) 01/13/18 17:51 95 Nasal Cannula 2.00 I/O 01/13/18 01/13/18 01/13/18 01/14/18 01/14/18 01/14/18 07:00 15:00 23:00 07:00 15:00 23:00 Intake Total 240 ml 4850 ml 1050 ml 480 ml 400 ml 600 ml Output Total 750 ml 1400 ml 1540 ml 410 ml Balance 240 ml 4100 ml -350 ml -1060 ml 400 ml 190 ml Intake Oral 240 ml 250 ml 480 ml 600 ml IV Total 950 ml 800 ml 400 ml Autotransfusion 800 ml Other 3100 ml Output Urine Total 550 ml 1100 ml 1290 ml 350 ml Gastric Drainage Total 0 ml Chest Tube Drainage Total 300 ml 250 ml 60 ml Estimated Blood Loss 200 ml # Voids 2 # Bowel Movements 0 0 Result Diagram: 01/14/1840901/14/18409 Objective Remarks GENERAL: Obese man who underwent open heart surgery SKIN: Vertical incision under surgical bandage HEAD: Normocephalic. EYES: No scleral icterus. No injection or drainage. NECK: Supple, trachea midline. No JVD or lymphadenopathy. CARDIOVASCULAR: Regular rate and rhythm without murmurs, gallops, or rubs. RESPIRATORY: Breath sounds equal bilaterally. No accessory muscle use. GASTROINTESTINAL: Abdomen soft, non-tender, nondistended. EXTREMITIES: No cyanosis, or edema. NEUROLOGICAL: Awake, alert, and oriented x 3. Non-focal. A/P Problem List: (1) NSTEMI (non-ST elevated myocardial infarction) ICD Code: I21.4 - Non-ST elevation (NSTEMI) myocardial infarction Status: Acute (2) Hypertension ICD Code: I10 - Essential (primary) hypertension Status: Chronic (3) Obese ICD Code: E66.9 - Obesity, unspecified (4) Hyperlipidemia ICD Code: E78.5 - Hyperlipidemia, unspecified Status: Chronic (5) Diabetes ICD Code: E11.9 - Type 2 diabetes mellitus without complications Assessment and Plan NSTEMI s/p CABG 01/13 Cardiac catheterization revealed extensive disease in the RCA and LAD that was not able to be fixed with stenting Coronary bypass surgery performed 01/13/18, patient doing well postop Continue beta-keila, PADMINI inhibitor when p.o. 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, therefore if his father has it he likely does not (Y chromosome from father) Appreciate Oncology's assistance with clearing of the details of this condition Hypertension, hyperlipidemia Continue home medications Type 2 diabetes Sliding scale insulin coverage with Accu-Cheks Diabetic diet DVT prophylaxis Heparin Discharge planning Patient is doing very well with ambulation and will likely be a discharge home rather than going to rehab Problem Qualifiers (1) Hypertension: Qualified Codes: I10 - Essential (primary) hypertension (2) Hyperlipidemia: Qualified Codes: E78.00 - Pure hypercholesterolemia, unspecified Ray Borrego MD Jan 14, 2018 17:28
--- NOTE | 2018-01-14 18:47 | EKG ---
Date Performed: 01/14/2018 Time Performed: 03:55:36 PTAGE: 52 years EKG: CONSIDER ACUTE ST ELEVATION LA Sinus rhythm ST elevation suggestive of possible pericarditis, cannot exclude acute injury Inferior T wave abnorm ality, cannot exclude ischemia Compared to previous tracing, T wave changes inferiorly and the ST clare vation are new Abnormal ECG PREVIOUS TRACING : 01/08/2018 16.28 DOCTOR: Khadar Armenta Interpretating Date/Time 01/14/2018 18:46:13
[2018-01-14] MEDS: DOCUSATE SODIUM 100 MG CAP PO SCH (21:27)
[2018-01-14] MEDS: SENNOSIDES 8.6 MG TAB PO SCH (21:28)
[2018-01-14] MEDS: oxyCODONE/ACETAMINOPHEN 5 MG/325 MG TAB PO PRN (21:29)
[2018-01-15] VITALS (26 sets, daily range): BP systolic 105–135; BP diastolic 53–75; PULSE 78–102; RESP 18; TEMP 98.1–100; O2SAT 91–97
[2018-01-15] MEDS: oxyCODONE/ACETAMINOPHEN 10 MG/325 MG TAB PO PRN (00:08)
[2018-01-15] MEDS: INSULIN ASPART SUPPLEMENTAL SCALE SQ SCH ×6 (02:00→22:00)
[2018-01-15] MEDS: ceFAZolin 2 GM PREMIX 50 ML IV SCH (03:37)
[2018-01-15] MEDS: oxyCODONE/ACETAMINOPHEN 5 MG/325 MG TAB PO PRN ×3 (03:37→20:39)
[2018-01-15] MEDS: KETOROLAC TROMETHAMINE 60 MG/2 ML (IM) VIAL IM SCH ×3 (06:06→11:22)
[2018-01-15] MEDS: PANTOPRAZOLE SOD 40 MG DELAYED RELEASE TAB PO SCH (06:06)
[2018-01-15] MEDS: AMIODARONE 200 MG TAB PO SCH ×3 (06:06→20:39)
[2018-01-15 06:20] LABS: AUTOMATED NEUTROPHIL # 8.3 TH/MM3 (1.8-7.7); BASOPHIL % 0.3 % (0.0-2.0); EOSINOPHIL % 0.4 % (0.0-4.0); HEMATOCRIT 31.5 % (39.0-51.0); HEMOGLOBIN 10.8 GM/DL (13.0-17.0); LYMPHOCYTE # 0.6 TH/MM3 (1.0-4.8); MEAN CELL VOLUME 81.3 FL (80.0-100.0); MEAN CORPUSCULAR HEMOGLOBIN 27.9 PG (27.0-34.0); MEAN CORPUSCULAR HGB CONC 34.3 % (32.0-36.0); MEAN PLATELET VOLUME 9.2 FL (7.0-11.0); MONO % 8.9 % (0.0-8.0); MONOCYTE # 0.9 TH/MM3 (0-0.9); NEUT % 84.4 % (16.0-70.0); PLATELET COUNT 144 TH/MM3 (150-450); RED BLOOD COUNT 3.88 MIL/MM3 (4.50-5.90); RED CELL DISTRIBUTION WIDTH 14.9 % (11.6-17.2); WHITE BLOOD COUNT 9.9 TH/MM3 (4.0-11.0)
[2018-01-15 06:43] LABS: BICARBONATE 28.5 MEQ/L (21.0-32.0); CALCIUM 8.2 MG/DL (8.5-10.1); CREATININE 1.37 MG/DL (0.60-1.30); MAGNESIUM 2.3 MG/DL (1.5-2.5)
[2018-01-15] MEDS: SODIUM CHLORIDE 0.9% FLUSH 10 ML FLUSH IV FLUSH SCH ×2 (09:00→20:39)
[2018-01-15] MEDS: DOCUSATE SODIUM 100 MG CAP PO SCH ×2 (09:00→20:39)
[2018-01-15] MEDS: METOCLOPRAMIDE HCL 10 MG/2 ML VIAL IV PUSH SCH ×4 (09:06→20:46)
[2018-01-15] MEDS: DOCUSATE SODIUM 50 MG/SENNA 8.6 MG TAB PO SCH ×2 (09:06→20:47)
[2018-01-15] MEDS: MAGNESIUM HYDROXIDE SUSP 30 ML CUP PO SCH (09:07)
[2018-01-15] MEDS: MULTIVITAMINS/MINERALS THERAPEUTIC TAB PO SCH (09:07)
[2018-01-15] MEDS: ASPIRIN 81 MG CHEW TAB PO SCH (09:07)
[2018-01-15] MEDS: ATORVASTATIN 40 MG TAB PO SCH (09:07)
[2018-01-15] MEDS: POLYETHYLENE GLYCOL 17 GM PKG PO SCH (09:07)
--- NOTE | 2018-01-15 11:24 | PD.CAR.PN ---
CVT Progress Note CVT: POD #: 2 Subjective/Hospital Course: A 52-year-old male admitted 01/08/2018 at 0700. Apparently woke up earlier that morning with chest pressure associated receive some aspirin and sublingual nitro with some relief. Chest pain occurred again. He was given some morphine and had an allergic reaction to the drug. He says he has had some chest discomfort over the past year, but with much less intensity. Denies any palpitations. No shortness of breath, no paroxysmal nocturnal dyspnea. He was found to have an acute non-ST segment MD, underwent cardiac catheterization this morning which showed an ejection fraction of 60%, left main disease of 30%, the proximal LAD 90%, circumflex was 40% and the RCA 95%. We were consulted to evaluate for coronary artery bypass grafting. PAST MEDICAL HISTORY: Includes hyperlipidemia, hypertension, diabetes mellitus on oral medication. 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 01/10 appreciate assistance from Hematology, Factor 9 lab pending will schedule for surgery once cleared by Donn/ Dr Zapien spoke with pt and daughter no chest pain last night 01/11 waiting on facto 9 lab results/ spoke with Donn PEARL FISHERMAN, may not be available until tuesday apparently this is a x-linked mutation. discussed that the only way to have obtained it is if his mother was a carrier ( per Donn ) pt anxious to proceed with surgery 01/12 scheduled for surgery in am 01/14/18 c/o being uncomfortable in chair. 01/15/18 Doing wll. No complaints today Objective: Vital Signs Date Time Temp Pulse Resp B/P (MAP) Pulse Ox O2 Delivery O2 Flow Rate FiO2 01/15/18 10:00 97 01/15/18 09:00 93 01/15/18 08:00 87 01/15/18 08:00 98.1 92 18 127/66 (86) 95 01/15/18 07:52 93 21 01/15/18 06:13 87 01/15/18 05:00 88 01/15/18 04:51 98.4 84 127/65 (85) 94 01/15/18 04:00 86 01/15/18 03:00 84 01/15/18 02:00 84 01/15/18 01:00 82 01/15/18 00:35 98.7 84 121/56 (77) 91 01/15/18 00:00 92 01/14/18 23:00 84 01/14/18 22:00 80 01/14/18 21:30 21 01/14/18 21:00 96 01/14/18 20:00 88 01/14/18 19:00 98.7 87 111/66 (81) 90 Arterial Line 01/14/18 19:00 84 01/14/18 18:00 83 01/14/18 16:00 76 01/14/18 16:00 98.6 76 16 99/52 (68) 91 01/14/18 14:20 16 01/14/18 12:10 16 Labs: Laboratory Tests Test 01/15/18 06:00 White Blood Count 9.9 TH/MM3 (4.0-11.0) Red Blood Count 3.88 MIL/MM3 (4.50-5.90) Hemoglobin 10.8 GM/DL (13.0-17.0) Hematocrit 31.5 % (39.0-51.0) Mean Corpuscular Volume 81.3 FL (80.0-100.0) Mean Corpuscular Hemoglobin 27.9 PG (27.0-34.0) Mean Corpuscular Hemoglobin Concent 34.3 % (32.0-36.0) Red Cell Distribution Width 14.9 % (11.6-17.2) Platelet Count 144 TH/MM3 (150-450) Mean Platelet Volume 9.2 FL (7.0-11.0) Neutrophils (%) (Auto) 84.4 % (16.0-70.0) Lymphocytes (%) (Auto) 6.0 % (9.0-44.0) Monocytes (%) (Auto) 8.9 % (0.0-8.0) Eosinophils (%) (Auto) 0.4 % (0.0-4.0) Basophils (%) (Auto) 0.3 % (0.0-2.0) Neutrophils # (Auto) 8.3 TH/MM3 (1.8-7.7) Lymphocytes # (Auto) 0.6 TH/MM3 (1.0-4.8) Monocytes # (Auto) 0.9 TH/MM3 (0-0.9) Eosinophils # (Auto) 0.0 TH/MM3 (0-0.4) Basophils # (Auto) 0.0 TH/MM3 (0-0.2) CBC Comment DIFF FINAL Differential Comment Blood Urea Nitrogen 18 MG/DL (7-18) Creatinine 1.37 MG/DL (0.60-1.30) Random Glucose 143 MG/DL (74-106) Calcium Level 8.2 MG/DL (8.5-10.1) Magnesium Level 2.3 MG/DL (1.5-2.5) Sodium Level 140 MEQ/L (136-145) Potassium Level 4.3 MEQ/L (3.5-5.1) Chloride Level 106 MEQ/L (98-107) Carbon Dioxide Level 28.5 MEQ/L (21.0-32.0) Anion Gap 6 MEQ/L (5-15) Estimat Glomerular Filtration Rate 66 ML/MIN (>89) Result Diagram: 01/15/18 0600 01/15/18 0600 Cardiovascular: RRR Telemetry: NSR Pulmonary: Decreased BS bilat GI/: NABS Incision: dry and intact CT: ~320ml/last 16 hrs Plan: Continue chest tubes one more day Encourage ambulation Chest tubes to water seal Anticipate d/c Tuesday Stim BM (1) NSTEMI (non-ST elevated myocardial infarction) Plan: Severe 2 vessel CAD on cath . Stable overnight. No further angina. EF normal by cath and echo. for surgery in am (2) Hypertension Plan: Fluctuating BP's. Rec continue to monitor. (3) Hyperlipidemia Plan: Suboptimal LDL level. Desirable <<< 70. Continue atorvastatin at higher dosing. Problem Qualifiers (1) Hypertension: Qualified Codes: I10 - Essential (primary) hypertension (2) Hyperlipidemia: Qualified Codes: E78.00 - Pure hypercholesterolemia, unspecified Kelsea Zapien MD Jan 15, 2018 11:24
[2018-01-15] MEDS: KETOROLAC TROMETHAMINE 30 MG/ML (IVP) VIAL IM SCH ×2 (17:12→23:48)
--- NOTE | 2018-01-15 18:57 | HHI.PR ---
Subjective Remarks Patient is doing well, ambulating the halls without hesitation. He is hoping to go home tomorrow, his surgeon was predicting 2 days more. Objective Vitals Vital Signs Date Time Temp Pulse Resp B/P (MAP) Pulse Ox O2 Delivery O2 Flow Rate FiO2 01/15/18 18:00 90 01/15/18 17:00 101 01/15/18 16:00 93 01/15/18 15:00 98.8 82 18 133/75 (94) 95 01/15/18 15:00 97 01/15/18 14:00 98 01/15/18 13:00 78 01/15/18 12:00 94 01/15/18 11:00 98.9 94 18 105/53 (70) 94 01/15/18 11:00 97 01/15/18 10:00 97 01/15/18 09:00 93 01/15/18 08:00 87 01/15/18 08:00 98.1 92 18 127/66 (86) 95 01/15/18 07:52 93 21 01/15/18 06:13 87 01/15/18 05:00 88 01/15/18 04:51 98.4 84 127/65 (85) 94 01/15/18 04:00 86 01/15/18 03:00 84 01/15/18 02:00 84 01/15/18 01:00 82 01/15/18 00:35 98.7 84 121/56 (77) 91 01/15/18 00:00 92 01/14/18 23:00 84 01/14/18 22:00 80 01/14/18 21:30 21 01/14/18 21:00 96 01/14/18 20:00 88 01/14/18 19:00 98.7 87 111/66 (81) 90 Arterial Line 01/14/18 19:00 84 I/O 01/14/18 01/14/18 01/14/18 01/15/18 01/15/18 01/15/18 07:00 15:00 23:00 07:00 15:00 23:00 Intake Total 480 ml 400 ml 600 ml 770 ml 960 ml Output Total 1540 ml 410 ml 1020 ml 1030 ml Balance -1060 ml 400 ml 190 ml -250 ml -70 ml Intake Oral 480 ml 600 ml 720 ml 960 ml IV Total 400 ml 50 ml Output Urine Total 1290 ml 350 ml 800 ml 900 ml Chest Tube Drainage Total 250 ml 60 ml 220 ml 130 ml # Bowel Movements 0 0 Result Diagram: 01/15/18 0601/15/18 06 Objective Remarks GENERAL: Obese man who underwent open heart surgery SKIN: Vertical incision under surgical bandage HEAD: Normocephalic. EYES: No scleral icterus. No injection or drainage. NECK: Supple, trachea midline. No JVD or lymphadenopathy. CARDIOVASCULAR: Regular rate and rhythm without murmurs, gallops, or rubs. RESPIRATORY: Breath sounds equal bilaterally. No accessory muscle use. GASTROINTESTINAL: Abdomen soft, non-tender, nondistended. EXTREMITIES: No cyanosis, or edema. NEUROLOGICAL: Awake, alert, and oriented x 3. Non-focal. A/P Problem List: (1) NSTEMI (non-ST elevated myocardial infarction) ICD Code: I21.4 - Non-ST elevation (NSTEMI) myocardial infarction Status: Acute (2) Hypertension ICD Code: I10 - Essential (primary) hypertension Status: Chronic (3) Obese ICD Code: E66.9 - Obesity, unspecified (4) Hyperlipidemia ICD Code: E78.5 - Hyperlipidemia, unspecified Status: Chronic (5) Diabetes ICD Code: E11.9 - Type 2 diabetes mellitus without complications Assessment and Plan NSTEMI s/p CABG 01/13 Cardiac catheterization revealed extensive disease in the RCA and LAD that was not able to be fixed with stenting Coronary bypass surgery performed 01/13/18, patient doing well postop, ambulating well Continue beta-keila, PADMINI inhibitor when p.o. 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, therefore if his father has it he likely does not (Y chromosome from father) Appreciate Oncology's assistance with clearing of the details of this condition Hypertension, hyperlipidemia Continue home medications Type 2 diabetes Sliding scale insulin coverage with Accu-Cheks Diabetic diet DVT prophylaxis Heparin Discharge planning Expected to discharge home in 2 days with home health care Problem Qualifiers (1) Hypertension: Qualified Codes: I10 - Essential (primary) hypertension (2) Hyperlipidemia: Qualified Codes: E78.00 - Pure hypercholesterolemia, unspecified Ray Borrego MD Jan 15, 2018 18:57
[2018-01-15] MEDS: SENNOSIDES 8.6 MG TAB PO SCH (20:39)
[2018-01-16] VITALS (30 sets, daily range): BP systolic 113–130; BP diastolic 60–71; PULSE 78–104; RESP 17–18; TEMP 98.1–100; O2SAT 94–97
[2018-01-16] MEDS: AMIODARONE 200 MG TAB PO SCH ×3 (05:22→20:54)
[2018-01-16] MEDS: PANTOPRAZOLE SOD 40 MG DELAYED RELEASE TAB PO SCH (05:22)
[2018-01-16] MEDS: KETOROLAC TROMETHAMINE 30 MG/ML (IVP) VIAL IM SCH (05:22)
[2018-01-16] MEDS: INSULIN ASPART SUPPLEMENTAL SCALE SQ SCH ×5 (05:29→22:00)
[2018-01-16] MEDS: POLYETHYLENE GLYCOL 17 GM PKG PO SCH (09:11)
[2018-01-16] MEDS: MULTIVITAMINS/MINERALS THERAPEUTIC TAB PO SCH (09:12)
[2018-01-16] MEDS: DOCUSATE SODIUM 100 MG CAP PO SCH ×2 (09:12→21:00)
[2018-01-16] MEDS: MAGNESIUM HYDROXIDE SUSP 30 ML CUP PO SCH (09:12)
[2018-01-16] MEDS: SODIUM CHLORIDE 0.9% FLUSH 10 ML FLUSH IV FLUSH SCH ×2 (09:13→20:55)
[2018-01-16] MEDS: ASPIRIN 81 MG CHEW TAB PO SCH (09:13)
[2018-01-16] MEDS: ATORVASTATIN 40 MG TAB PO SCH (09:13)
[2018-01-16] MEDS ORDERED: PILL SPLITTER OTHER PRN (09:30)
[2018-01-16] MEDS: METOPROLOL TARTRATE 25 MG TAB PO SCH ×2 (10:24→20:55)
--- NOTE | 2018-01-16 10:32 | PD.CAR.PN ---
CVT Progress Note Subjective/Hospital Course: A 52-year-old male admitted 01/08/2018 at 0700. Apparently woke up earlier that morning with chest pressure associated receive some aspirin and sublingual nitro with some relief. Chest pain occurred again. He was given some morphine and had an allergic reaction to the drug. He says he has had some chest discomfort over the past year, but with much less intensity. Denies any palpitations. No shortness of breath, no paroxysmal nocturnal dyspnea. He was found to have an acute non-ST segment CO, underwent cardiac catheterization this morning which showed an ejection fraction of 60%, left main disease of 30%, the proximal LAD 90%, circumflex was 40% and the RCA 95%. We were consulted to evaluate for coronary artery bypass grafting. PAST MEDICAL HISTORY: Includes hyperlipidemia, hypertension, diabetes mellitus on oral medication. 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 discussed that the only way to have obtained it is if his mother was a carrier ( per Donn ) pt anxious to proceed with surgery 01/12 scheduled for surgery in am 01/14/18 c/o being uncomfortable in chair. 01/15/18 Doing wll. No complaints today 01/16 on room air chest tube dc without difficulty small BM since surgery started on low dose BB mild ST elevation/ + pericardial rub/ probable pericarditis on scheduled NSAID eval for dc in am Objective: GENERAL: A&O x 3 SKIN: Warm and dry. prevena dressing to chest , leg incision intact HEAD: Normocephalic. EYES: No scleral icterus. No injection or drainage. NECK: Supple, trachea midline. No JVD or lymphadenopathy. CARDIOVASCULAR: Regular rate and rhythm without murmurs, gallops, + rubs. RESPIRATORY: Breath sounds equal bilaterally. No accessory muscle use. diminished in the bases GASTROINTESTINAL: Abdomen soft, non-tender, nondistended. MUSCULOSKELETAL: No cyanosis, or edema. BACK: Nontender without obvious deformity. No CVA tenderness. Vital Signs Date Time Temp Pulse Resp B/P (MAP) Pulse Ox O2 Delivery O2 Flow Rate FiO2 01/16/18 10:00 99 01/16/18 09:18 96 21 01/16/18 09:00 90 01/16/18 08:00 84 01/16/18 07:15 98.1 96 17 113/70 (84) 96 01/16/18 07:00 98 01/16/18 06:00 94 01/16/18 05:05 89 01/16/18 04:46 98.4 92 124/70 (88) 96 01/16/18 04:00 87 01/16/18 03:00 90 01/16/18 02:00 102 01/16/18 01:00 92 01/16/18 00:49 100.0 101 121/67 (85) 94 01/16/18 00:00 104 01/15/18 23:00 102 01/15/18 22:00 102 01/15/18 21:00 102 01/15/18 20:00 98 01/15/18 19:00 100.0 99 135/62 (86) 97 01/15/18 19:00 92 01/15/18 18:00 90 01/15/18 17:00 101 01/15/18 16:00 93 01/15/18 15:00 98.8 82 18 133/75 (94) 95 01/15/18 15:00 97 01/15/18 14:00 98 01/15/18 13:00 78 01/15/18 12:00 94 01/15/18 11:00 98.9 94 18 105/53 (70) 94 01/15/18 11:00 97 Result Diagram: 01/15/18 0600 01/15/18 0600 (1) S/P CABG x 2 Plan: on ASA statin BB amiodarone pulm toileting OOB/ ambulate (2) NSTEMI (non-ST elevated myocardial infarction) (3) Hypertension Plan: controlled (4) Hyperlipidemia Plan: Suboptimal LDL level. Desirable <<< 70. Continue atorvastatin at higher dosing. (5) Pericarditis Plan: scheduled NSAID Problem Qualifiers (1) Hypertension: Qualified Codes: I10 - Essential (primary) hypertension (2) Hyperlipidemia: Qualified Codes: E78.00 - Pure hypercholesterolemia, unspecified Luther,Betty R. COORDINATOR OF PLACEMENT Jan 16, 2018 10:32
[2018-01-16] MEDS ORDERED: KETOROLAC TROMETHAMINE 30 MG/ML (IVP) VIAL IV PUSH SCH (12:00)
--- NOTE | 2018-01-16 12:22 | HHI.PR ---
Subjective Remarks Follow-up three-vessel coronary artery disease January 16, 2018-patient seen and examined, denies any chest pain or shortness of breath. Chest tube with minimal output. Currently afebrile. Objective Vitals Vital Signs Date Time Temp Pulse Resp B/P (MAP) Pulse Ox O2 Delivery O2 Flow Rate FiO2 01/16/18 11:00 99.5 88 18 116/60 (78) 96 01/16/18 11:00 88 01/16/18 10:00 99 01/16/18 09:18 96 21 01/16/18 09:00 90 01/16/18 08:00 84 01/16/18 07:15 98.1 96 17 113/70 (84) 96 01/16/18 07:00 98 01/16/18 06:00 94 01/16/18 05:05 89 01/16/18 04:46 98.4 92 124/70 (88) 96 01/16/18 04:00 87 01/16/18 03:00 90 01/16/18 02:00 102 01/16/18 01:00 92 01/16/18 00:49 100.0 101 121/67 (85) 94 01/16/18 00:00 104 01/15/18 23:00 102 01/15/18 22:00 102 01/15/18 21:00 102 01/15/18 20:00 98 01/15/18 19:00 100.0 99 135/62 (86) 97 01/15/18 19:00 92 01/15/18 18:00 90 01/15/18 17:00 101 01/15/18 16:00 93 01/15/18 15:00 98.8 82 18 133/75 (94) 95 01/15/18 15:00 97 01/15/18 14:00 98 01/15/18 13:00 78 I/O 01/15/18 01/15/18 01/15/18 01/16/18 01/16/18 01/16/18 07:00 15:00 23:00 07:00 15:00 23:00 Intake Total 770 ml 960 ml 600 ml Output Total 1020 ml 1030 ml 400 ml Balance -250 ml -70 ml 200 ml Intake Oral 720 ml 960 ml 600 ml IV Total 50 ml Output Urine Total 800 ml 900 ml 400 ml Chest Tube Drainage Total 220 ml 130 ml 0 ml # Bowel Movements 0 Result Diagram: 01/15/18 0600 01/15/18 0600 Imaging Last Impressions Chest X-Ray 01/14/18 0500 Signed Impressions: Service Date/Time: Sunday, January 14, 2018 05:08 - CONCLUSION: 1. Interval extubation. 2. Worsening bibasilar consolidations. 3. Cardiomegaly. Wallace Peraza Jr., MD Lower Extremity Ultrasound 01/09/18 0000 Signed Impressions: Service Date/Time: Tuesday, January 09, 2018 15:53 - CONCLUSION: Greater saphenous veins are patent throughout bilaterally. Measurements as above. Skyler Ha MD Carotid Artery Ultrasound 01/09/18 0000 Signed Impressions: Service Date/Time: Tuesday, January 09, 2018 14:58 - CONCLUSION: No hemodynamically significant stenosis in either carotid artery. Christopher Almanza MD Objective Remarks GENERAL: NAD SKIN: Warm and dry. HEAD: Normocephalic. EYES: No scleral icterus. No injection or drainage. NECK: Supple, trachea midline. No JVD or lymphadenopathy. CARDIOVASCULAR: Regular rate and rhythm without murmurs, gallops, or rubs. RESPIRATORY: Breath sounds equal bilaterally. No accessory muscle use. Chest tube in place-left sided chest GASTROINTESTINAL: Abdomen soft, non-tender, nondistended. MUSCULOSKELETAL: No cyanosis, or edema. BACK: Nontender without obvious deformity. No CVA tenderness. Procedures CABG x 2 A/P Problem List: (1) Multi-vessel coronary artery stenosis ICD Code: I25.10 - Atherosclerotic heart disease of [place] coronary artery without angina pectoris (2) NSTEMI (non-ST elevated myocardial infarction) ICD Code: I21.4 - Non-ST elevation (NSTEMI) myocardial infarction Status: Acute (3) Hypertension ICD Code: I10 - Essential (primary) hypertension Status: Chronic (4) Obese ICD Code: E66.9 - Obesity, unspecified (5) Hyperlipidemia ICD Code: E78.5 - Hyperlipidemia, unspecified Status: Chronic (6) Diabetes ICD Code: E11.9 - Type 2 diabetes mellitus without complications (7) S/P CABG x 2 ICD Code: Z95.1 - Presence of aortocoronary bypass graft (8) family history of factor IX deficiency Assessment and Plan 52-year-old man with Multivessel coronary artery disease Status post CABG 2 Currently on aspirin, beta-keila, statin, amiodarone Management per cardiothoracic surgery Chest tube management per CTS NSTEMI s/p CABG 01/13 Cardiac catheterization revealed extensive disease in the RCA and LAD that was not able to be fixed with stenting 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
[2018-01-16] MEDS: INDOMETHACIN 25 MG CAP PO SCH (20:53)
[2018-01-16] MEDS: SENNOSIDES 8.6 MG TAB PO SCH (21:00)
[2018-01-17] VITALS (13 sets, daily range): BP systolic 120–131; BP diastolic 66–74; PULSE 75–89; TEMP 98–99.3; O2SAT 96–99
--- NOTE | 2018-01-17 04:29 | RADRPT ---
EXAM DATE/TIME: 01/17/2018 03:41 [facility] COMPARISON: CHEST SINGLE AP, January 14, 2018, 5:08. INDICATIONS : Short of breath. MEDICAL HISTORY : Hypertension. SURGICAL HISTORY : CABG. ENCOUNTER: Subsequent ACUITY: 3 days PAIN SCORE: 5/10 LOCATION: Bilateral chest FINDINGS: A single view of the chest demonstrates postoperative median sternotomy. Cardiomegaly. Bilateral most ly basilar airspace disease present. No pneumothorax. CONCLUSION: 1. Cardiomegaly with bilateral mostly basilar airspace disease similar to January 14. Removal of previo us right central line and left-sided chest tube. Kieran Restrepo MD on January 17, 2018 at 4:25 Board Certified Radiologist. This report was verified electronically.
[2018-01-17] MEDS: INSULIN ASPART SUPPLEMENTAL SCALE SQ SCH (06:00)
[2018-01-17 06:19] LABS: HEMOGLOBIN 10.5 GM/DL (13.0-17.0); MEAN CELL VOLUME 82.6 FL (80.0-100.0); MEAN CORPUSCULAR HEMOGLOBIN 27.2 PG (27.0-34.0); MEAN CORPUSCULAR HGB CONC 32.9 % (32.0-36.0); MEAN PLATELET VOLUME 9.5 FL (7.0-11.0); PLATELET COUNT 190 TH/MM3 (150-450); RED BLOOD COUNT 3.88 MIL/MM3 (4.50-5.90); RED CELL DISTRIBUTION WIDTH 15.3 % (11.6-17.2)
[2018-01-17] MEDS: AMIODARONE 200 MG TAB PO SCH (06:24)
[2018-01-17] MEDS: PANTOPRAZOLE SOD 40 MG DELAYED RELEASE TAB PO SCH (06:24)
[2018-01-17] MEDS ORDERED: POTASSIUM CHLORIDE 10 MEQ CONTROLLED RELEASE TAB PO ONE (08:15)
[2018-01-17] MEDS ORDERED: FUROSEMIDE 40 MG/4 ML VIAL IV PUSH ONE (08:15)
[2018-01-17] MEDS: ATORVASTATIN 40 MG TAB PO SCH (08:41)
[2018-01-17] MEDS: MULTIVITAMINS/MINERALS THERAPEUTIC TAB PO SCH (08:42)
[2018-01-17] MEDS: INDOMETHACIN 25 MG CAP PO SCH (08:42)
[2018-01-17] MEDS: METOPROLOL TARTRATE 25 MG TAB PO SCH (08:43)
[2018-01-17] MEDS: ASPIRIN 81 MG CHEW TAB PO SCH (08:43)
[2018-01-17] MEDS: POLYETHYLENE GLYCOL 17 GM PKG PO SCH (08:43)
[2018-01-17] MEDS: MAGNESIUM HYDROXIDE SUSP 30 ML CUP PO SCH (08:43)
[2018-01-17] MEDS: DOCUSATE SODIUM 100 MG CAP PO SCH (08:43)
[2018-01-17] MEDS: SODIUM CHLORIDE 0.9% FLUSH 10 ML FLUSH IV FLUSH SCH (08:44)
--- NOTE | 2018-01-17 09:00 | HHI.PR ---
Subjective Remarks Follow-up three-vessel coronary artery disease January 16, 2018-patient seen and examined, denies any chest pain or shortness of breath. Chest tube with minimal output. Currently afebrile. January 17, 2018-patient seen and examined, no acute event overnight. Chest tube was removed yesterday. Looking forward going home today Objective Vitals Vital Signs Date Time Temp Pulse Resp B/P (MAP) Pulse Ox O2 Delivery O2 Flow Rate FiO2 01/17/18 08:00 89 01/17/18 07:50 99.3 87 120/66 (84) 97 01/17/18 07:00 83 01/17/18 06:07 89 01/17/18 05:39 83 01/17/18 04:29 98.0 83 131/74 (93) 96 01/17/18 04:28 75 01/17/18 03:00 83 01/17/18 02:16 81 01/17/18 01:15 79 01/17/18 00:28 89 01/16/18 23:59 98.5 87 130/70 (90) 96 01/16/18 23:00 78 01/16/18 22:00 81 01/16/18 21:00 82 01/16/18 20:25 97 21 01/16/18 20:00 89 01/16/18 19:00 87 01/16/18 19:00 99.2 87 128/64 (85) 97 01/16/18 18:00 90 01/16/18 17:00 93 01/16/18 16:00 87 01/16/18 15:00 98.6 88 17 123/71 (88) 97 01/16/18 15:00 86 01/16/18 14:00 87 01/16/18 13:28 19 01/16/18 13:00 89 01/16/18 12:00 83 01/16/18 11:00 99.5 88 18 116/60 (78) 96 01/16/18 11:00 88 01/16/18 10:00 99 01/16/18 09:18 96 21 01/16/18 09:00 90 I/O 01/16/18 01/16/18 01/16/18 01/17/18 01/17/18 01/17/18 07:00 15:00 23:00 07:00 15:00 23:00 Intake Total 600 ml 360 ml 480 ml 50 ml Output Total 400 ml 450 ml 400 ml Balance 200 ml -90 ml 80 ml 50 ml Intake Oral 600 ml 360 ml 480 ml IV Total 50 ml Output Urine Total 400 ml 450 ml 400 ml Chest Tube Drainage Total 0 ml # Voids 1 # Bowel Movements 1 Result Diagram: 01/17/18 0546 01/15/18 0600 Imaging Last Impressions Chest X-Ray 01/17/18 0600 Signed Impressions: Service Date/Time: Wednesday, January 17, 2018 03:41 - CONCLUSION: 1. Cardiomegaly with bilateral mostly basilar airspace disease similar to January 14. Removal of previous right central line and left-sided chest tube. Kieran Restrepo MD Lower Extremity Ultrasound 01/09/18 0000 Signed Impressions: Service Date/Time: Tuesday, January 09, 2018 15:53 - CONCLUSION: Greater saphenous veins are patent throughout bilaterally. Measurements as above. Skyler Ha MD Carotid Artery Ultrasound 01/09/18 0000 Signed Impressions: Service Date/Time: Tuesday, January 09, 2018 14:58 - CONCLUSION: No hemodynamically significant stenosis in either carotid artery. Christopher Almanza MD Objective Remarks GENERAL: NAD SKIN: Warm and dry. HEAD: Normocephalic. EYES: No scleral icterus. No injection or drainage. NECK: Supple, trachea midline. No JVD or lymphadenopathy. CARDIOVASCULAR: Regular rate and rhythm without murmurs, gallops, or rubs. RESPIRATORY: Breath sounds equal bilaterally. No accessory muscle use. GASTROINTESTINAL: Abdomen soft, non-tender, nondistended. MUSCULOSKELETAL: No cyanosis, or edema. BACK: Nontender without obvious deformity. No CVA tenderness. Procedures CABG x 2 A/P Problem List: (1) Multi-vessel coronary artery stenosis ICD Code: I25.10 - Atherosclerotic heart disease of [place] coronary artery without angina pectoris (2) NSTEMI (non-ST elevated myocardial infarction) ICD Code: I21.4 - Non-ST elevation (NSTEMI) myocardial infarction Status: Acute (3) Hypertension ICD Code: I10 - Essential (primary) hypertension Status: Chronic (4) Obese ICD Code: E66.9 - Obesity, unspecified (5) Hyperlipidemia ICD Code: E78.5 - Hyperlipidemia, unspecified Status: Chronic (6) Diabetes ICD Code: E11.9 - Type 2 diabetes mellitus without complications (7) S/P CABG x 2 ICD Code: Z95.1 - Presence of aortocoronary bypass graft (8) family history of factor IX deficiency Assessment and Plan 52-year-old man with Multivessel coronary artery disease Status post CABG 2 Currently on aspirin, beta-keila, statin, amiodarone Management per cardiothoracic surgery NSTEMI s/p CABG 01/13 Cardiac catheterization revealed extensive disease in the RCA and LAD that was not able to be fixed with stenting 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
[2018-01-17] MEDS ORDERED: ATOR40TA16 PO (10:11)
[2018-01-17] MEDS ORDERED: INDO25CA PO (10:11)
[2018-01-17] MEDS ORDERED: OXYC1TAB63 PO (10:11)
[2018-01-17] MEDS ORDERED: METO25TA3 PO (10:11)
[2018-01-17] MEDS ORDERED: DOCU1CAP39 PO (10:11)
[2018-01-17] MEDS ORDERED: THERM PO (10:11)
[2018-01-17] MEDS ORDERED: AMIO200T PO (10:11)
[2018-01-17] MEDS ORDERED: ASPI81 PO (10:11)
--- NOTE | 2018-01-17 10:41 | PD.CAR.PN ---
CVT Progress Note Subjective/Hospital Course: A 52-year-old male admitted 01/08/2018 at 0700. Apparently woke up earlier that morning with chest pressure associated receive some aspirin and sublingual nitro with some relief. Chest pain occurred again. He was given some morphine and had an allergic reaction to the drug. He says he has had some chest discomfort over the past year, but with much less intensity. Denies any palpitations. No shortness of breath, no paroxysmal nocturnal dyspnea. He was found to have an acute non-ST segment NC, underwent cardiac catheterization this morning which showed an ejection fraction of 60%, left main disease of 30%, the proximal LAD 90%, circumflex was 40% and the RCA 95%. We were consulted to evaluate for coronary artery bypass grafting. PAST MEDICAL HISTORY: Includes hyperlipidemia, hypertension, diabetes mellitus on oral medication. 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 discussed that the only way to have obtained it is if his mother was a carrier ( per Donn ) pt anxious to proceed with surgery 01/12 scheduled for surgery in am 01/14/18 c/o being uncomfortable in chair. 01/15/18 Doing wll. No complaints today 01/16 on room air chest tube dc without difficulty small BM since surgery started on low dose BB mild ST elevation/ + pericardial rub/ probable pericarditis on scheduled NSAID eval for dc in am 01/17 pt doing well ok for dc from CVS standpoint continue indocin daily x 2 weeks Objective: GENERAL: A&O x 3 SKIN: Warm and dry. Prevena to chest , incision intact to left leg HEAD: Normocephalic. EYES: No scleral icterus. No injection or drainage. NECK: Supple, trachea midline. No JVD or lymphadenopathy. CARDIOVASCULAR: Regular rate and rhythm without murmurs, gallops, or rubs. RESPIRATORY: Breath sounds equal bilaterally. No accessory muscle use. GASTROINTESTINAL: Abdomen soft, non-tender, nondistended. MUSCULOSKELETAL: No cyanosis, or edema. BACK: Nontender without obvious deformity. No CVA tenderness. Vital Signs Date Time Temp Pulse Resp B/P (MAP) Pulse Ox O2 Delivery O2 Flow Rate FiO2 01/17/18 09:00 85 01/17/18 08:00 89 01/17/18 07:50 99.3 87 120/66 (84) 97 01/17/18 07:00 83 01/17/18 06:07 89 01/17/18 05:39 83 01/17/18 04:29 98.0 83 131/74 (93) 96 01/17/18 04:28 75 01/17/18 03:00 83 01/17/18 02:16 81 01/17/18 01:15 79 01/17/18 00:28 89 01/16/18 23:59 98.5 87 130/70 (90) 96 01/16/18 23:00 78 01/16/18 22:00 81 01/16/18 21:00 82 01/16/18 20:25 97 21 01/16/18 20:00 89 01/16/18 19:00 87 01/16/18 19:00 99.2 87 128/64 (85) 97 01/16/18 18:00 90 01/16/18 17:00 93 01/16/18 16:00 87 01/16/18 15:00 98.6 88 17 123/71 (88) 97 01/16/18 15:00 86 01/16/18 14:00 87 01/16/18 13:28 19 01/16/18 13:00 89 01/16/18 12:00 83 01/16/18 11:00 99.5 88 18 116/60 (78) 96 01/16/18 11:00 88 Labs: Laboratory Tests Test 01/17/18 05:46 White Blood Count 8.0 TH/MM3 (4.0-11.0) Red Blood Count 3.88 MIL/MM3 (4.50-5.90) Hemoglobin 10.5 GM/DL (13.0-17.0) Hematocrit 32.0 % (39.0-51.0) Mean Corpuscular Volume 82.6 FL (80.0-100.0) Mean Corpuscular Hemoglobin 27.2 PG (27.0-34.0) Mean Corpuscular Hemoglobin Concent 32.9 % (32.0-36.0) Red Cell Distribution Width 15.3 % (11.6-17.2) Platelet Count 190 TH/MM3 (150-450) Mean Platelet Volume 9.5 FL (7.0-11.0) Result Diagram: 01/17/18 0546 01/15/18 0600 Telemetry: NSR (1) S/P CABG x 2 Plan: on ASA statin BB amiodarone pulm toileting OOB/ ambulate ok for DC home (2) NSTEMI (non-ST elevated myocardial infarction) (3) Hypertension Plan: controlled (4) Hyperlipidemia Plan: Suboptimal LDL level. Desirable <<< 70. Continue atorvastatin (5) Pericarditis Plan: scheduled NSAID Problem Qualifiers (1) Hypertension: Qualified Codes: I10 - Essential (primary) hypertension (2) Hyperlipidemia: Qualified Codes: E78.00 - Pure hypercholesterolemia, unspecified Betty Sloan Jan 17, 2018 10:41
--- NOTE | 2018-01-17 10:58 | HHI.DS ---
Discharge Summary Admission Date Jan 08, 2018 at 07:54 Discharge Date: Jan 17, 2018 Admitting Diagnosis NSTEMI (1) Multi-vessel coronary artery stenosis ICD Code: I25.10 - Atherosclerotic heart disease of [place] coronary artery without angina pectoris (2) NSTEMI (non-ST elevated myocardial infarction) ICD Code: I21.4 - Non-ST elevation (NSTEMI) myocardial infarction Status: Acute (3) Hypertension ICD Code: I10 - Essential (primary) hypertension Status: Chronic (4) Obese ICD Code: E66.9 - Obesity, unspecified (5) Hyperlipidemia ICD Code: E78.5 - Hyperlipidemia, unspecified Status: Chronic (6) Diabetes ICD Code: E11.9 - Type 2 diabetes mellitus without complications (7) S/P CABG x 2 ICD Code: Z95.1 - Presence of aortocoronary bypass graft (8) family history of factor IX deficiency Procedures CABG x 2 Brief History - From Admission Patient is a 52-year-old -[place] gentleman. He presented to the emergency department chief complaint chest pain. Onset was a couple hours prior to presentation. Patient states that it awakened him from sleep. He tried to get up and "walk it off". But was unable to do so. His pain was 8 out of 10 at the most. Therefore he decided to come to the emergency department for evaluation. He did have some diaphoresis at the time of onset his troponins have been positive now. Patient has been having some chest pain with exertion for some time now. Was evaluated by his primary care provider and underwent a stress test he states that was negative Patient now has positive troponins has been seen by cardiology and is scheduled for cardiac catheterization tomorrow CBC/BMP: 01/17/18 0546 01/15/18 0600 Significant Findings Laboratory Tests Test 01/15/18 06:00 01/17/18 05:46 Red Blood Count 3.88 MIL/MM3 (4.50-5.90) 3.88 MIL/MM3 (4.50-5.90) Hemoglobin 10.8 GM/DL (13.0-17.0) 10.5 GM/DL (13.0-17.0) Hematocrit 31.5 % (39.0-51.0) 32.0 % (39.0-51.0) Platelet Count 144 TH/MM3 (150-450) Neutrophils (%) (Auto) 84.4 % (16.0-70.0) Lymphocytes (%) (Auto) 6.0 % (9.0-44.0) Monocytes (%) (Auto) 8.9 % (0.0-8.0) Neutrophils # (Auto) 8.3 TH/MM3 (1.8-7.7) Lymphocytes # (Auto) 0.6 TH/MM3 (1.0-4.8) Creatinine 1.37 MG/DL (0.60-1.30) Random Glucose 143 MG/DL (74-106) Calcium Level 8.2 MG/DL (8.5-10.1) Estimat Glomerular Filtration Rate 66 ML/MIN (>89) Imaging Last Impressions Chest X-Ray 01/17/18 0600 Signed Impressions: Service Date/Time: Wednesday, January 17, 2018 03:41 - CONCLUSION: 1. Cardiomegaly with bilateral mostly basilar airspace disease similar to January 14. Removal of previous right central line and left-sided chest tube. Kieran Restrepo MD Lower Extremity Ultrasound 01/09/18 0000 Signed Impressions: Service Date/Time: Tuesday, January 09, 2018 15:53 - CONCLUSION: Greater saphenous veins are patent throughout bilaterally. Measurements as above. Skyler Ha MD Carotid Artery Ultrasound 01/09/18 0000 Signed Impressions: Service Date/Time: Tuesday, January 09, 2018 14:58 - CONCLUSION: No hemodynamically significant stenosis in either carotid artery. Christopher Almanza MD PE at Discharge GENERAL: NAD SKIN: Warm and dry. HEAD: Normocephalic. EYES: No scleral icterus. No injection or drainage. NECK: Supple, trachea midline. No JVD or lymphadenopathy. CARDIOVASCULAR: Regular rate and rhythm without murmurs, gallops, or rubs. RESPIRATORY: Breath sounds equal bilaterally. No accessory muscle use. GASTROINTESTINAL: Abdomen soft, non-tender, nondistended. MUSCULOSKELETAL: No cyanosis, or edema. BACK: Nontender without obvious deformity. No CVA tenderness. 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, therefore if his father has it he likely does not (Y chromosome from father) Oncology-Hematology was consulted Hypertension, hyperlipidemia He was treated with his home medications Type 2 diabetes He was placed on a Sliding scale insulin coverage with Accu-Cheks Diabetic diet DVT prophylaxis Heparin Pt Condition on Discharge: Good Discharge Disposition: Disch w/ Home Health Serv Discharge Time: > 30 minutes Discharge Instructions DIET: Follow Instructions for: Diabetic Diet Activities you can perform: Regular-No Restrictions Follow up Referrals: Cardiology - 4 Weeks @ [facility] with Yefri Guillen MD PCP Follow-up - 2 Weeks with Ling Modi MD Vascular Surgery - 2 Weeks with Kelsea Zapien MD New Medications: Amiodarone (Amiodarone) 200 Mg Tab 200 MG PO Q12HR for heart rhythm, #28 TAB 0 Refills Aspirin (Tgt Aspirin) 81 Mg Chw 81 MG PO DAILY for Blood Clot Prevention, #30 EA 2 Refills Atorvastatin (Atorvastatin) 40 Mg Tab 40 MG PO DAILY for Cholesterol Management, #30 TAB 2 Refills Docusate Sodium (Dok) 100 Mg Cap 100 MG PO BID for Constipation, #60 CAP 0 Refills Indomethacin (Indomethacin) 25 Mg Cap 25 MG PO DAILY for inflammation, #14 CAP 0 Refills Take with food, milk, or antacids to decrease stomach adverse effects. Metoprolol Tartrate (Metoprolol Tartrate) 25 Mg Tab 12.5 MG PO Q12HR for Blood Pressure Management, #60 TAB 2 Refills Multiple Vitamins W/ Minerals (Thera M Plus) 1 Tab 1 TAB PO DAILY for multi vitamin, #30 TAB 2 Refills Oxycodone HCl/Acetaminophen (Oxycodone-Acetaminophen 5-325) 5 Mg-325 Mg Tablet 1 TAB PO Q4HR PRN for PAIN SCALE 3 TO 5, #40 TAB 0 Refills Continued Medications: Lisinopril (Lisinopril) 20 Mg Tab 20 MG PO DAILY, #30 TAB 0 Refills Metformin (Metformin) 500 Mg Tab 500 MG PO DAILY for Blood Sugar Management, #30 TAB 0 Refills With a meal Discontinued Medications: Atorvastatin (Atorvastatin) 20 Mg Tab Unknown Dose PO HS for Cholesterol Management, #30 TAB 0 Refills Christopher Arora MD Jan 17, 2018 10:58
== END 2018-01-17 12:00 | disposition home health service (06) | DRG 234 ==
LOC: NEPE 02:46 → NEDA 07:54 → HCIS 11:20 → HCVI 01-13 12:30 → HCPC 01-14 17:13
PROVIDERS: ADMIT Hospitalist; ATTEND Hospitalist
PROC: B2151ZZ Fluoroscopy of Left Heart using Low Osmolar Contrast (ICD-10-PCS; 2018-01-09)
PROC: B2111ZZ Fluoroscopy of Multiple Coronary Arteries using Low Osmolar Contrast (ICD-10-PCS; 2018-01-09)
PROC: 4A023N7 Measurement of Cardiac Sampling and Pressure, Left Heart, Percutaneous Approach (ICD-10-PCS; principal; 2018-01-09 07:30)
PROC: 021009W Bypass Coronary Artery, One Artery from Aorta with Autologous Venous Tissue, Open Approach (ICD-10-PCS; 2018-01-13)
PROC: 06BQ4ZZ Excision of Left Saphenous Vein, Percutaneous Endoscopic Approach (ICD-10-PCS; 2018-01-13)
PROC: 5A1221Z Performance of Cardiac Output, Continuous (ICD-10-PCS; 2018-01-13)
PROC: 5A1935Z Respiratory Ventilation, Less than 24 Consecutive Hours (ICD-10-PCS; 2018-01-13)
PROC: 02100Z9 Bypass Coronary Artery, One Artery from Left Internal Mammary, Open Approach (ICD-10-PCS; 2018-01-13 07:22)
DX: I21.4 Non-ST elevation (NSTEMI) myocardial infarction (principal); I25.119 Atherosclerotic heart disease of native coronary artery with unspecified angina pectoris; Z68.42 Body mass index [BMI] 45.0-49.9, adult; I31.9 Disease of pericardium, unspecified; E66.01 Morbid (severe) obesity due to excess calories; E11.9 Type 2 diabetes mellitus without complications; I10 Essential (primary) hypertension; I45.9 Conduction disorder, unspecified; R00.1 Bradycardia, unspecified; T40.2X5A Adverse effect of other opioids, initial encounter; Y92.238 Other place in hospital as the place of occurrence of the external cause; E87.6 Hypokalemia; E78.00 Pure hypercholesterolemia, unspecified; Z79.82 Long term (current) use of aspirin; Z82.49 Family history of ischemic heart disease and other diseases of the circulatory system; Z83.3 Family history of diabetes mellitus; Z84.89 Family history of other specified conditions; Z79.84 Long term (current) use of oral hypoglycemic drugs
CPT/HCPCS: 36430; 71045; 71046; 76937; 80048; 80053; 80061; 81001; 82272; 82550; 82552; 82948; 83036; 83735; 84100; 84439; 84443; 84484; 85014; 85025; 85027; 85250; 85610; 85730; 86850; 86900; 86901; 86920; 87641; 93005; 93306; 93458; 93880; 93970; 93998; 94002; 94010; 94150; 94640; 94667; 94668; 96365; 96366; 96375; 99152; 99153; C1713; C1769; C1893; J0131; J0690; J1644; J1815; J1817; J1885; J1940; J2150; J2250; J2270; J2310; J2370; J2405; J2440; J2720; J2765; J2930; J3010; J3370; J3475; J3480; J7030; J7050; J7120; P9016; P9045; P9047; Q0163; Q9967